=== PATIENT | male | born 1990 | race Caucasian/White ===

== ENCOUNTER 2016-08-02 16:19 | Emergency (ER) | payer MEDICAID ==
[~2016-08-02] VITALS: Ht 165.1 cm; Wt 71.0 kg
[~2016-08-02 16:19] MED LIST: BACT800T5 PO; CEPH-460 PO
[2016-08-02 16:20] VITALS: BP 119/62; PULSE 72; RESP 15; TEMP 98.1; O2SAT 98
== END 2016-08-02 18:50 | disposition left against medical advice (07) ==
LOC: NED 16:19
DX: Z53.21 Procedure and treatment not carried out due to patient leaving prior to being seen by health care provider (principal)
CPT/HCPCS: 99281

== ENCOUNTER 2017-04-09 21:02 | Inpatient (IN) | payer SELFPAY ==
[~2017-04-09] VITALS: Ht 165.1 cm; Wt 65.0 kg
[2017-04-09 21:09] VITALS: BP 145/68; PULSE 126; RESP 20; TEMP 100.3; O2SAT 96
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
[2017-04-09] MEDS ORDERED: PIPERACIL-TAZO 4.5 GM PREMIX 100 ML IV STA (21:48)
[2017-04-09] MEDS ORDERED: VANCOMYCIN INJ 1,000 MG in SODIUM CHLOR 0.9% 250 ML INJ 250 ML IV STA (21:48)
[2017-04-09] MEDS ORDERED: KETOROLAC TROMETHAMINE 30 MG/ML (IVP) VIAL IV PUSH ONE (22:00)
[2017-04-09] MEDS ORDERED: SODIUM CHLOR 0.9% 1000 ML INJ 1,000 ML IV ONE ×2 (22:00)
[2017-04-09 22:29] VITALS: RESP 18
[2017-04-09] MEDS ORDERED: ACETAMINOPHEN 325 MG TAB PO ONE (22:30)
--- NOTE | 2017-04-09 22:32 | RADRPT ---
EXAM DATE/TIME: 04/09/2017 22:06 [facility] COMPARISON: CHEST SINGLE AP, May 29, 2015, 13:51. INDICATIONS : Shortness of breath, cough. MEDICAL HISTORY : None. SURGICAL HISTORY : None. ENCOUNTER: Initial ACUITY: 1 day PAIN SCORE: 0/10 LOCATION: Bilateral chest FINDINGS: A single view of the chest demonstrates the lungs to be symmetrically aerated without evidence of mas s, infiltrate or effusion. The cardiomediastinal contours are unremarkable. Osseous structures are intact. CONCLUSION: Normal examination. Harpal Smith MD on April 09, 2017 at 22:31 Board Certified Radiologist. This report was verified electronically.
[2017-04-09 22:47] LABS: AUTOMATED NEUTROPHIL # 6.4 TH/MM3 (1.8-7.7); BASOPHIL % 0.3 % (0.0-2.0); EOSINOPHIL # 0.1 TH/MM3 (0-0.4); EOSINOPHIL % 0.6 % (0.0-4.0); HEMATOCRIT 34.7 % (39.0-51.0); HEMO FLAGS DIFF FINAL; LYMPH % 15.5 % (9.0-44.0); LYMPHOCYTE # 1.4 TH/MM3 (1.0-4.8); MEAN CELL VOLUME 85.4 FL (80.0-100.0); MEAN CORPUSCULAR HEMOGLOBIN 30.2 PG (27.0-34.0); MEAN CORPUSCULAR HGB CONC 35.4 % (32.0-36.0); MONO % 12.7 % (0.0-8.0); NEUT % 70.9 % (16.0-70.0); PLATELET COUNT 312 TH/MM3 (150-450); RED BLOOD COUNT 4.06 MIL/MM3 (4.50-5.90); RED CELL DISTRIBUTION WIDTH 15.1 % (11.6-17.2)
[2017-04-09 22:57] LABS: BACTERIA, URINE OCC /hpf; BLOOD, URINE LARGE (NEG); COMMENT (UR) CULTURE INDICATED; CULTURE IF INDICATED CULTURE INDICATED; GLUCOSE,URINE NEG (NEG); KETONE, URINE NEG (NEG); MUCUS URINE FEW /lpf (OCC); NITRITE,URINE NEG (NEG); PH, URINE 5.5 (5.0-8.5); URINE COLOR YELLOW (YELLW/STRAW)
[2017-04-09 23:03] LABS: ALT (GPT) 274 U/L (12-78); ANION GAP 9 MEQ/L (5-15); AST (GOT) 114 U/L (15-37); BICARBONATE 26.1 MEQ/L (21.0-32.0); BLOOD UREA NITROGEN 15 MG/DL (7-18); CHLORIDE 100 MEQ/L (98-107); GLOMERULAR FILTRATION RATE 89 ML/MIN (>89); POTASSIUM 3.4 MEQ/L (3.5-5.1); SODIUM (NA) 135 MEQ/L (136-145)
[2017-04-09 23:05] LABS: ALKALINE PHOSPHATASE 77 U/L (45-117); TOTAL BILIRUBIN ADULT 0.8 MG/DL (0.2-1.0)
[2017-04-10 00:16] VITALS: BP 132/66; PULSE 105; RESP 18; TEMP 98.6; O2SAT 97
[2017-04-10] MEDS ORDERED: SODIUM CHLOR 0.9% 1000 ML INJ 1,000 ML IV SCH (00:28)
[2017-04-10] MEDS ORDERED: ENOXAPARIN SODIUM 40 MG/0.4 ML SYRINGE SQ SCH (00:30)
[2017-04-10] MEDS ORDERED: ONDANSETRON HCL 4 MG/2 ML VIAL IVP PRN (00:30)
[2017-04-10] MEDS ORDERED: SODIUM CHLORIDE 0.9% FLUSH 10 ML FLUSH IV FLUSH PRN (00:30)
[2017-04-10] MEDS ORDERED: ACETAMINOPHEN 325 MG TAB PO PRN (00:30)
[2017-04-10] MEDS ORDERED: NALOXONE HCL 0.4 MG/ML AMP IV PUSH PRN (00:30)
[2017-04-10] MEDS ORDERED: Vancomycin Consult Pharmacy 1 EA OTHER SCH (00:45)
[2017-04-10] MEDS ORDERED: VANCOMYCIN 500 MG/NS 100 ML IV ONE ×2 (01:00)
[2017-04-10 03:38] VITALS: BP 130/60; PULSE 84; RESP 16; O2SAT 98
[2017-04-10 08:27] VITALS: BP 120/74; PULSE 90; RESP 18; TEMP 97.8; O2SAT 100
[2017-04-10] MEDS ORDERED: SODIUM CHLORIDE 0.9% FLUSH 10 ML FLUSH IV FLUSH SCH (09:00)
[2017-04-10] MEDS ORDERED: VANCOMYCIN 1,000 MG/NS 250 ML IV SCH ×2 (12:00)
[2017-04-10] MEDS ORDERED: VANCOMYCIN 1,500 MG/NS 500 ML IV SCH ×2 (12:00)
--- NOTE | 2017-04-10 13:37 | HHI.HP ---
[facility]ician Harpal Garza MD Admission Diagnosis SIRS, hematuria, IV drug abuser, UTI, elevated LFTs Diagnoses: Travel History International Travel<30 Days: No Contact w/Intl Traveler <30 Da: No Traveled to Known Affected Are: No History of Present Illness Patient returns today after previous admitted for workup of infective endocarditis. He still been having symptoms. During our discussion he reports that he is going to leave AMA because he has some things to do at home. He is encouraged to stay for treatment but refuses. Interview is discontinue that point and he is asked to return when he is ready for treatment. This note is intended for information and not for billing. Past Family Social History Allergies: Coded Allergies: No Known Allergies (Verified Allergy, Unknown, 04/09/17) Physical Exam Vital Signs Vital Signs Date Time Temp Pulse Resp B/P (MAP) Pulse Ox O2 Delivery O2 Flow Rate FiO2 04/10/17 11:16 04/10/17 08:27 97.8 90 18 120/74 (89) 100 Room Air 04/10/17 03:38 84 16 130/60 (83) 98 Room Air 04/10/17 00:16 98.6 105 18 132/66 (88) 97 Room Air 04/09/17 23:26 18 04/09/17 23:26 18 04/09/17 22:29 18 04/09/17 22:29 98 Room Air 04/09/17 21:09 100.3 126 20 145/68 (93) 96 Physical Exam GENERAL: This is a well-nourished, well-developed patient, in no apparent distress. SKIN: No rashes, ecchymoses or lesions. Cool and dry. HEAD: Atraumatic. Normocephalic. No temporal or scalp tenderness. EYES: Pupils equal round and reactive. Extraocular motions intact. No scleral icterus. No injection or drainage. ENT: Nose without bleeding, purulent drainage or septal hematoma. Throat without erythema, tonsillar hypertrophy or exudate. Uvula midline. Airway patent. NECK: Trachea midline. No JVD or lymphadenopathy. Supple, nontender, no meningeal signs. CARDIOVASCULAR: Regular rate and rhythm without murmurs, gallops, or rubs. RESPIRATORY: Clear to auscultation. Breath sounds equal bilaterally. No wheezes , rales, or rhonchi. GASTROINTESTINAL: Abdomen soft, non-tender, nondistended. No hepato-splenomegaly , or palpable masses. No guarding. MUSCULOSKELETAL: Extremities without clubbing, cyanosis, or edema. No joint tenderness, effusion, or edema noted. No calf tenderness. Negative Homans sign bilaterally. NEUROLOGICAL: Awake and alert. Cranial nerves II through XII intact. Motor and sensory grossly within normal limits. Five out of 5 muscle strength in all muscle groups. Normal speech. Laboratory Laboratory Tests Test 04/09/17 22:25 White Blood Count 9.0 Red Blood Count 4.06 Hemoglobin 12.3 Hematocrit 34.7 Mean Corpuscular Volume 85.4 Mean Corpuscular Hemoglobin 30.2 Mean Corpuscular Hemoglobin Concent 35.4 Red Cell Distribution Width 15.1 Platelet Count 312 Mean Platelet Volume 7.0 Neutrophils (%) (Auto) 70.9 Lymphocytes (%) (Auto) 15.5 Monocytes (%) (Auto) 12.7 Eosinophils (%) (Auto) 0.6 Basophils (%) (Auto) 0.3 Neutrophils # (Auto) 6.4 Lymphocytes # (Auto) 1.4 Monocytes # (Auto) 1.1 Eosinophils # (Auto) 0.1 Basophils # (Auto) 0.0 CBC Comment DIFF FINAL Differential Comment Urine Color YELLOW Urine Turbidity HAZY Urine pH 5.5 Urine Specific [place] 1.011 Urine Protein TRACE Urine Glucose (UA) NEG Urine Ketones NEG Urine Occult Blood LARGE Urine Nitrite NEG Urine Bilirubin NEG Urine Urobilinogen LESS THAN 2.0 Urine Leukocyte Esterase NEG Urine RBC 126 Urine WBC 12 Urine Bacteria OCC Urine Mucus FEW Urine Yeast (Budding) OCC Microscopic Urinalysis Comment CULTURE INDICATED Blood Urea Nitrogen 15 Creatinine 1.03 Random Glucose 134 Total Protein 8.4 Albumin 4.0 Calcium Level 9.2 Alkaline Phosphatase 77 Aspartate Amino Transf (AST/SGOT) 114 Alanine Aminotransferase (ALT/SGPT) 274 Total Bilirubin 0.8 Sodium Level 135 Potassium Level 3.4 Chloride Level 100 Carbon Dioxide Level 26.1 Anion Gap 9 Estimat Glomerular Filtration Rate 89 Lactic Acid Level 1.2 Urine Opiates Screen POS Urine Barbiturates Screen NEG Urine Amphetamines Screen POS Urine Benzodiazepines Screen NEG Urine Cocaine Screen POS Urine Cannabinoids Screen POS Date/Time Source Procedure Growth Status 04/09/17 22:25 Blood Peripheral Aerobic Blood Culture - Preliminary NO GROWTH IN 1 DAY Resulted 04/09/17 22:25 Blood Peripheral Anaerobic Blood Culture - Preliminary NO GROWTH IN 1 DAY Resulted 04/09/17 22:55 Nasal Aspirate Influenza Types A,B Antigen (DAI) - Final NEGATIVE FOR FLU A AND B ANTIGEN.... Complete 04/09/17 22:25 Urine Clean Catch Urine Culture Pending Received Result Diagram: 04/09/17222404/09/172224 Caprini VTE Risk Assessment Caprini VTE Risk Assessment: Mod/High Risk (score >= 2) Caprini Risk Assessment Model Point Value = 1 Point Value = 2 Point Value = 3 Point Value = 5 Age 41-60 Minor surgery BMI > 25 kg/m2 Swollen legs Varicose veins or History of unexplained or recurrent spontaneous Oral contraceptives or hormone replacement Sepsis (< 1 month) Serious lung disease, including pneumonia (< 1 month) Abnormal pulmonary function Acute myocardial infarction Congestive heart failure (< 1 month) History of inflammatory bowel disease Medical patient at bed rest Age 61-74 Arthroscopic surgery Major open surgery (> 45 min) Laparoscopic surgery (> 45 min) Malignancy Confined to bed (> 72 hours) Immobilizing plaster cast Central venous access Age >= 75 History of VTE Family history of VTE Factor V Leiden Prothrombin [id number] Lupus anticoagulant Anticardiolipin antibodies Elevated serum homocysteine Heparin-induced thrombocytopenia Other congenital or acquired thrombophilia Stroke (< 1 month) Elective arthroplasty Hip, pelvis, or leg fracture Acute spinal cord injury (< 1 month) Prophylaxis Regimen Total Risk Factor Score Risk Level Prophylaxis Regimen 0-1 Low Early ambulation 2 Moderate Order ONE of the following: *Sequential Compression Device (SCD) *Heparin 5000 units SQ BID 3-4 Higher Order ONE of the following medications: *Heparin 5000 units SQ TID *Enoxaparin/Lovenox 40 mg SQ daily (WT < 150 kg, CrCl > 30 mL/min) *Enoxaparin/Lovenox 30 mg SQ daily (WT < 150 kg, CrCl > 10-29 mL/min) *Enoxaparin/Lovenox 30 mg SQ BID (WT < 150 kg, CrCl > 30 mL/min) AND/OR *Sequential Compression Device (SCD) 5 or more Highest Order ONE of the following medications: *Heparin 5000 units SQ TID (Preferred with Epidurals) *Enoxaparin/Lovenox 40 mg SQ daily (WT < 150 kg, CrCl > 30 mL/min) *Enoxaparin/Lovenox 30 mg SQ daily (WT < 150 kg, CrCl > 10-29 mL/min) *Enoxaparin/Lovenox 30 mg SQ BID (WT < 150 kg, CrCl > 30 mL/min) AND *Sequential Compression Device (SCD) Physician Certification 2 Midnight Certification Type: Admission for Inpatient Services Order for Inpatient Services The services are ordered in accordance with Medicare regulations or non- Medicare payer requirements, as applicable. In the case of services not specified as inpatient-only, they are appropriately provided as inpatient services in accordance with the 2-midnight benchmark. Estimated LOS (days): 7 days is the estimated time the patient will need to remain in the hospital, assuming treatment plan goals are met and no additional complications. Post-Hospital Plan: Home Eliel Middleton MD Apr 10, 2017 13:37
--- NOTE | 2017-04-10 13:38 | PD.AMA ---
Against Medical Advice Note Diagnosis: (1) Endocarditis Discharge Disposition: Against Medical Advice Pt Condition on Discharge: Deteriorating Recommended Treatment Course Patient recommended to stay in the hospital for treatment, left AMA AMA Statement Patient Rich Mcghee has decided to leave the hospital against medical advice. This patient has the capacity to refuse care and understands the risks of leaving, including permanent disability and/or , and has had an opportunity to ask questions about his condition. The patient has been informed that he may return for care at any time, and follow up has been arranged/advised. Eliel Middleton MD Apr 10, 2017 13:38
[2017-04-11] MEDS ORDERED: PHARMACY ORDERED LAB ONE (11:45)
== END 2017-04-10 14:42 | disposition left against medical advice (07) | DRG 307 ==
LOC: NEPC 21:02 → NEDA 23:22 → NEDH 04-10 04:07
PROVIDERS: ADMIT Hospitalist; ATTEND Hospitalist
DX: I38 Endocarditis, valve unspecified (principal); N39.0 Urinary tract infection, site not specified; F17.210 Nicotine dependence, cigarettes, uncomplicated; R79.89 Other specified abnormal findings of blood chemistry; F19.10 Other psychoactive substance abuse, uncomplicated; R21 Rash and other nonspecific skin eruption; Z85.828 Personal history of other malignant neoplasm of skin
CPT/HCPCS: 71010; 80053; 80307; 81001; 83605; 85025; 86403; 87040; 87077; 87086; 87186; 87804; 96365; J1885; J2543; J3370; J7030; J7050

== ENCOUNTER 2017-04-14 05:47 | Inpatient (IN) | payer SELFPAY ==
[~2017-04-14] VITALS: Ht 165.1 cm; Wt 72.9 kg
[2017-04-14] VITALS (13 sets, daily range): BP systolic 102–126; BP diastolic 56–68; PULSE 62–107; RESP 16–18; TEMP 97.5–98.7; O2SAT 97–100
[2017-04-14] MEDS ORDERED: SODIUM CHLORIDE 0.9% FLUSH 10 ML FLUSH IVF PRN (06:45)
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
--- NOTE | 2017-04-14 06:59 | RADRPT ---
EXAM DATE/TIME: 04/14/2017 06:47 [facility] COMPARISON: CHEST SINGLE AP, April 09, 2017, 22:06. INDICATIONS : Chest pain. MEDICAL HISTORY : None. SURGICAL HISTORY : None. ENCOUNTER: Initial ACUITY: 2 weeks PAIN SCORE: 6/10 LOCATION: Bilateral chest FINDINGS: A single view of the chest demonstrates the lungs to be symmetrically aerated without evidence of mas s, infiltrate or effusion. The cardiomediastinal contours are unremarkable. Osseous structures are intact. CONCLUSION: The lungs are clear. Rakesh Coronado MD on April 14, 2017 at 6:57 Board Certified Radiologist. This report was verified electronically.
[2017-04-14 07:13] LABS: AUTOMATED NEUTROPHIL # 2.5 TH/MM3 (1.8-7.7); BASOPHIL % 0.6 % (0.0-2.0); EOSINOPHIL # 0.3 TH/MM3 (0-0.4); EOSINOPHIL % 5.1 % (0.0-4.0); HEMATOCRIT 35.4 % (39.0-51.0); HEMO FLAGS DIFF FINAL; LYMPH % 36.7 % (9.0-44.0); LYMPHOCYTE # 2.1 TH/MM3 (1.0-4.8); MEAN CELL VOLUME 86.4 FL (80.0-100.0); MEAN CORPUSCULAR HEMOGLOBIN 30.3 PG (27.0-34.0); MEAN CORPUSCULAR HGB CONC 35.1 % (32.0-36.0); MONO % 13.2 % (0.0-8.0); NEUT % 44.4 % (16.0-70.0); PLATELET COUNT 376 TH/MM3 (150-450); RED BLOOD COUNT 4.09 MIL/MM3 (4.50-5.90); RED CELL DISTRIBUTION WIDTH 14.9 % (11.6-17.2); WHITE BLOOD COUNT 5.6 TH/MM3 (4.0-11.0)
[2017-04-14 07:35] LABS: ANION GAP 7 MEQ/L (5-15); BICARBONATE 25.2 MEQ/L (21.0-32.0); BLOOD UREA NITROGEN 12 MG/DL (7-18); CHLORIDE 108 MEQ/L (98-107); GLOMERULAR FILTRATION RATE 124 ML/MIN (>89); SODIUM (NA) 140 MEQ/L (136-145)
[2017-04-14] MEDS ORDERED: IOHEXOL 350 MG/ML 10 ML VIAL (for RAD DIAG) IVCONTRAST ONE (07:41)
--- NOTE | 2017-04-14 08:00 | RADRPT ---
EXAM DATE/TIME: 04/14/2017 07:43 [facility] COMPARISON: CT ABDOMEN & PELVIS W/O CONTRAST, May 29, 2015, 16:00. INDICATIONS : Chest pain, evaluate for septic embolism. IV CONTRAST: 79 cc Omnipaque 350 (iohexol) IV RADIATION DOSE: 23.25 CTDIvol (mGy) MEDICAL HISTORY : Substance abuse SURGICAL HISTORY : None. ENCOUNTER: Initial ACUITY: 2 weeks PAIN SCALE: 6/10 LOCATION: chest TECHNIQUE: Volumetric scanning of the chest was performed using a pulmonary embolism protocol MIP images were re constructed. Using automated exposure control and adjustment of the mA and/or kV according to patien t size, radiation dose was kept as low as reasonably achievable to obtain optimal diagnostic quality images. DICOM format image data is available electronically for review and comparison. Follow-up recommendations for detected pulmonary nodules are based at a minimum on nodule size and pa tient risk factors according to Fleischner Society Guidelines. FINDINGS: PULMONARY ARTERIES: No filling defects are seen in the pulmonary arteries through the segmental level. LUNGS: 8mm subpleural nodule of the right upper lobe, series 3 image 24. A 4 mm nodule is seen in the right lower lobe, series 3 image 63. Mildly nodular consolidation measuring 7 mm seen in the right lower lo be on series 3 image 70. PLEURAE: There is no pleural thickening or pleural effusion. MEDIASTINUM: There is good visualization of the great vessels of the middle mediastinum. No evidence of mediastin al or hilar adenopathy/mass. MUSCULOSKELETAL: There is an old fracture of the right first rib with incomplete union. MISCELLANEOUS: The spleen is mildly enlarged. A believe there is hepatomegaly as well. CONCLUSION: 1. No pulmonary embolus. 2. Subcentimeter pulmonary nodules as above, presumably infectious or inflammatory. 6 month followup noncontrast chest CT is recommended. 3. Apparent hepatosplenomegaly, nonspecific. 4. Nonacute right first rib fracture. Harpal Bueno MD on April 14, 2017 at 7:54 Board Certified Radiologist. This report was verified electronically.
--- NOTE | 2017-04-14 08:20 | PD ---
Data Data Last Documented VS Vital Signs Date Time Temp Pulse Resp B/P (MAP) Pulse Ox O2 Delivery O2 Flow Rate FiO2 04/14/17 07:56 72 18 110/59 (76) 99 Room Air 04/14/17 05:48 97.9 Orders Orders Electrocardiogram (04/14/17 06:40) Basic Metabolic Panel (Bmp) (04/14/17 06:40) Complete Blood Count With Diff (04/14/17 06:40) Troponin I (04/14/17 06:40) Chest, Single Ap (04/14/17 06:40) Ecg Monitoring (04/14/17 06:40) Iv Access Insert/Monitor (04/14/17 06:40) Oximetry (04/14/17 06:40) Oxygen Administration (04/14/17 06:40) Sodium Chloride 0.9% Flush (Ns Flush) (04/14/17 06:45) Ct Pulmonary Angiogram (04/14/17 06:40) Blood Culture (04/14/17 06:45) Iohexol 350 Inj (Omnipaque 350 Inj) (04/14/17 07:41) Admit Order (Ed Use Only) (04/14/17 ) Vital Signs (Adult) Q4H (04/14/17 09:13) Diet Heart Healthy (04/14/17 Breakfast) Activity Oob With Assistance (04/14/17 09:13) Notify Dr: Other (04/14/17 09:13) Labs Laboratory Tests Test 04/14/17 06:45 White Blood Count 5.6 TH/MM3 Red Blood Count 4.09 MIL/MM3 Hemoglobin 12.4 GM/DL Hematocrit 35.4 % Mean Corpuscular Volume 86.4 FL Mean Corpuscular Hemoglobin 30.3 PG Mean Corpuscular Hemoglobin Concent 35.1 % Red Cell Distribution Width 14.9 % Platelet Count 376 TH/MM3 Mean Platelet Volume 7.1 FL Neutrophils (%) (Auto) 44.4 % Lymphocytes (%) (Auto) 36.7 % Monocytes (%) (Auto) 13.2 % Eosinophils (%) (Auto) 5.1 % Basophils (%) (Auto) 0.6 % Neutrophils # (Auto) 2.5 TH/MM3 Lymphocytes # (Auto) 2.1 TH/MM3 Monocytes # (Auto) 0.7 TH/MM3 Eosinophils # (Auto) 0.3 TH/MM3 Basophils # (Auto) 0.0 TH/MM3 CBC Comment DIFF FINAL Differential Comment Blood Urea Nitrogen 12 MG/DL Creatinine 0.77 MG/DL Random Glucose 108 MG/DL Calcium Level 8.4 MG/DL Sodium Level 140 MEQ/L Potassium Level 4.0 MEQ/L Chloride Level 108 MEQ/L Carbon Dioxide Level 25.2 MEQ/L Anion Gap 7 MEQ/L Estimat Glomerular Filtration Rate 124 ML/MIN Troponin I LESS THAN 0.02 NG/ML MDM Supervised Visit with TOHMAS: Yes Narrative Course To 26-year-old man presents emergency department concern for endocarditis, status post leaving AMA twice in the same. Blood cultures were growing out gram -negative bacillus, non-anthracis from multiple blood cultures from his initial visit. History of polysubstance abuse. Here back with fevers chills chest pain. Initially evaluated by Dr. Aponte, signed out to me to follow-up on results of diagnostic testing. LABS: CBC remarkable for mild decrease in hemoglobin. CMP unremarkable CTA: No PE, multiple nodules Chest x-ray: Lungs are clear. FINAL: Patient with bacteremia, active IV drug use, concern for endocarditis. States he is ready to stay for her whenever. Evaluation and treatment may be necessary. He was readmitted. Diagnosis Primary Impression: Endocarditis Admitting Information Admitting Physician Requests: Admit Scripts Unable to Obtain Active Prescriptions or Reported Meds Meng Mckeon MD Apr 14, 2017 08:20
[2017-04-14] MEDS ORDERED: NALOXONE HCL 0.4 MG/ML AMP IV PUSH PRN (09:30)
[2017-04-14] MEDS ORDERED: MAGNESIUM HYDROXIDE SUSP 30 ML CUP PO PRN (09:30)
[2017-04-14] MEDS ORDERED: SENNOSIDES 8.6 MG TAB PO PRN (09:30)
[2017-04-14] MEDS ORDERED: BISACODYL 10 MG SUPP RECTAL PRN (09:30)
[2017-04-14] MEDS ORDERED: LACTULOSE SYRUP 20 GM/30 ML CUP PO PRN (09:30)
[2017-04-14] MEDS ORDERED: VANCOMYCIN INJ 1,000 MG in SODIUM CHLOR 0.9% 250 ML INJ 250 ML IV SCH (09:30)
[2017-04-14] MEDS ORDERED: Vancomycin Consult Pharmacy 1 EA OTHER SCH (09:30)
[2017-04-14] MEDS ORDERED: SODIUM CHLORIDE 0.9% FLUSH 10 ML FLUSH IV FLUSH PRN (09:30)
[2017-04-14] MEDS ORDERED: ONDANSETRON HCL 4 MG/2 ML VIAL IVP PRN (09:30)
--- NOTE | 2017-04-14 11:18 | ECHRPT ---
Indication: ENDOCARDITIS CONCLUSIONS No evidence of vegetation Normal LVEF Trace to mild MR/TR BP: / HR: Rhythm: Technical Quality: Medications Complications There were no complications prior to, during or in recovery from the transesophag eal echocardiogram.. Proc. Components FINDINGS LEFT VENTRICLE Normal left ventricular size and wall thickness. The left ventricular systolic function is normal wi th an estimated ejection fraction in the range of 60-65%. Left ventricular diastolic function parameters a re normal. RIGHT VENTRICLE Normal right ventricular size and systolic function. LEFT ATRIUM The left atrial size is normal. The left atrial appendage appears to be morphologically normal. RIGHT ATRIUM The right atrial size is normal. ATRIAL APPENDAGES No thrombus detected in the left atrial appendage. AORTIC VALVE Trileaflet aortic valve. Trileaflet aortic valve. No aortic valve stenosis or regurgitation. TRICUSPID VALVE Structurally normal tricuspid valve. No tricuspid valve stenosis or regurgitation. The tricuspid shira ve is not well visualized. Mane Clements MD (Electronically Signed) Final Date:14 April 2017 11:17
--- NOTE | 2017-04-14 11:24 | MB ---
cc: MANE CLEMENTS MD DATE OF CONSULTATION: 04/14/2017 REASON FOR CONSULTATION: Transesophageal echocardiogram. HISTORY OF PRESENT ILLNESS The patient is a pleasant, though troubled 26-year gentleman, with a history of polysubstance abuse who had presented with bacteremia but left AMA. He presented again as he was told to come back for a ERASTO. He complains of multiple weeks of pleuritic chest discomfort but no convincing angina, no shortness of breath, lightheadedness, dizziness. PAST MEDICAL HISTORY: Polysubstance abuse. CURRENT MEDICATIONS None. PHYSICAL EXAMINATION VITAL SIGNS: Afebrile, pulse 90, respiratory rate 18, BP 120/74 sating 100% on room air. In general, a pleasant disheveled young gentleman with appearance of multiple skin lesions likely due to drug use. Neck: No JVD. Lungs: Clear to auscultation bilaterally. Cardiovascular: Regular rate and rhythm. No murmurs appreciated. Abdomen: Benign. Extremities: No edema. Transesophageal echocardiogram was performed today and was negative for vegetation. LABORATORY DATA White count 5.6, hematocrit 35.4, platelet 376. Sodium 140, potassium 4.0, chloride 108, bicarb 25.2, BUN 12, creatinine 0.77, glucose 108, troponin is less and 0.02. IMAGING STUDIES: CT angiography showed no pulmonary embolus but there were infectious / inflammatory lung nodules and 6-month CT was recommended. EKG: Shows sinus rhythm with no ST or T-wave changes. IMPRESSION 1. Bacteremia. The patient has bacteremia during his last hospital admission. A transesophageal echocardiogram has been performed and did not show any evidence of vegetation/endocarditis. 2. Pleuritic chest pain. This chest pain is with deep inspiration and clearly noncardiac. Hi very young age makes coronary artery disease extremely unlikely, plus he has a normal EKG and normal troponin. I do not believe he requires any further ischemic workup. I will sign off at this time. Please feel free to call with any questions. Thank you again for the opportunity to participate in this patient's care. Mane Clements MD [facility] /10:52 AM /11:20 AM
--- NOTE | 2017-04-14 12:27 | EKG ---
Date Performed: 04/14/2017 Time Performed: 06:04:45 PTAGE: 26 years EKG: Sinus rhythm BORDERLINE RIGHT AXIS DEVIATION BORDERLINE ECG NO PREVIOUS TRACING DOCTOR: Campos Hanson Interpretating Date/Time 04/14/2017 12:25:44
[2017-04-14] MEDS: VANCOMYCIN 1,500 MG/NS 500 ML IV SCH ×4 (13:50→23:35)
--- NOTE | 2017-04-14 14:56 | HHI.HP ---
[facility] No Primary Care Physician Admission Diagnosis bacteremia, suspect endocarditis Diagnoses: Chief Complaint: Patient ready for treatment for bacteremia Travel History International Travel<30 Days: No Contact w/Intl Traveler <30 Da: No Traveled to Known Affected Are: No History of Present Illness This is a 26-year-old male IV drug user who had 2 previous admission due to bacteremia from bacillus no anthracis who left AMA twice. Patient stated that he came back because he is ready for treatment. Patient also complained of chest pain with deep inspiration. Deny any shortness of breathing or cough. Denies any association with food. Deny any recent upper respiratory infection. Otherwise he has no complaints. Denied any fevers or chills. All other review system reviewed and negative. Past Family Social History Past Medical History Recent admission due to bacteremia Past Surgical History Deny past surgical history. Reported Medications Reported Meds & Active Scripts Active Active Prescriptions or Reported Medications Unobtainable Allergies: Coded Allergies: No Known Allergies (Verified Allergy, Unknown, 04/14/17) Active Ordered Medications Current Medications Sodium Chloride (NS Flush) 2 ml UNSCH PRN IVF FLUSH AFTER USING IV ACCESS; Start 04/14/17 at 06:45; Stop 04/14/17 at 09:31; Status DC Iohexol (Omnipaque 350 Inj) 79 ml STK-MED ONCE IVCONTRAST Last administered on 04/14/17t 07:41; Start 04/14/17 at 07:41; Stop 04/14/17 at 07:46; Status DC Sodium Chloride (NS Flush) 2 ml UNSCH PRN IV FLUSH FLUSH AFTER USING IV ACCESS ; Start 04/14/17 at 09:30 Sodium Chloride (NS Flush) 2 ml BID IV FLUSH ; Start 04/14/17 at 21:00 Acetaminophen (Tylenol) 650 mg Q4H PRN PO TEMP > 100.4 or pain 1-10; Start at 09:30 Ondansetron HCl (Zofran Inj) 4 mg Q6H PRN IVP NAUSEA OR VOMITING; Start at 09:30 Naloxone HCl (Narcan Inj) 0.4 mg UNSCH PRN IV PUSH SEE LABEL COMMENTS; Start 04/14/17 at 09:30 Senna/Docusate Sodium (Milly-Colace) 1 tab BID PO ; Start 04/14/17 at 21:00 Magnesium Hydroxide (Milk Of Magnesia Liq) 30 ml Q12H PRN PO Mild constipation ; Start 04/14/17 at 09:30 Sennosides (Senokot) 17.2 mg Q12H PRN PO Moderate constipation; Start at 09:30 Bisacodyl (Dulcolax Supp) 10 mg DAILY PRN RECTAL SEVERE CONSITIPATION; Start 04/14/17 at 09:30 Lactulose (Lactulose Liq) 30 ml DAILY PRN PO SEVERE CONSITIPATION; Start 04/14 at 09:30 Vancomycin HCl 1000 mg/Sodium Chloride 250 ml @ 250 mls/hr Q12H IV ; Start at 09:30; Stop 04/14/17 at 10:01; Status DC Pharmacy Profile Note 0 ml @ 0 mls/hr UNSCH OTHER ; Start 04/14/17 at 09:30 Vancomycin HCl 1500 mg/Sodium Chloride 515 ml @ 257.5 mls/ hr Q12H IV Last administered on 04/14/17t 13:50; Start 04/14/17 at 11:00 Miscellaneous Information SPECIFIC LAB TO BE ... ONCE ONCE .XX ; Start at 22:45; Stop 04/15/17 at 22:46 Family History Mother and father have hypertension Social History Patient does not drink alcohol. He does endorse marijuana use. IV drug abuse 3 years ago but none since. Physical Exam Vital Signs Vital Signs Date Time Temp Pulse Resp B/P (MAP) Pulse Ox O2 Delivery O2 Flow Rate FiO2 04/14/17 11:23 98.6 75 16 102/63 (76) 100 04/14/17 10:53 97.5 70 18 102/58 (73) 99 04/14/17 10:15 98.5 78 18 112/58 (76) 100 04/14/17 10:03 04/14/17 07:56 72 18 110/59 (76) 99 Room Air 04/14/17 06:45 97 Room Air 04/14/17 06:07 77 16 120/65 (83) 100 Room Air 04/14/17 05:59 18 04/14/17 05:48 97.9 107 16 126/68 (87) 98 Room Air Physical Exam GENERAL: This is a well-nourished, well-developed patient, in no apparent distress sitting comfortably in bed eating his lunch. SKIN: No rashes, ecchymoses or lesions. Cool and dry. HEAD: Atraumatic. Normocephalic. No temporal or scalp tenderness. EYES: Pupils equal round and reactive. Extraocular motions intact. No scleral icterus. No injection or drainage. ENT: Nose without bleeding, purulent drainage or septal hematoma. Throat without erythema, tonsillar hypertrophy or exudate. Uvula midline. Airway patent. NECK: Trachea midline. No JVD or lymphadenopathy. Supple, nontender, no meningeal signs. CARDIOVASCULAR: Regular rate and rhythm without murmurs, gallops, or rubs. RESPIRATORY: Clear to auscultation. Breath sounds equal bilaterally. No wheezes , rales, or rhonchi. GASTROINTESTINAL: Abdomen soft, non-tender, nondistended. No hepato-splenomegaly , or palpable masses. No guarding. MUSCULOSKELETAL: Extremities without clubbing, cyanosis, or edema. No joint tenderness, effusion, or edema noted. No calf tenderness. Negative Homans sign bilaterally. NEUROLOGICAL: Awake and alert. Cranial nerves II through XII intact. Motor and sensory grossly within normal limits. Five out of 5 muscle strength in all muscle groups. Normal speech. Laboratory Laboratory Tests Test 04/14/17 06:45 White Blood Count 5.6 Red Blood Count 4.09 Hemoglobin 12.4 Hematocrit 35.4 Mean Corpuscular Volume 86.4 Mean Corpuscular Hemoglobin 30.3 Mean Corpuscular Hemoglobin Concent 35.1 Red Cell Distribution Width 14.9 Platelet Count 376 Mean Platelet Volume 7.1 Neutrophils (%) (Auto) 44.4 Lymphocytes (%) (Auto) 36.7 Monocytes (%) (Auto) 13.2 Eosinophils (%) (Auto) 5.1 Basophils (%) (Auto) 0.6 Neutrophils # (Auto) 2.5 Lymphocytes # (Auto) 2.1 Monocytes # (Auto) 0.7 Eosinophils # (Auto) 0.3 Basophils # (Auto) 0.0 CBC Comment DIFF FINAL Differential Comment Blood Urea Nitrogen 12 Creatinine 0.77 Random Glucose 108 Calcium Level 8.4 Sodium Level 140 Potassium Level 4.0 Chloride Level 108 Carbon Dioxide Level 25.2 Anion Gap 7 Estimat Glomerular Filtration Rate 124 Troponin I LESS THAN 0.02 Date/Time Source Procedure Growth Status 04/14/17 06:45 Blood Peripheral Aerobic Blood Culture Pending Received 04/14/17 06:45 Blood Peripheral Anaerobic Blood Culture Pending Received Result Diagram: 04/14/1745 04/14/17644 Imaging Last Impressions Chest X-Ray 04/14/17639 Signed Impressions: Service Date/Time: Friday, April 14, 2017 06:47 - CONCLUSION: The lungs are clear. Rakesh Coronado MD CT Angiography 04/14/17639 Signed Impressions: Service Date/Time: Friday, April 14, 2017 07:43 - CONCLUSION: 1. No pulmonary embolus. 2. Subcentimeter pulmonary nodules as above, presumably infectious or inflammatory. 6 month followup noncontrast chest CT is recommended. 3. Apparent hepatosplenomegaly, nonspecific. 4. Nonacute right first rib fracture. MD Robel Petersi VTE Risk Assessment Caprini VTE Risk Assessment: No/Low Risk (score <= 1) Caprini Risk Assessment Model Point Value = 1 Point Value = 2 Point Value = 3 Point Value = 5 Age 41-60 Minor surgery BMI > 25 kg/m2 Swollen legs Varicose veins or History of unexplained or recurrent spontaneous Oral contraceptives or hormone replacement Sepsis (< 1 month) Serious lung disease, including pneumonia (< 1 month) Abnormal pulmonary function Acute myocardial infarction Congestive heart failure (< 1 month) History of inflammatory bowel disease Medical patient at bed rest Age 61-74 Arthroscopic surgery Major open surgery (> 45 min) Laparoscopic surgery (> 45 min) Malignancy Confined to bed (> 72 hours) Immobilizing plaster cast Central venous access Age >= 75 History of VTE Family history of VTE Factor V Leiden Prothrombin 12200B Lupus anticoagulant Anticardiolipin antibodies Elevated serum homocysteine Heparin-induced thrombocytopenia Other congenital or acquired thrombophilia Stroke (< 1 month) Elective arthroplasty Hip, pelvis, or leg fracture Acute spinal cord injury (< 1 month) Prophylaxis Regimen Total Risk Factor Score Risk Level Prophylaxis Regimen 0-1 Low Early ambulation 2 Moderate Order ONE of the following: *Sequential Compression Device (SCD) *Heparin 5000 units SQ BID 3-4 Higher Order ONE of the following medications: *Heparin 5000 units SQ TID *Enoxaparin/Lovenox 40 mg SQ daily (WT < 150 kg, CrCl > 30 mL/min) *Enoxaparin/Lovenox 30 mg SQ daily (WT < 150 kg, CrCl > 10-29 mL/min) *Enoxaparin/Lovenox 30 mg SQ BID (WT < 150 kg, CrCl > 30 mL/min) AND/OR *Sequential Compression Device (SCD) 5 or more Highest Order ONE of the following medications: *Heparin 5000 units SQ TID (Preferred with Epidurals) *Enoxaparin/Lovenox 40 mg SQ daily (WT < 150 kg, CrCl > 30 mL/min) *Enoxaparin/Lovenox 30 mg SQ daily (WT < 150 kg, CrCl > 10-29 mL/min) *Enoxaparin/Lovenox 30 mg SQ BID (WT < 150 kg, CrCl > 30 mL/min) AND *Sequential Compression Device (SCD) Assessment and Plan Assessment and Plan This is a 26-year-old female who presented with bacteremia on last admission and left AMA twice Bacteremia 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 Labs reviewed from this admission relatively normal. -Will continue with vancomycin. Have pharmacy dose. Repeat blood cultures. -Consult infectious disease. -Satellite Specialist consulted for ERASTO which was negative. Pleuritic-type chest pain -Noncardiac. Per duplex trimmer very unlikely that this is cardiac in nature. -Can use ibuprofen when necessary for pain. Drug abuse -? Drug abuse since patient left AMA multiple times and last time left with a line in place. -Will get a urine drug screen. DVT prophylaxis SCDs and encourage ambulation. Physician Certification 2 Midnight Certification Type: Admission for Inpatient Services Order for Inpatient Services The services are ordered in accordance with Medicare regulations or non- Medicare payer requirements, as applicable. In the case of services not specified as inpatient-only, they are appropriately provided as inpatient services in accordance with the 2-midnight benchmark. Estimated LOS (days): 3 3 days is the estimated time the patient will need to remain in the hospital, assuming treatment plan goals are met and no additional complications. Post-Hospital Plan: Renu Ramirez MD Apr 14, 2017 14:56
--- NOTE | 2017-04-14 17:32 | PD.CONS ---
History of Present Illness Service Infectious disease Consult Requested By Dr. Rowan Reason for Consult Evaluate patient with bacteremia, known IV drug use Primary Care Physician No Primary Care Physician Diagnoses: History of Present Illness Patient seen and examined. Records reviewed. Patient is a 26-year-old male, who was initially admitted at [place] the first week of March with cellulitis in his left leg. He had blood cultures done at that time and he had multiple sets of blood culture that grew Bacillus. An echo was done at that time which did not show any evidence of any endocarditis. ERASTO was recommended, but the patient signed out AGAINST MEDICAL ADVICE. He came back to the emergency room on April 09, but he signed out AGAINST MEDICAL ADVICE soon after that. He had repeat blood cultures done on April 09 in the are negative. This time patient came back complaining of chest pain. It is pleuritic in nature. He denies any shortness of breath or any congestion or cough. He has not had any respiratory symptoms, GI or any urinary complaints. He states he had some fever several days ago. Patient has known IV drug use, and the last time he used it was about 2 weeks ago. Since admission he has not had any fever. His WBC is normal. Blood cultures are negative so far. CTA did not show any pulmonary embolism but it did show some scattered nodular lesion suggestive of inflammatory process. ERASTO was done and it did not show any obvious evidence of endocarditis. Review of Systems Constitutional: COMPLAINS OF: Fever, Chills Ears, nose, mouth, throat: DENIES: Nasal discharge, Oral lesions, Throat pain, Sinus Pain Respiratory: DENIES: Cough, Shortness of breath Cardiovascular: COMPLAINS OF: Chest pain, DENIES: Palpitations, Syncope, Dyspnea on Exertion, Lower Extremity Edema Gastrointestinal: DENIES: Abdominal pain, Diarrhea, Nausea, Vomiting, Difficulty Swallowing Genitourinary: DENIES: Urgency, Hematuria Musculoskeletal: DENIES: Joint pain, Joint Swelling, Back pain Integumentary: COMPLAINS OF: Rash Neurologic: DENIES: Headache, Localized weakness Psychiatric: DENIES: Hallucinations Past Family Social History Allergies: Coded Allergies: No Known Allergies (Verified Allergy, Unknown, 04/14/17) Past Medical History Skin cancer Past Surgical History Some kind of jaw surgery related to trauma Reported Medications Reported Meds & Active Scripts Active Active Prescriptions or Reported Medications Unobtainable Active Ordered Medications Current Medications Medications (Trade) Dose Ordered Sig/Mikal Route Start Time Stop Time Status Last Admin (NS Flush) 2 ml UNSCH PRN IV FLUSH 04/14/17 09:30 (NS Flush) 2 ml BID IV FLUSH 04/14/17 21:00 (Tylenol) 650 mg Q4H PRN PO 04/14/17 09:30 (Zofran Inj) 4 mg Q6H PRN IVP 04/14/17 09:30 (Narcan Inj) 0.4 mg UNSCH PRN IV PUSH 04/14/17 09:30 (Milly-Colace) 1 tab BID PO 04/14/17 21:00 (Milk Of Magnesia Liq) 30 ml Q12H PRN PO 04/14/17 09:30 (Senokot) 17.2 mg Q12H PRN PO 04/14/17 09:30 (Dulcolax Supp) 10 mg DAILY PRN RECTAL 04/14/17 09:30 (Lactulose Liq) 30 ml DAILY PRN PO 04/14/17 09:30 Pharmacy Profile Note 0 ml @ 0 mls/hr UNSCH OTHER 04/14/17 09:30 Vancomycin HCl 1500 mg/Sodium Chloride 515 ml @ 257.5 mls/ hr Q12H IV 04/14/17 11:00 04/14/17 13:50 Miscellaneous Information SPECIFIC LAB TO BE ZULEYKA... ONCE ONCE .XX 04/15/17 22:45 04/15/17 22:46 (Motrin) 600 mg Q8H PRN PO 04/14/17 15:00 Family History Noncontributory Social History + Tobacco.1ppd No ETOH. + IV drugs use He rents a room Physical Exam Vital Signs Vital Signs Date Time Temp Pulse Resp B/P (MAP) Pulse Ox O2 Delivery O2 Flow Rate FiO2 04/14/17 15:47 98.7 71 16 110/56 (74) 100 04/14/17 11:23 98.6 75 16 102/63 (76) 100 04/14/17 10:53 97.5 70 18 102/58 (73) 99 04/14/17 10:15 98.5 78 18 112/58 (76) 100 04/14/17 10:03 04/14/17 07:56 72 18 110/59 (76) 99 Room Air 04/14/17 06:45 97 Room Air 04/14/17 06:07 77 16 120/65 (83) 100 Room Air 04/14/17 05:59 18 04/14/17 05:48 97.9 107 16 126/68 (87) 98 Room Air Physical Exam GENERAL: Patient is a well-nourished, well-developed male, awake and alert, not in respiratory distress. SKIN: Warm and dry. Has scattered papular rash in his face and both UE and LE HEAD: Atraumatic. Normocephalic. No temporal wasting, or tenderness. EYES: [place] conjunctiva. No petechia or hemorrhage. Pupils equal, round and reactive to light. Extraocular movements full and intact. No scleral icterus. No injection or drainage. EARS, NOSE AND THROAT: Nose without bleeding or purulent nasal discharge. No sinus tenderness. Mucous membranes pink and moist. No oral lesions noted. No exudate. No oral thrush. NECK: Trachea midline. Supple and not tender, no meningeal signs CARDIOVASCULAR: Regular rate and rhythm. No murmurs, rubs or gallops heard RESPIRATORY: Clear to auscultation. Breath sounds equal bilaterally. No rales , wheezing or rhonchi ABDOMEN: Soft, non-tender, nondistended. Bowel sounds present and normoactive. No guarding. No rebound. No organomegaly. EXTREMITIES: No clubbing, cyanosis, or edema. No joint effusion, has good ROM. No calf tenderness. Well perfused and warm. NEUROLOGICAL: Awake and alert. Cranial nerves grossly intact. Motor grossly within normal limits. PSYCHIATRIC: Normal affect, calm and cooperative. LINE: No evidence of infection Laboratory Laboratory Tests Test 04/14/17 06:45 White Blood Count 5.6 Red Blood Count 4.09 Hemoglobin 12.4 Hematocrit 35.4 Mean Corpuscular Volume 86.4 Mean Corpuscular Hemoglobin 30.3 Mean Corpuscular Hemoglobin Concent 35.1 Red Cell Distribution Width 14.9 Platelet Count 376 Mean Platelet Volume 7.1 Neutrophils (%) (Auto) 44.4 Lymphocytes (%) (Auto) 36.7 Monocytes (%) (Auto) 13.2 Eosinophils (%) (Auto) 5.1 Basophils (%) (Auto) 0.6 Neutrophils # (Auto) 2.5 Lymphocytes # (Auto) 2.1 Monocytes # (Auto) 0.7 Eosinophils # (Auto) 0.3 Basophils # (Auto) 0.0 CBC Comment DIFF FINAL Differential Comment Blood Urea Nitrogen 12 Creatinine 0.77 Random Glucose 108 Calcium Level 8.4 Sodium Level 140 Potassium Level 4.0 Chloride Level 108 Carbon Dioxide Level 25.2 Anion Gap 7 Estimat Glomerular Filtration Rate 124 Troponin I LESS THAN 0.02 Date/Time Source Procedure Growth Status 04/14/17 06:45 Blood Peripheral Aerobic Blood Culture Pending Received 04/14/17 06:45 Blood Peripheral Anaerobic Blood Culture Pending Received Result Diagram: 04/14/1764404/14/17644 Imaging RADIOLOGY STUDIES/FILMS REVIEWED Chest X-Ray 04/14/17639 Signed Impressions: Service Date/Time: Friday, April 14, 2017 06:47 - CONCLUSION: The lungs are clear. Rakesh Coronado MD CT Angiography 04/14/17639 Signed Impressions: Service Date/Time: Friday, April 14, 2017 07:43 - CONCLUSION: 1. No pulmonary embolus. 2. Subcentimeter pulmonary nodules as above, presumably infectious or inflammatory. 6 month followup noncontrast chest CT is recommended. 3. Apparent hepatosplenomegaly, nonspecific. 4. Nonacute right first rib fracture. Harpal uBeno MD Assessment and Plan Assessment and Plan IMPRESSION Previous episode of Bacillus bacteremia, BC (+) Mar 29- - ERASTO negative - CTA however showing nodular lesions very suggestive of septic emboli CP, pleuritic due to septic emboli to the lung Known IVDU RECOMMENDATION Continue IV Vanco Follow BC With his clinical picture and results of work-up, this is very suggestive of R sided endocarditis Will determine course of Rx once work-up completed Monitor progress I will follow along with you Thank you for this consultation Connie Dale MD Apr 14, 2017 17:32
[2017-04-14] MEDS: SODIUM CHLORIDE 0.9% FLUSH 10 ML FLUSH IV FLUSH SCH (20:52)
[2017-04-14] MEDS: DOCUSATE SODIUM 50 MG/SENNA 8.6 MG TAB PO SCH (20:53)
[2017-04-15] VITALS (11 sets, daily range): BP systolic 101–119; BP diastolic 49–69; PULSE 55–69; RESP 16–18; TEMP 97.3–98.6; O2SAT 99–100
[2017-04-15] MEDS: DOCUSATE SODIUM 50 MG/SENNA 8.6 MG TAB PO SCH ×2 (09:00→21:00)
--- NOTE | 2017-04-15 11:51 | HHI.PR ---
Subjective Remarks f/u for bacteremia patient has no complaints. Denied any chest pain. no acute events overnight. Objective Vitals Vital Signs Date Time Temp Pulse Resp B/P (MAP) Pulse Ox O2 Delivery O2 Flow Rate FiO2 04/15/17 08:06 97.3 67 18 109/69 (82) 100 04/15/17 06:28 97.7 56 17 112/58 (76) 99 04/15/17 03:50 98.3 55 115/50 (71) 100 04/15/17 02:00 63 04/15/17 01:00 60 04/15/17 00:12 98.1 69 105/49 (67) 99 04/15/17 00:00 56 04/14/17 23:00 62 04/14/17 22:22 97.8 80 123/62 (82) 100 04/14/17 21:00 80 04/14/17 20:00 64 04/14/17 19:00 92 04/14/17 15:47 98.7 71 16 110/56 (74) 100 I/O 04/14/17 04/14/17 04/14/17 04/15/17 04/15/17 04/15/17 07:00 15:00 23:00 07:00 15:00 23:00 Intake Total 1180 ml 755 ml Balance 1180 ml 755 ml Intake Oral 640 ml 240 ml IV Total 540 ml 515 ml # Voids 2 3 # Bowel Movements 0 Result Diagram: 04/14/17 0645 04/14/17 0645 Objective Remarks GENERAL: in NAD CARDIOVASCULAR: Regular rate and rhythm without murmurs, gallops, or rubs. RESPIRATORY: Breath sounds equal bilaterally. No accessory muscle use. GASTROINTESTINAL: Abdomen soft, non-tender, nondistended. MUSCULOSKELETAL: No cyanosis, or edema. BACK: Nontender without obvious deformity. No CVA tenderness. Medications and IVs Current Medications Sodium Chloride (NS Flush) 2 ml UNSCH PRN IVF FLUSH AFTER USING IV ACCESS; Start 04/14/17 at 06:45; Stop 04/14/17 at 09:31; Status DC Iohexol (Omnipaque 350 Inj) 79 ml STK-MED ONCE IVCONTRAST Last administered on 04/14/17t 07:41; Start 04/14/17 at 07:41; Stop 04/14/17 at 07:46; Status DC Sodium Chloride (NS Flush) 2 ml UNSCH PRN IV FLUSH FLUSH AFTER USING IV ACCESS ; Start 04/14/17 at 09:30 Sodium Chloride (NS Flush) 2 ml BID IV FLUSH Last administered on 04/14/17 20 :52; Start 04/14/17 at 21:00 Acetaminophen (Tylenol) 650 mg Q4H PRN PO TEMP > 100.4 or pain 1-10; Start at 09:30 Ondansetron HCl (Zofran Inj) 4 mg Q6H PRN IVP NAUSEA OR VOMITING; Start at 09:30 Naloxone HCl (Narcan Inj) 0.4 mg UNSCH PRN IV PUSH SEE LABEL COMMENTS; Start 04/14/17 at 09:30 Senna/Docusate Sodium (Milly-Colace) 1 tab BID PO ; Start 04/14/17 at 21:00 Magnesium Hydroxide (Milk Of Magnesia Liq) 30 ml Q12H PRN PO Mild constipation ; Start 04/14/17 at 09:30 Sennosides (Senokot) 17.2 mg Q12H PRN PO Moderate constipation; Start at 09:30 Bisacodyl (Dulcolax Supp) 10 mg DAILY PRN RECTAL SEVERE CONSITIPATION; Start 04/14/17 at 09:30 Lactulose (Lactulose Liq) 30 ml DAILY PRN PO SEVERE CONSITIPATION; Start 04/14 at 09:30 Vancomycin HCl 1000 mg/Sodium Chloride 250 ml @ 250 mls/hr Q12H IV ; Start at 09:30; Stop 04/14/17 at 10:01; Status DC Pharmacy Profile Note 0 ml @ 0 mls/hr UNSCH OTHER ; Start 04/14/17 at 09:30 Vancomycin HCl 1500 mg/Sodium Chloride 515 ml @ 257.5 mls/ hr Q12H IV Last administered on 04/14/17 23:35; Start 04/14/17 at 11:00 Miscellaneous Information SPECIFIC LAB TO BE ZULEYKA... ONCE ONCE .XX ; Start at 22:45; Stop 04/15/17 at 22:46 Ibuprofen (Motrin) 600 mg Q8H PRN PO pleuritic chest pain; Start 04/14/17 at 15:00 A/P Assessment and Plan This is a 26-year-old female who presented with bacteremia on last admission and left AMA twice Bacteremia Bacillus no anthracis -Culture from 03/29 2 positive, 03/31 05/30 positive and 04/02 05/30 positive. Labs reviewed from this admission relatively normal. -CT scan this chest suggests septic emboli concerning for right-sided endocarditis despite negative ERATSO. -Infectious disease consulted. Appreciate recommendations. -Continue with vancomycin pending final blood cultures. Pleuritic-type chest pain -Noncardiac. Per sausage grinder very unlikely that this is cardiac in nature. This is most likely secondary to septic emboli. -Continue with ibuprofen when necessary for pain. polysubstance abuse -UA + cocaine, marijuana, and benzoes. -education given and discourage use. DVT prophylaxis SCDs and encourage ambulation. Discharge Planning Patient may need long-term IV antibiotics for endocarditis. Renu Rowan MD Apr 15, 2017 11:51
[2017-04-15] MEDS: SODIUM CHLORIDE 0.9% FLUSH 10 ML FLUSH IV FLUSH SCH ×2 (15:22→21:03)
[2017-04-15] MEDS: VANCOMYCIN 1,500 MG/NS 500 ML IV SCH ×2 (15:28)
[2017-04-15] MEDS ORDERED: PHARMACY ORDERED LAB ONE (19:45)
[2017-04-15] MEDS ORDERED: VANCOMYCIN 1,500 MG/NS 500 ML IV SCH ×2 (20:00)
[2017-04-16 04:25] VITALS: BP 105/60; PULSE 67; RESP 16; TEMP 97.8; O2SAT 99
[2017-04-16] MEDS ORDERED: PHARMACY ORDERED LAB ONE (05:45)
[2017-04-16] MEDS ORDERED: VANCOMYCIN 1,500 MG/NS 500 ML IV SCH ×2 (06:00)
[2017-04-16 08:00] VITALS: BP 105/55; PULSE 77; RESP 18; TEMP 97.7; O2SAT 100
[2017-04-16] MEDS: DOCUSATE SODIUM 50 MG/SENNA 8.6 MG TAB PO SCH ×2 (09:00→21:00)
--- NOTE | 2017-04-16 09:15 | HHI.PR ---
Subjective Remarks Follow-up for bacteremia and septic emboli Patient brings felt like someone smoking tobacco. Patient stated that his father was smoking tobacco. Discussed with patient's nurse she stated that this was a ready address. Cannula complaints. Denied any chest pain or shortness of breathing. Patient remains afebrile. Objective Vitals Vital Signs Date Time Temp Pulse Resp B/P (MAP) Pulse Ox O2 Delivery O2 Flow Rate FiO2 04/16/17 04:25 97.8 67 16 105/60 (75) 99 04/16/17 04:00 Room Air 04/16/17 00:00 Room Air 04/15/17 23:47 97.7 62 16 119/60 (79) 100 04/15/17 20:27 97.5 66 16 105/52 (69) 99 04/15/17 20:00 Room Air 04/15/17 16:06 98.6 69 18 101/60 (74) 100 04/15/17 12:06 98.2 66 18 111/54 (73) 100 I/O 04/15/17 04/15/17 04/15/17 04/16/17 04/16/17 04/16/17 07:00 15:00 23:00 07:00 15:00 23:00 Intake Total 755 ml 935 ml 840 ml Balance 755 ml 935 ml 840 ml Intake Oral 240 ml 420 ml 840 ml IV Total 515 ml 515 ml # Voids 3 4 3 # Bowel Movements 1 0 Result Diagram: 04/14/17 0645 04/14/17 0645 Objective Remarks GENERAL: in NAD CARDIOVASCULAR: Regular rate and rhythm without murmurs, gallops, or rubs. RESPIRATORY: Breath sounds equal bilaterally. No accessory muscle use. GASTROINTESTINAL: Abdomen soft, non-tender, nondistended. MUSCULOSKELETAL: No cyanosis, or edema. BACK: Nontender without obvious deformity. No CVA tenderness. Medications and IVs Current Medications Sodium Chloride (NS Flush) 2 ml UNSCH PRN IVF FLUSH AFTER USING IV ACCESS; Start 04/14/17 at 06:45; Stop 04/14/17 at 09:31; Status DC Iohexol (Omnipaque 350 Inj) 79 ml STK-MED ONCE IVCONTRAST Last administered on 04/14/17t 07:41; Start 04/14/17 at 07:41; Stop 04/14/17 at 07:46; Status DC Sodium Chloride (NS Flush) 2 ml UNSCH PRN IV FLUSH FLUSH AFTER USING IV ACCESS ; Start 04/14/17 at 09:30 Sodium Chloride (NS Flush) 2 ml BID IV FLUSH Last administered on 04/15/17 21 :03; Start 04/14/17 at 21:00 Acetaminophen (Tylenol) 650 mg Q4H PRN PO TEMP > 100.4 or pain 1-10; Start at 09:30 Ondansetron HCl (Zofran Inj) 4 mg Q6H PRN IVP NAUSEA OR VOMITING; Start at 09:30 Naloxone HCl (Narcan Inj) 0.4 mg UNSCH PRN IV PUSH SEE LABEL COMMENTS; Start 04/14/17 at 09:30 Senna/Docusate Sodium (Milly-Colace) 1 tab BID PO ; Start 04/14/17 at 21:00 Magnesium Hydroxide (Milk Of Magnesia Liq) 30 ml Q12H PRN PO Mild constipation ; Start 04/14/17 at 09:30 Sennosides (Senokot) 17.2 mg Q12H PRN PO Moderate constipation; Start at 09:30 Bisacodyl (Dulcolax Supp) 10 mg DAILY PRN RECTAL SEVERE CONSITIPATION; Start 04/14/17 at 09:30 Lactulose (Lactulose Liq) 30 ml DAILY PRN PO SEVERE CONSITIPATION; Start 04/14 at 09:30 Vancomycin HCl 1000 mg/Sodium Chloride 250 ml @ 250 mls/hr Q12H IV ; Start at 09:30; Stop 04/14/17 at 10:01; Status DC Pharmacy Profile Note 0 ml @ 0 mls/hr UNSCH OTHER ; Start 04/14/17 at 09:30 Vancomycin HCl 1500 mg/Sodium Chloride 515 ml @ 257.5 mls/ hr Q12H IV Last administered on 04/15/17 15:28; Start 04/14/17 at 11:00; Stop 04/15/17 at 16 :28; Status DC Miscellaneous Information SPECIFIC LAB TO BE ZULEYKA... ONCE ONCE .XX ; Start at 19:45; Stop 04/15/17 at 19:46; Status DC Ibuprofen (Motrin) 600 mg Q8H PRN PO pleuritic chest pain; Start 04/14/17 at 15:00 Vancomycin HCl 1500 mg/Sodium Chloride 515 ml @ 257.5 mls/ hr Q12H IV ; Start 04/15/17 at 20:00; Status Cancel Vancomycin HCl 1500 mg/Sodium Chloride 515 ml @ 257.5 mls/ hr Q12H IV Last administered on 04/16/17 05:50; Start 04/16/17 at 06:00 Miscellaneous Information SPECIFIC LAB TO BE ZULEYKA... ONCE ONCE .XX Last administered on 04/16/17 05:45; Start 04/16/17 at 05:45; Stop 04/16/17 at 05 :46; Status DC A/P Assessment and Plan This is a 26-year-old female who presented with bacteremia on last admission and left AMA twice Bacteremia Bacillus no anthracis -Culture from 03/29 2/4 positive, 03/31 1/4 positive and 04/02 1/4 positive. Labs reviewed from this admission relatively normal. -CT scan this chest suggests septic emboli concerning for right-sided endocarditis despite negative ERASTO. -Infectious disease consulted. Appreciate recommendations. -Continue with vancomycin pending final blood cultures. Pleuritic-type chest pain -Noncardiac. Per staff home therapy rn very unlikely that this is cardiac in nature. This is most likely secondary to septic emboli. -Continue with ibuprofen when necessary for pain. polysubstance abuse -UA + cocaine, marijuana, and benzoes. -education given and discourage use. tobacco use in room -education given. DVT prophylaxis SCDs and encourage ambulation. Discharge Planning Patient may need long-term IV antibiotics for endocarditis. Renu Rowan MD Apr 16, 2017 09:15
[2017-04-16 12:00] VITALS: BP 105/50; PULSE 75; RESP 18; TEMP 97.6; O2SAT 100
--- NOTE | 2017-04-16 13:09 | HHI.IDPN ---
Subjective Subjective Remarks Patient is a 26-year-old male, who was initially admitted at [facility] the first week of March with cellulitis in his left leg. He had blood cultures done at that time and he had multiple sets of blood culture that grew Bacillus. An echo was done at that time which did not show any evidence of any endocarditis. ERASTO was recommended, but the patient signed out AGAINST MEDICAL ADVICE. He came back to the emergency room on April 09, but he signed out AGAINST MEDICAL ADVICE soon after that. He had repeat blood cultures done on April 09 in the are negative. This time patient came back complaining of chest pain. It is pleuritic in nature. He denies any shortness of breath or any congestion or cough. He has not had any respiratory symptoms, GI or any urinary complaints. He states he had some fever several days ago. Patient has known IV drug use, and the last time he used it was about 2 weeks ago. Since admission he has not had any fever. His WBC is normal. Blood cultures are negative so far. CTA did not show any pulmonary embolism but it did show some scattered nodular lesion suggestive of inflammatory process. ERASTO was done and it did not show any obvious evidence of endocarditis. Notes reviewed Temps ok CP better BC are negative BC (+) Bacillus 03/29-04/02 BC 04/[address] chest C/W septic emboli to the lung Antibiotics Vancomycin Current Medications Medications (Trade) Dose Ordered Sig/Mikal Route Start Time Stop Time Status Last Admin (NS Flush) 2 ml UNSCH PRN IV FLUSH 04/14/17 09:30 (NS Flush) 2 ml BID IV FLUSH 04/14/17 21:00 04/15/17 21:03 (Tylenol) 650 mg Q4H PRN PO 04/14/17 09:30 (Zofran Inj) 4 mg Q6H PRN IVP 04/14/17 09:30 (Narcan Inj) 0.4 mg UNSCH PRN IV PUSH 04/14/17 09:30 (Milly-Colace) 1 tab BID PO 04/14/17 21:00 (Milk Of Magnesia Liq) 30 ml Q12H PRN PO 04/14/17 09:30 (Senokot) 17.2 mg Q12H PRN PO 04/14/17 09:30 (Dulcolax Supp) 10 mg DAILY PRN RECTAL 04/14/17 09:30 (Lactulose Liq) 30 ml DAILY PRN PO 04/14/17 09:30 Pharmacy Profile Note 0 ml @ 0 mls/hr UNSCH OTHER 04/14/17 09:30 (Motrin) 600 mg Q8H PRN PO 04/14/17 15:00 Vancomycin HCl 1500 mg/Sodium Chloride 515 ml @ 257.5 mls/ hr Q8H IV 04/16/17 14:00 Miscellaneous Information SPECIFIC LAB TO BE ZULEYKA... ONCE ONCE .XX 04/17/17 05:45 04/17/17 05:46 Lines PIV Past Medical History Skin cancer Past Surgical History Some kind of jaw surgery related to trauma Allergies: Coded Allergies: No Known Allergies (Verified Allergy, Unknown, 04/14/17) Objective . Vital Signs Date Time Temp Pulse Resp B/P (MAP) Pulse Ox O2 Delivery O2 Flow Rate FiO2 04/16/17 08:00 97.7 77 18 105/55 (72) 100 04/16/17 08:00 96 Room Air 04/16/17 04:25 97.8 67 16 105/60 (75) 99 04/16/17 04:00 Room Air 04/16/17 00:00 Room Air 04/15/17 23:47 97.7 62 16 119/60 (79) 100 04/15/17 20:27 97.5 66 16 105/52 (69) 99 04/15/17 20:00 Room Air 04/15/17 16:06 98.6 69 18 101/60 (74) 100 04/16/17 04/16/17 04/17/17 15:00 23:00 07:00 Intake Total 515 ml Balance 515 ml IV Total 515 ml . Microbiology Date/Time Source Procedure Growth Status 04/14/17 06:45 Blood Peripheral Aerobic Blood Culture - Preliminary NO GROWTH IN 2 DAYS Resulted 04/14/17 06:45 Blood Peripheral Anaerobic Blood Culture - Preliminary NO GROWTH IN 2 DAYS Resulted 04/14/17 06:00 Blood Peripheral Aerobic Blood Culture - Preliminary NO GROWTH IN 2 DAYS Resulted 04/14/17 06:00 Blood Peripheral Anaerobic Blood Culture - Preliminary NO GROWTH IN 2 DAYS Resulted Imaging Last Impressions Chest X-Ray 04/14/17 0640 Signed Impressions: Service Date/Time: Friday, April 14, 2017 06:47 - CONCLUSION: The lungs are clear. Rakesh Coronado MD CT Angiography 04/14/17 0640 Signed Impressions: Service Date/Time: Friday, April 14, 2017 07:43 - CONCLUSION: 1. No pulmonary embolus. 2. Subcentimeter pulmonary nodules as above, presumably infectious or inflammatory. 6 month followup noncontrast chest CT is recommended. 3. Apparent hepatosplenomegaly, nonspecific. 4. Nonacute right first rib fracture. Harpal Bueno MD Physical Exam GENERAL: awake and alert, not in respiratory distress. SKIN: Warm and dry. Has scattered papular rash in his face and both UE and LE HEAD: Atraumatic. Normocephalic. No temporal wasting, or tenderness. EYES: Faxon conjunctiva. No petechia or hemorrhage. Pupils equal, round and reactive to light. Extraocular movements full and intact. No scleral icterus. No injection or drainage. EARS, NOSE AND THROAT: Nose without bleeding or purulent nasal discharge. No sinus tenderness. Mucous membranes pink and moist. No oral lesions noted. No exudate. No oral thrush. NECK: Trachea midline. Supple and not tender, no meningeal signs CARDIOVASCULAR: Regular rate and rhythm. No murmurs, rubs or gallops heard RESPIRATORY: Clear to auscultation. Breath sounds equal bilaterally. No rales , wheezing or rhonchi ABDOMEN: Soft, non-tender, nondistended. Bowel sounds present and normoactive. No guarding. No rebound. No organomegaly. EXTREMITIES: No clubbing, cyanosis, or edema. No joint effusion, has good ROM. No calf tenderness. Well perfused and warm. NEUROLOGICAL: Non-focal PSYCHIATRIC: Normal affect, calm and cooperative. LINE: No evidence of infection Assessment & Plan Remarks IMPRESSION Previous episode of Bacillus bacteremia, BC (+) Nov 3-7 - ERASTO negative - CTA however showing nodular lesions very suggestive of septic emboli - With his clinical picture and results of work-up, this is very suggestive of R sided endocarditis CP, pleuritic due to septic emboli to the lung Known IVDU RECOMMENDATION Continue IV Vanco D/W Dr Maliha Rowan - if patient has safe place to stay, and consistent transporation to outpatient infusion clinic, we could start looking at D/C to get Rx at outpatient infusion clinic - will use IV Telavancin 700 mg daily x 28 days - labs while on Abx: CBC creatinine, LFT Patient will need to sign form for PICC, and that he is responsible if he uses PICC outside the intended use which is for his IV Abx, and if he gets complications as a result of his using it for his IVDU Connie Dale MD Apr 16, 2017 13:09
[2017-04-16] MEDS: VANCOMYCIN 1,500 MG/NS 500 ML IV SCH ×4 (14:11→21:52)
[2017-04-16 16:00] VITALS: BP_SYST 113; BP_SYST 114; BP_DIAS 53; BP_DIAS 66; PULSE 73; RESP 18; RESP 23; TEMP 97.8; TEMP 98; O2SAT 100; O2SAT 87
--- NOTE | 2017-04-16 19:03 | HHI.PR ---
Subjective Remarks NOT SEEN Objective Vitals Vital Signs Date Time Temp Pulse Resp B/P (MAP) Pulse Ox O2 Delivery O2 Flow Rate FiO2 04/16/17 16:00 97.8 73 18 114/66 (82) 100 04/16/17 12:00 97.6 75 18 105/50 (68) 100 04/16/17 08:00 97.7 77 18 105/55 (72) 100 04/16/17 08:00 96 Room Air 04/16/17 04:25 97.8 67 16 105/60 (75) 99 04/16/17 04:00 Room Air 04/16/17 00:00 Room Air 04/15/17 23:47 97.7 62 16 119/60 (79) 100 04/15/17 20:27 97.5 66 16 105/52 (69) 99 04/15/17 20:00 Room Air I/O 04/15/17 04/15/17 04/15/17 04/16/17 04/16/17 04/16/17 07:00 15:00 23:00 07:00 15:00 23:00 Intake Total 755 ml 935 ml 840 ml 515 ml Balance 755 ml 935 ml 840 ml 515 ml Intake Oral 240 ml 420 ml 840 ml IV Total 515 ml 515 ml 515 ml # Voids 3 4 3 # Bowel Movements 1 0 Result Diagram: 04/14/1745 04/14/1745 Imaging Last Impressions Chest X-Ray 04/14/17639 Signed Impressions: Service Date/Time: Friday, April 14, 2017 06:47 - CONCLUSION: The lungs are clear. Raeksh Coronado MD CT Angiography 04/14/17639 Signed Impressions: Service Date/Time: Friday, April 14, 2017 07:43 - CONCLUSION: 1. No pulmonary embolus. 2. Subcentimeter pulmonary nodules as above, presumably infectious or inflammatory. 6 month followup noncontrast chest CT is recommended. 3. Apparent hepatosplenomegaly, nonspecific. 4. Nonacute right first rib fracture. Harpal Bueno MD Objective Remarks GENERAL: in NAD CARDIOVASCULAR: Regular rate and rhythm without murmurs, gallops, or rubs. RESPIRATORY: Breath sounds equal bilaterally. No accessory muscle use. GASTROINTESTINAL: Abdomen soft, non-tender, nondistended. MUSCULOSKELETAL: No cyanosis, or edema. BACK: Nontender without obvious deformity. No CVA tenderness. Procedures ERASTO A/P Problem List: (1) Endocarditis ICD Code: I38 - Endocarditis, valve unspecified Assessment and Plan This is a 26-year-old female who presented with bacteremia on last admission and left AMA twice Bacteremia Bacillus no anthracis -Culture from 03/29 2/ positive, 03/31/ positive and 04/02/ positive. Labs reviewed from this admission relatively normal. -CT scan this chest suggests septic emboli concerning for right-sided endocarditis despite negative ERASTO. -Infectious disease consulted. Appreciate recommendations. -Continue with vancomycin pending final blood cultures. Pleuritic-type chest pain -Noncardiac. Per varitype operator very unlikely that this is cardiac in nature. This is most likely secondary to septic emboli. -Continue with ibuprofen when necessary for pain. polysubstance abuse -UA + cocaine, marijuana, and benzoes. -education given and discourage use. tobacco use in room -education given. DVT prophylaxis SCDs and encourage ambulation. Discharge Planning Patient may need long-term IV antibiotics for endocarditis. Stephen Benitez MD Apr 16, 2017 19:03
[2017-04-16 20:08] VITALS: BP 118/86; PULSE 121; RESP 18; TEMP 98; O2SAT 96
[2017-04-16] MEDS: SODIUM CHLORIDE 0.9% FLUSH 10 ML FLUSH IV FLUSH SCH (21:00)
[2017-04-16 23:42] VITALS: BP 120/65; PULSE 114; RESP 18; TEMP 98.5; O2SAT 97
[2017-04-17 04:18] VITALS: BP 119/67; PULSE 85; RESP 16; TEMP 97.8; O2SAT 99
[2017-04-17] MEDS: VANCOMYCIN 1,500 MG/NS 500 ML IV SCH ×4 (05:26→17:30)
[2017-04-17] MEDS ORDERED: PHARMACY ORDERED LAB ONE (05:45)
[2017-04-17 08:00] VITALS: BP 118/74; PULSE 92; RESP 20; TEMP 98; O2SAT 97
[2017-04-17] MEDS: DOCUSATE SODIUM 50 MG/SENNA 8.6 MG TAB PO SCH ×2 (09:00→20:59)
--- NOTE | 2017-04-17 10:27 | HHI.PR ---
Subjective Remarks Follow-up suspected endocarditis. Patient has no complaints he wants to go home. Discussed with RN, suspicious ongoing illegal drug use in house. Patient denies. Discussed with RN, screen VISITORS and obtain drug screen Objective Vitals Vital Signs Date Time Temp Pulse Resp B/P (MAP) Pulse Ox O2 Delivery O2 Flow Rate FiO2 04/17/17 08:00 98.0 92 20 118/74 (89) 97 04/17/17 04:18 97.8 85 16 119/67 (84) 99 04/17/17 00:00 Room Air 04/16/17 23:42 98.5 114 18 120/65 (83) 97 04/16/17 20:08 98.0 121 18 118/86 (97) 96 04/16/17 20:00 Room Air 04/16/17 16:00 97.8 73 18 114/66 (82) 100 04/16/17 12:00 97.6 75 18 105/50 (68) 100 I/O 04/16/17 04/16/17 04/16/17 04/17/17 04/17/17 04/17/17 07:00 15:00 23:00 07:00 15:00 23:00 Intake Total 840 ml 515 ml 515 ml 720 ml 100 ml Balance 840 ml 515 ml 515 ml 720 ml 100 ml Intake Oral 840 ml 720 ml IV Total 515 ml 515 ml 100 ml # Voids 3 3 # Bowel Movements 0 1 Result Diagram: 04/14/1745 04/14/17 0645 Imaging Last Impressions Chest X-Ray 04/14/17639 Signed Impressions: Service Date/Time: Friday, April 14, 2017 06:47 - CONCLUSION: The lungs are clear. Rakesh Coronado MD CT Angiography 04/14/17 0640 Signed Impressions: Service Date/Time: Friday, April 14, 2017 07:43 - CONCLUSION: 1. No pulmonary embolus. 2. Subcentimeter pulmonary nodules as above, presumably infectious or inflammatory. 6 month followup noncontrast chest CT is recommended. 3. Apparent hepatosplenomegaly, nonspecific. 4. Nonacute right first rib fracture. Harpal Bueno MD Objective Remarks GENERAL: in NAD CARDIOVASCULAR: Regular rate and rhythm without murmurs, gallops, or rubs. RESPIRATORY: Breath sounds equal bilaterally. No accessory muscle use. GASTROINTESTINAL: Abdomen soft, non-tender, nondistended. MUSCULOSKELETAL: No cyanosis, or edema. BACK: Nontender without obvious deformity. No CVA tenderness. Alert and oriented nonfocal Procedures ERASTO A/P Problem List: (1) Endocarditis ICD Code: I38 - Endocarditis, valve unspecified Assessment and Plan This is a 26-year-old female who presented with bacteremia on last admission and left AMA twice Bacteremia 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 Labs reviewed from this admission relatively normal. -CT scan this chest suggests septic emboli concerning for right-sided endocarditis despite negative ERASTO. -Infectious disease consulted. Appreciate recommendations - if patient has safe place to stay, and consistent transportation to outpatient infusion clinic , we could start looking at D/C to get Rx at outpatient infusion clinic - will use IV Telavancin 700 mg daily x 28 days - labs while on Abx: CBC creatinine, LFT Patient will need to sign form for PICC, and that he is responsible if he uses PICC outside the intended use which is for his IV Abx, and if he gets complications as a result of his using it for his IVDU. .-Continue with vancomycin pending final blood cultures. Pleuritic-type chest pain -Noncardiac. Per supplies packer very unlikely that this is cardiac in nature. This is most likely secondary to septic emboli. -Continue with ibuprofen when necessary for pain. polysubstance abuse -UA + cocaine, marijuana, and benzoes. -education given and discourage use. tobacco use in room -education given. DVT prophylaxis SCDs and encourage ambulation. Discharge Planning Patient may need long-term IV antibiotics for endocarditis. Stephen Benitez MD Apr 17, 2017 10:27
[2017-04-17 12:00] VITALS: BP 119/68; PULSE 87; RESP 20; TEMP 97.7; O2SAT 100
[2017-04-17 16:00] VITALS: BP 118/61; PULSE 84; RESP 20; TEMP 97.8; O2SAT 100
[2017-04-17] MEDS: SODIUM CHLORIDE 0.9% FLUSH 10 ML FLUSH IV FLUSH SCH ×2 (17:30→20:59)
[2017-04-17 20:48] VITALS: BP 118/67; PULSE 81; RESP 16; TEMP 98; O2SAT 100
[2017-04-18 00:08] VITALS: BP 119/54; PULSE 65; RESP 16; TEMP 97.3; O2SAT 100
[2017-04-18 04:16] VITALS: BP 102/61; PULSE 66; RESP 16; TEMP 98.3; O2SAT 99
[2017-04-18] MEDS ORDERED: PHARMACY ORDERED LAB ONE (05:45)
[2017-04-18] MEDS: VANCOMYCIN 1,500 MG/NS 500 ML IV SCH ×4 (05:55→17:25)
[2017-04-18 08:00] VITALS: BP 101/59; PULSE 67; RESP 20; TEMP 97.8; O2SAT 98
[2017-04-18] MEDS: SODIUM CHLORIDE 0.9% FLUSH 10 ML FLUSH IV FLUSH SCH ×2 (08:42→19:56)
[2017-04-18] MEDS: DOCUSATE SODIUM 50 MG/SENNA 8.6 MG TAB PO SCH ×2 (08:42→19:56)
[2017-04-18 12:00] VITALS: BP 109/59; PULSE 88; RESP 20; TEMP 98.2; O2SAT 99
--- NOTE | 2017-04-18 14:05 | HHI.PR ---
Subjective Remarks Follow-up endocarditis. Patient has no complaints denies chest pain and shortness of breath. Discussed with RN Objective Vitals Vital Signs Date Time Temp Pulse Resp B/P (MAP) Pulse Ox O2 Delivery O2 Flow Rate FiO2 04/18/17 12:00 98.2 88 20 109/59 (76) 99 04/18/17 08:00 97.8 67 20 101/59 (73) 98 04/18/17 08:00 Room Air 04/18/17 04:16 98.3 66 16 102/61 (75) 99 04/18/17 04:00 Room Air 04/18/17 00:08 97.3 65 16 119/54 (75) 100 04/18/17 00:00 Room Air 04/17/17 20:48 98.0 81 16 118/67 (84) 100 04/17/17 20:00 Room Air 04/17/17 16:00 97.8 84 20 118/61 (80) 100 I/O 04/17/17 04/17/17 04/17/17 04/18/17 04/18/17 04/18/17 07:00 15:00 23:00 07:00 15:00 23:00 Intake Total 720 ml 100 ml 960 ml 480 ml Output Total 900 ml Balance 720 ml 100 ml 960 ml -420 ml Intake Oral 720 ml 960 ml 480 ml IV Total 100 ml Output Urine Total 900 ml # Voids 3 1 # Bowel Movements 1 1 0 Result Diagram: 04/14/17 0645 04/18/17 0530 Imaging Last Impressions Chest X-Ray 04/14/17 0640 Signed Impressions: Service Date/Time: Friday, April 14, 2017 06:47 - CONCLUSION: The lungs are clear. Rakesh Coronado MD CT Angiography 04/14/17 0640 Signed Impressions: Service Date/Time: Friday, April 14, 2017 07:43 - CONCLUSION: 1. No pulmonary embolus. 2. Subcentimeter pulmonary nodules as above, presumably infectious or inflammatory. 6 month followup noncontrast chest CT is recommended. 3. Apparent hepatosplenomegaly, nonspecific. 4. Nonacute right first rib fracture. Harpal Bueno MD Objective Remarks GENERAL: in NAD CARDIOVASCULAR: Regular rate and rhythm without murmurs, gallops, or rubs. RESPIRATORY: Breath sounds equal bilaterally. No accessory muscle use. GASTROINTESTINAL: Abdomen soft, non-tender, nondistended. MUSCULOSKELETAL: No cyanosis, or edema. BACK: Nontender without obvious deformity. No CVA tenderness. Alert and oriented nonfocal No significant change in PE from previous Procedures ERASTO A/P Problem List: (1) Endocarditis ICD Code: I38 - Endocarditis, valve unspecified Assessment and Plan This is a 26-year-old female who presented with bacteremia on last admission and left AMA twice Bacteremia 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 Labs reviewed from this admission relatively normal. -CT scan this chest suggests septic emboli concerning for right-sided endocarditis despite negative ERASTO. -Infectious disease consulted. Appreciate recommendations - if patient has safe place to stay, and consistent transportation to outpatient infusion clinic , we could start looking at D/C to get Rx at outpatient infusion clinic - will use IV Telavancin 700 mg daily x 28 days - labs while on Abx: CBC creatinine, LFT Patient will need to sign form for PICC, and that he is responsible if he uses PICC outside the intended use which is for his IV Abx, and if he gets complications as a result of his using it for his IVDU. .-Continue with vancomycin pending final blood cultures negative to date. Pleuritic-type chest pain -Noncardiac. Per media technician very unlikely that this is cardiac in nature. This is most likely secondary to septic emboli. -Continue with ibuprofen when necessary for pain. polysubstance abuse -UDs + cocaine, marijuana, and benzos. Rpt UDs with amphetamines -education given and discourage use. tobacco use in room -education given. DVT prophylaxis SCDs and encourage ambulation. Discharge Planning Patient may need long-term IV antibiotics for endocarditis. Stephen Benitez MD Apr 18, 2017 14:05
[2017-04-18 16:00] VITALS: BP 117/63; PULSE 88; RESP 20; TEMP 97.1; O2SAT 100
[2017-04-18 20:00] VITALS: BP 129/69; PULSE 83; RESP 20; TEMP 98.1; O2SAT 100
[2017-04-18] MEDS: IBUPROFEN 600 MG TAB PO PRN (23:39)
[2017-04-19] VITALS: BP 121/64; PULSE 91; RESP 20; TEMP 98.1; O2SAT 99
[2017-04-19 04:00] VITALS: BP 129/72; PULSE 67; RESP 18; TEMP 98.6; O2SAT 99
[2017-04-19] MEDS ORDERED: PHARMACY ORDERED LAB ONE (05:45)
[2017-04-19 08:06] VITALS: BP 135/74; PULSE 61; RESP 16; TEMP 97.7; O2SAT 100
[2017-04-19] MEDS: SODIUM CHLORIDE 0.9% FLUSH 10 ML FLUSH IV FLUSH SCH ×2 (09:00→20:07)
[2017-04-19] MEDS: DOCUSATE SODIUM 50 MG/SENNA 8.6 MG TAB PO SCH ×2 (09:00→20:06)
[2017-04-19] MEDS: VANCOMYCIN 1,500 MG/NS 500 ML IV SCH ×2 (10:16)
[2017-04-19] MEDS: ACETAMINOPHEN 325 MG TAB PO PRN ×2 (11:46→20:06)
[2017-04-19 12:06] VITALS: BP 134/77; PULSE 79; RESP 16; TEMP 98.5; O2SAT 96
--- NOTE | 2017-04-19 12:55 | HHI.PR ---
Subjective Remarks Follow-up endocarditis. Patient complaining of chipped tooth left upper last night and developed swelling and pain. Objective Vitals Vital Signs Date Time Temp Pulse Resp B/P (MAP) Pulse Ox O2 Delivery O2 Flow Rate FiO2 04/19/17 08:06 97.7 61 16 135/74 (94) 100 04/19/17 08:00 Room Air 04/19/17 04:00 98.6 67 18 129/72 (91) 99 04/19/17 00:00 98.1 91 20 121/64 (83) 99 04/18/17 20:00 Room Air 04/18/17 20:00 98.1 83 20 129/69 (89) 100 04/18/17 16:00 97.1 88 20 117/63 (81) 100 I/O 04/18/17 04/18/17 04/18/17 04/19/17 04/19/17 04/19/17 07:00 15:00 23:00 07:00 15:00 23:00 Intake Total 480 ml 720 ml 600 ml Output Total 900 ml Balance -420 ml 720 ml 600 ml Intake Oral 480 ml 720 ml 600 ml Output Urine Total 900 ml # Voids 3 3 # Bowel Movements 0 1 Result Diagram: 04/19/17 0645 Imaging Last Impressions Chest X-Ray 04/14/17639 Signed Impressions: Service Date/Time: Friday, April 14, 2017 06:47 - CONCLUSION: The lungs are clear. Rakesh Coronado MD CT Angiography 04/14/1740 Signed Impressions: Service Date/Time: Friday, April 14, 2017 07:43 - CONCLUSION: 1. No pulmonary embolus. 2. Subcentimeter pulmonary nodules as above, presumably infectious or inflammatory. 6 month followup noncontrast chest CT is recommended. 3. Apparent hepatosplenomegaly, nonspecific. 4. Nonacute right first rib fracture. Harpal Bueno MD Objective Remarks GENERAL: in NAD HEENT: tender left upper tooth swelling or discharge. left cheek is swollen and tender CARDIOVASCULAR: Regular rate and rhythm without murmurs, gallops, or rubs. RESPIRATORY: Breath sounds equal bilaterally. No accessory muscle use. GASTROINTESTINAL: Abdomen soft, non-tender, nondistended. MUSCULOSKELETAL: No cyanosis, or edema. BACK: Nontender without obvious deformity. No CVA tenderness. Alert and oriented nonfocal Procedures ERASTO A/P Problem List: (1) Endocarditis ICD Code: I38 - Endocarditis, valve unspecified Assessment and Plan This is a 26-year-old female who presented with bacteremia on last admission and left AMA twice Bacteremia Bacillus no anthracis -Culture from 03/29 2/ positive, 03/31/ positive and 04/02 1/ positive. Labs reviewed from this admission relatively normal. -CT scan this chest suggests septic emboli concerning for right-sided endocarditis despite negative ERASTO. -Infectious disease consulted. Appreciate recommendations - if patient has safe place to stay, and consistent transportation to outpatient infusion clinic , we could start looking at D/C to get Rx at outpatient infusion clinic - will use IV Telavancin 700 mg daily x 28 days - labs while on Abx: CBC creatinine, LFT Patient will need to sign form for PICC, and that he is responsible if he uses PICC outside the intended use which is for his IV Abx, and if he gets complications as a result of his using it for his IVDU. Suspected ongoing legal drug use while in house. His case has been escalated to legal team for advise .-Continue with vancomycin pending final blood cultures negative to date. Pleuritic-type chest pain -Noncardiac. Per rail operator very unlikely that this is cardiac in nature. This is most likely secondary to septic emboli. -Continue with ibuprofen when necessary for pain. polysubstance abuse -UDs + cocaine, marijuana, and benzos. Rpt UDs with amphetamines -education given and discourage use. tobacco use in room -education given. Dental infection. Start Pen-Vee K and scheduled NSAIDs with GI prophylaxis. Warm compresses. Needs outpatient follow-up with dental DVT prophylaxis SCDs and encourage ambulation. Discharge Planning Patient may need long-term IV antibiotics for endocarditis. Stepehn Benitez MD Apr 19, 2017 12:55
[2017-04-19] MEDS: FAMOTIDINE 20 MG TAB PO SCH ×2 (13:53→20:06)
[2017-04-19] MEDS: PENICILLIN V POTASSIUM 500 MG TAB PO SCH ×3 (13:53→23:38)
[2017-04-19] MEDS: IBUPROFEN 600 MG TAB PO SCH ×3 (13:53→23:39)
[2017-04-19 16:06] VITALS: BP 117/72; PULSE 73; RESP 16; TEMP 98.5; O2SAT 100
[2017-04-19] MEDS: VANCOMYCIN INJ 1,250 MG in SODIUM CHLOR 0.9% 250 ML INJ 250 ML IV SCH (17:19)
[2017-04-19 20:00] VITALS: BP 148/83; PULSE 110; RESP 19; TEMP 98; O2SAT 100
[2017-04-20] VITALS: BP 142/96; PULSE 79; RESP 19; TEMP 97.9; O2SAT 100
[2017-04-20] MEDS: ACETAMINOPHEN 325 MG TAB PO PRN (00:15)
[2017-04-20] MEDS: VANCOMYCIN INJ 1,250 MG in SODIUM CHLOR 0.9% 250 ML INJ 250 ML IV SCH ×3 (02:31→19:48)
[2017-04-20 04:00] VITALS: BP 123/70; PULSE 73; RESP 18; TEMP 98.3; O2SAT 100
[2017-04-20] MEDS: PENICILLIN V POTASSIUM 500 MG TAB PO SCH ×4 (05:38→23:57)
[2017-04-20] MEDS: IBUPROFEN 600 MG TAB PO SCH ×4 (05:38→23:57)
[2017-04-20 08:06] VITALS: BP 129/73; PULSE 67; RESP 16; TEMP 98.1; O2SAT 98
[2017-04-20] MEDS: FAMOTIDINE 20 MG TAB PO SCH ×2 (09:27→21:32)
[2017-04-20] MEDS: DOCUSATE SODIUM 50 MG/SENNA 8.6 MG TAB PO SCH ×2 (09:27→21:32)
[2017-04-20] MEDS: SODIUM CHLORIDE 0.9% FLUSH 10 ML FLUSH IV FLUSH SCH ×2 (09:29→21:32)
--- NOTE | 2017-04-20 09:39 | HHI.PR ---
Subjective Remarks Follow-up dental infection. Improving left facial swelling and dental pain. Discussed with RN Objective Vitals Vital Signs Date Time Temp Pulse Resp B/P (MAP) Pulse Ox O2 Delivery O2 Flow Rate FiO2 04/20/17 08:06 98.1 67 16 129/73 (91) 98 04/20/17 04:00 98.3 73 18 123/70 (87) 100 04/20/17 00:00 97.9 79 19 142/96 (111) 100 04/19/17 20:00 Room Air 04/19/17 20:00 98.0 110 19 148/83 (104) 100 04/19/17 16:06 98.5 73 16 117/72 (87) 100 04/19/17 12:06 98.5 79 16 134/77 (96) 96 I/O 04/19/17 04/19/17 04/19/17 04/20/17 04/20/17 04/20/17 07:00 15:00 23:00 07:00 15:00 23:00 Intake Total 600 ml 520 ml 1212.5 ml Balance 600 ml 520 ml 1212.5 ml Intake Oral 600 ml 520 ml 950 ml IV Total 262.5 ml # Voids 3 7 4 # Bowel Movements 1 1 Result Diagram: 04/19/17 0645 Imaging Last Impressions Chest X-Ray 04/14/17639 Signed Impressions: Service Date/Time: Friday, April 14, 2017 06:47 - CONCLUSION: The lungs are clear. Rakesh Coronado MD CT Angiography 04/14/17639 Signed Impressions: Service Date/Time: Friday, April 14, 2017 07:43 - CONCLUSION: 1. No pulmonary embolus. 2. Subcentimeter pulmonary nodules as above, presumably infectious or inflammatory. 6 month followup noncontrast chest CT is recommended. 3. Apparent hepatosplenomegaly, nonspecific. 4. Nonacute right first rib fracture. Harpal Bueno MD Objective Remarks GENERAL: in NAD HEENT: tender left upper tooth swelling or discharge. left cheek is less swollen and tender CARDIOVASCULAR: Regular rate and rhythm without murmurs, gallops, or rubs. RESPIRATORY: Breath sounds equal bilaterally. No accessory muscle use. GASTROINTESTINAL: Abdomen soft, non-tender, nondistended. MUSCULOSKELETAL: No cyanosis, or edema. BACK: Nontender without obvious deformity. No CVA tenderness. Alert and oriented nonfocal Procedures ERASTO A/P Problem List: (1) Endocarditis ICD Code: I38 - Endocarditis, valve unspecified Assessment and Plan This is a 26-year-old female who presented with bacteremia on last admission and left AMA twice Bacteremia Bacillus no anthracis -Culture from 03/29 2/ positive, 03/31/ positive and 04/02/ positive. Labs reviewed from this admission relatively normal. -CT scan this chest suggests septic emboli concerning for right-sided endocarditis despite negative ERASTO. -Infectious disease consulted. Appreciate recommendations - if patient has safe place to stay, and consistent transportation to outpatient infusion clinic , we could start looking at D/C to get Rx at outpatient infusion clinic - will use IV Telavancin 700 mg daily x 28 days - labs while on Abx: CBC creatinine, LFT Patient will need to sign form for PICC, and that he is responsible if he uses PICC outside the intended use which is for his IV Abx, and if he gets complications as a result of his using it for his IVDU. Suspected ongoing legal drug use while in house. His case has been escalated to legal team for advise .-Continue with vancomycin pending final blood cultures negative to date. Pleuritic-type chest pain -Noncardiac. 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 This is most likely secondary to septic emboli. -Continue with ibuprofen when necessary for pain. polysubstance abuse -UDs + cocaine, marijuana, and benzos. Rpt UDs with amphetamines -education given and discourage use. tobacco use in room -education given. Dental infection. Continue Pen-Vee K and scheduled NSAIDs with GI prophylaxis. Warm compresses. Needs outpatient follow-up with dental DVT prophylaxis SCDs and encourage ambulation. Discharge Planning Patient may need long-term IV antibiotics for endocarditis. Stephen Benitez MD Apr 20, 2017 09:39
[2017-04-20 12:06] VITALS: BP 151/86; PULSE 88; RESP 16; TEMP 98.6; O2SAT 97
[2017-04-20 16:06] VITALS: BP 133/58; PULSE 106; RESP 16; TEMP 98.7; O2SAT 100
[2017-04-20] MEDS ORDERED: PHARMACY ORDERED LAB ONE (17:45)
[2017-04-20 20:00] VITALS: BP 146/89; PULSE 91; RESP 16; TEMP 98.4; O2SAT 99
[2017-04-21] VITALS: BP 134/75; PULSE 108; RESP 17; TEMP 98.7; O2SAT 100
[2017-04-21] MEDS: VANCOMYCIN INJ 1,250 MG in SODIUM CHLOR 0.9% 250 ML INJ 250 ML IV SCH ×4 (02:33→23:36)
[2017-04-21 04:00] VITALS: BP 111/66; PULSE 70; RESP 17; TEMP 98.2; O2SAT 100
[2017-04-21] MEDS: IBUPROFEN 600 MG TAB PO SCH ×2 (05:28→11:09)
[2017-04-21] MEDS: PENICILLIN V POTASSIUM 500 MG TAB PO SCH ×4 (05:28→23:35)
[2017-04-21 08:06] VITALS: BP 116/62; PULSE 64; RESP 16; TEMP 98.2; O2SAT 98
[2017-04-21] MEDS: ACETAMINOPHEN 325 MG TAB PO PRN ×3 (09:20→23:36)
[2017-04-21] MEDS: FAMOTIDINE 20 MG TAB PO SCH ×2 (09:20→23:35)
[2017-04-21] MEDS: DOCUSATE SODIUM 50 MG/SENNA 8.6 MG TAB PO SCH ×2 (09:20→23:35)
[2017-04-21] MEDS: SODIUM CHLORIDE 0.9% FLUSH 10 ML FLUSH IV FLUSH SCH ×2 (09:21→21:00)
[2017-04-21] MEDS ORDERED: IOHEXOL 350 MG/ML 10 ML VIAL (for RAD DIAG) IVCONTRAST ONE (09:38)
--- NOTE | 2017-04-21 10:52 | HHI.PR ---
Subjective Remarks Follow-up left facial swelling. Still with significant swelling and pain of the left face. Also reports of nasty taste. Discussed with RN, obtain facial CT to rule out abscess Objective Vitals Vital Signs Date Time Temp Pulse Resp B/P (MAP) Pulse Ox O2 Delivery O2 Flow Rate FiO2 04/21/17 09:47 Room Air 04/21/17 08:06 98.2 64 16 116/62 (80) 98 04/21/17 04:00 98.2 70 17 111/66 (81) 100 04/21/17 00:00 98.7 108 17 134/75 (94) 100 04/20/17 21:32 Room Air 04/20/17 20:00 98.4 91 16 146/89 (108) 99 04/20/17 16:06 98.7 106 16 133/58 (83) 100 04/20/17 12:06 98.6 88 16 151/86 (107) 97 I/O 04/20/17 04/20/17 04/20/17 04/21/17 04/21/17 04/21/17 07:00 15:00 23:00 07:00 15:00 23:00 Intake Total 1212.5 ml 262 ml 420 ml 480 ml Balance 1212.5 ml 262 ml 420 ml 480 ml Intake Oral 950 ml 420 ml 480 ml IV Total 262.5 ml 262 ml # Voids 4 6 3 # Bowel Movements 1 1 0 Result Diagram: 04/20/17 0606 Objective Remarks GENERAL: in NAD HEENT: tender left upper molars no swelling or discharge. left cheek is still swollen and tender CARDIOVASCULAR: Regular rate and rhythm without murmurs, gallops, or rubs. RESPIRATORY: Breath sounds equal bilaterally. No accessory muscle use. GASTROINTESTINAL: Abdomen soft, non-tender, nondistended. MUSCULOSKELETAL: No cyanosis, or edema. BACK: Nontender without obvious deformity. No CVA tenderness. Alert and oriented nonfocal Procedures ERASTO A/P Problem List: (1) Endocarditis ICD Code: I38 - Endocarditis, valve unspecified Assessment and Plan This is a 26-year-old female who presented with bacteremia on last admission and left AMA twice Bacteremia Bacillus no anthracis -Culture from 03/29 2/4 positive, 03/31 1/4 positive and 04/02 05/30 positive. Labs reviewed from this admission relatively normal. -CT scan this chest suggests septic emboli concerning for right-sided endocarditis despite negative ERASTO. -Infectious disease consulted. Appreciate recommendations - if patient has safe place to stay, and consistent transportation to outpatient infusion clinic , we could start looking at D/C to get Rx at outpatient infusion clinic - will use IV Telavancin 700 mg daily x 28 days - labs while on Abx: CBC creatinine, LFT Patient will need to sign form for PICC, and that he is responsible if he uses PICC outside the intended use which is for his IV Abx, and if he gets complications as a result of his using it for his IVDU. Suspected ongoing illegal drug use while in house. His case has been escalated to legal team for advise .-Continue with vancomycin pending final blood cultures negative to date. Pleuritic-type chest pain -Noncardiac. 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 This is most likely secondary to septic emboli. -Continue with ibuprofen when necessary for pain. polysubstance abuse -UDs + cocaine, marijuana, and benzos. Rpt UDs with amphetamines -education given and discourage use. tobacco use in room -education given. Dental infection. Continue Pen-Vee K and scheduled NSAIDs with GI prophylaxis. Warm compresses. Needs outpatient follow-up with dental. Facial CT to rule out abscess DVT prophylaxis SCDs and encourage ambulation. Discharge Planning Patient may need long-term IV antibiotics for endocarditis. Stephen Benitez MD Apr 21, 2017 10:52
--- NOTE | 2017-04-21 11:24 | RADRPT ---
EXAM DATE/TIME: 04/21/2017 09:23 [facility] COMPARISON: No previous studies available for comparison. INDICATIONS : Left side facial swelling, evaluate for abscess. IV CONTRAST: 65 cc Omnipaque 350 (iohexol) IV RADIATION DOSE: 36.57 CTDIvol (mGy) MEDICAL HISTORY : None SURGICAL HISTORY : jaw surgery, tongue surgery ENCOUNTER: Initial ACUITY: 1 day PAIN SCALE: 4/10 LOCATION: facial TECHNIQUE: Volumetric scanning of the facial bones was performed. Using automated exposure control and adjustme nt of the mA and/or kV according to patient size, radiation dose was kept as low as reasonably achiev able to obtain optimal diagnostic quality images. DICOM format image data is available [employer] y for review and comparison. FINDINGS: There is mild induration of the subcutaneous soft tissues of the left face from the zygomatic arches down to the submandibular region. Mild thickening of the platysmas muscle. No drainable fluid colle ctions seen. No radiopaque foreign bodies. The osseous structures about the mandible and zygomatic arch are intact. Prevertebral soft tissues are normal in thickness. No evidence of lateral compartment adenopathy or submandibular adenopathy. The parotid and submandibular glands are normal in appearance. There is mild mucosal thickening in the left maxillary sinus, concentric and there is opacification o f one left posterior ethmoid air cell. The right maxillary and ethmoid sinuses are clear. The front al and sphenoid sinuses are clear. CONCLUSION: 1. Subcutaneous soft tissue thickening and induration left lower neck without drainable fluid collect ions. 2. Left maxillary and ethmoid sinus disease. Rakesh Coronado MD on April 21, 2017 at 11:19 Board Certified Radiologist. This report was verified electronically.
[2017-04-21 12:06] VITALS: BP 116/69; PULSE 100; RESP 16; TEMP 98.4; O2SAT 98
[2017-04-21 16:06] VITALS: BP 115/58; PULSE 99; RESP 16; TEMP 98.7; O2SAT 98
[2017-04-21] MEDS: IBUPROFEN 600 MG TAB PO PRN ×2 (17:20→23:35)
[2017-04-21] MEDS ORDERED: PHARMACY ORDERED LAB ONE (17:45)
[2017-04-21 20:00] VITALS: BP 114/62; PULSE 89; RESP 17; TEMP 98.7; O2SAT 100
[2017-04-22] VITALS: BP 119/65; PULSE 85; RESP 17; TEMP 98.2; O2SAT 100
[2017-04-22 04:00] VITALS: BP 111/55; PULSE 65; RESP 17; TEMP 97.4; O2SAT 100
[2017-04-22] MEDS: PENICILLIN V POTASSIUM 500 MG TAB PO SCH (05:35)
[2017-04-22 08:00] VITALS: BP 107/58; PULSE 72; RESP 18; TEMP 97.9; O2SAT 99
[2017-04-22 08:03] LABS: AUTOMATED NEUTROPHIL # 3.9 TH/MM3 (1.8-7.7); BASOPHIL # 0.1 TH/MM3 (0-0.2); BASOPHIL % 0.6 % (0.0-2.0); EOSINOPHIL # 0.5 TH/MM3 (0-0.4); EOSINOPHIL % 5.7 % (0.0-4.0); HEMATOCRIT 35.8 % (39.0-51.0); HEMO FLAGS DIFF FINAL; LYMPH % 30.6 % (9.0-44.0); LYMPHOCYTE # 2.5 TH/MM3 (1.0-4.8); MEAN CELL VOLUME 86.7 FL (80.0-100.0); MEAN CORPUSCULAR HEMOGLOBIN 29.8 PG (27.0-34.0); MEAN CORPUSCULAR HGB CONC 34.4 % (32.0-36.0); MONO % 15.3 % (0.0-8.0); NEUT % 47.8 % (16.0-70.0); PLATELET COUNT 303 TH/MM3 (150-450); RED BLOOD COUNT 4.13 MIL/MM3 (4.50-5.90); RED CELL DISTRIBUTION WIDTH 14.5 % (11.6-17.2); WHITE BLOOD COUNT 8.1 TH/MM3 (4.0-11.0)
[2017-04-22 08:23] LABS: BICARBONATE 28.9 MEQ/L (21.0-32.0); POTASSIUM 4.5 MEQ/L (3.5-5.1)
[2017-04-22] MEDS: SODIUM CHLORIDE 0.9% FLUSH 10 ML FLUSH IV FLUSH SCH ×2 (09:37→23:18)
[2017-04-22] MEDS: ACETAMINOPHEN 325 MG TAB PO PRN ×2 (09:37→15:17)
[2017-04-22] MEDS: FAMOTIDINE 20 MG TAB PO SCH ×2 (09:37→23:18)
[2017-04-22] MEDS: DOCUSATE SODIUM 50 MG/SENNA 8.6 MG TAB PO SCH ×2 (09:37→21:00)
[2017-04-22] MEDS: VANCOMYCIN INJ 1,250 MG in SODIUM CHLOR 0.9% 250 ML INJ 250 ML IV SCH ×2 (09:57→18:23)
[2017-04-22 12:00] VITALS: BP 118/58; PULSE 85; RESP 18; TEMP 97.6; O2SAT 99
--- NOTE | 2017-04-22 12:44 | HHI.IDPN ---
Subjective Subjective Remarks Patient is a 26-year-old male, who was initially admitted at [facility] the first week of March with cellulitis in his left leg. He had blood cultures done at that time and he had multiple sets of blood culture that grew Bacillus. An echo was done at that time which did not show any evidence of any endocarditis. ERASTO was recommended, but the patient signed out AGAINST MEDICAL ADVICE. He came back to the emergency room on April 09, but he signed out AGAINST MEDICAL ADVICE soon after that. He had repeat blood cultures done on April 09 in the are negative. This time patient came back complaining of chest pain. It is pleuritic in nature. He denies any shortness of breath or any congestion or cough. He has not had any respiratory symptoms, GI or any urinary complaints. He states he had some fever several days ago. Patient has known IV drug use, and the last time he used it was about 2 weeks ago. Since admission he has not had any fever. His WBC is normal. Blood cultures are negative so far. CTA did not show any pulmonary embolism but it did show some scattered nodular lesion suggestive of inflammatory process. ERASTO was done and it did not show any obvious evidence of endocarditis. Notes reviewed Temps ok Developed L sided facial swelling, no tootache Has known dental caries but not bothering him currently CP better BC are negative BC (+) Bacillus 03/29-04/02 BC 04/[address] chest C/W septic emboli to the lung Antibiotics Vancomycin Current Medications Medications (Trade) Dose Ordered Sig/Mikal Route Start Time Stop Time Status Last Admin (NS Flush) 2 ml UNSCH PRN IV FLUSH 04/14/17 09:30 04/21/17 02:34 (NS Flush) 2 ml BID IV FLUSH 04/14/17 21:00 04/22/17 09:37 (Tylenol) 650 mg Q4H PRN PO 04/14/17 09:30 04/22/17 09:37 (Zofran Inj) 4 mg Q6H PRN IVP 04/14/17 09:30 (Narcan Inj) 0.4 mg UNSCH PRN IV PUSH 04/14/17 09:30 (Milly-Colace) 1 tab BID PO 04/14/17 21:00 04/22/17 09:37 (Milk Of Magnesia Liq) 30 ml Q12H PRN PO 04/14/17 09:30 (Senokot) 17.2 mg Q12H PRN PO 04/14/17 09:30 (Dulcolax Supp) 10 mg DAILY PRN RECTAL 04/14/17 09:30 (Lactulose Liq) 30 ml DAILY PRN PO 04/14/17 09:30 Pharmacy Profile Note 0 ml @ 0 mls/hr UNSCH OTHER 04/14/17 09:30 (Motrin) 600 mg Q8H PRN PO 04/14/17 15:00 04/21/17 23:35 Vancomycin HCl 1250 mg/Sodium Chloride 262.5 ml @ 250 mls/hr Q8H IV 04/19/17 18:00 04/22/17 09:57 (Pepcid) 10 mg BID PO 04/19/17 13:00 04/26/17 12:59 04/22/17 09:37 (Augmentin) 500 mg Q8HR PO 04/22/17 14:00 05/02/17 13:59 UNV Vancomycin PCN po Current Medications Medications (Trade) Dose Ordered Sig/Mikal Route Start Time Stop Time Status Last Admin (NS Flush) 2 ml UNSCH PRN IV FLUSH 04/14/17 09:30 04/21/17 02:34 (NS Flush) 2 ml BID IV FLUSH 04/14/17 21:00 04/22/17 09:37 (Tylenol) 650 mg Q4H PRN PO 04/14/17 09:30 04/22/17 09:37 (Zofran Inj) 4 mg Q6H PRN IVP 04/14/17 09:30 (Narcan Inj) 0.4 mg UNSCH PRN IV PUSH 04/14/17 09:30 (Milly-Colace) 1 tab BID PO 04/14/17 21:00 04/22/17 09:37 (Milk Of Magnesia Liq) 30 ml Q12H PRN PO 04/14/17 09:30 (Senokot) 17.2 mg Q12H PRN PO 04/14/17 09:30 (Dulcolax Supp) 10 mg DAILY PRN RECTAL 04/14/17 09:30 (Lactulose Liq) 30 ml DAILY PRN PO 04/14/17 09:30 Pharmacy Profile Note 0 ml @ 0 mls/hr UNSCH OTHER 04/14/17 09:30 (Motrin) 600 mg Q8H PRN PO 04/14/17 15:00 04/21/17 23:35 Vancomycin HCl 1250 mg/Sodium Chloride 262.5 ml @ 250 mls/hr Q8H IV 04/19/17 18:00 04/22/17 09:57 (Pepcid) 10 mg BID PO 04/19/17 13:00 04/26/17 12:59 04/22/17 09:37 (Augmentin) 500 mg Q8HR PO 04/22/17 14:00 05/02/17 13:59 UNV Lines PIV Past Medical History Skin cancer Past Surgical History Some kind of jaw surgery related to trauma Allergies: Coded Allergies: No Known Allergies (Verified Allergy, Unknown, 04/14/17) Objective . Vital Signs Date Time Temp Pulse Resp B/P (MAP) Pulse Ox O2 Delivery O2 Flow Rate FiO2 04/22/17 08:00 97.9 72 18 107/58 (74) 99 04/22/17 04:00 97.4 65 17 111/55 (73) 100 04/22/17 00:58 Room Air 04/22/17 00:06 18 04/22/17 00:06 18 04/22/17 00:00 98.2 85 17 119/65 (83) 100 04/21/17 20:00 98.7 89 17 114/62 (79) 100 04/21/17 16:06 98.7 99 16 115/58 (77) 98 . Laboratory Tests Test 04/22/17 06:17 White Blood Count 8.1 TH/MM3 Red Blood Count 4.13 MIL/MM3 Hemoglobin 12.3 GM/DL Hematocrit 35.8 % Mean Corpuscular Volume 86.7 FL Mean Corpuscular Hemoglobin 29.8 PG Mean Corpuscular Hemoglobin Concent 34.4 % Red Cell Distribution Width 14.5 % Platelet Count 303 TH/MM3 Mean Platelet Volume 7.1 FL Neutrophils (%) (Auto) 47.8 % Lymphocytes (%) (Auto) 30.6 % Monocytes (%) (Auto) 15.3 % Eosinophils (%) (Auto) 5.7 % Basophils (%) (Auto) 0.6 % Neutrophils # (Auto) 3.9 TH/MM3 Lymphocytes # (Auto) 2.5 TH/MM3 Monocytes # (Auto) 1.2 TH/MM3 Eosinophils # (Auto) 0.5 TH/MM3 Basophils # (Auto) 0.1 TH/MM3 CBC Comment DIFF FINAL Differential Comment Laboratory Tests Test 04/22/17 06:17 Blood Urea Nitrogen 14 MG/DL Creatinine 0.77 MG/DL Random Glucose 81 MG/DL Calcium Level 8.9 MG/DL Magnesium Level 2.0 MG/DL Sodium Level 139 MEQ/L Potassium Level 4.5 MEQ/L Chloride Level 104 MEQ/L Carbon Dioxide Level 28.9 MEQ/L Anion Gap 6 MEQ/L Estimat Glomerular Filtration Rate 124 ML/MIN Imaging Last Impressions Chest X-Ray 04/14/17639 Signed Impressions: Service Date/Time: Friday, April 14, 2017 06:47 - CONCLUSION: The lungs are clear. Rakesh Coronado MD CT Angiography 04/14/17639 Signed Impressions: Service Date/Time: Friday, April 14, 2017 07:43 - CONCLUSION: 1. No pulmonary embolus. 2. Subcentimeter pulmonary nodules as above, presumably infectious or inflammatory. 6 month followup noncontrast chest CT is recommended. 3. Apparent hepatosplenomegaly, nonspecific. 4. Nonacute right first rib fracture. Harpal Bueno MD Physical Exam GENERAL: awake and alert, not in respiratory distress. SKIN: Warm and dry. Has swelling/induration on his L cheek, not red, tender HEAD: Atraumatic. Normocephalic. No temporal wasting, or tenderness. EYES: [place] conjunctiva. No petechia or hemorrhage. Pupils equal, round and reactive to light. Extraocular movements full and intact. No scleral icterus. No injection or drainage. EARS, NOSE AND THROAT: Nose without bleeding or purulent nasal discharge. No sinus tenderness. Mucous membranes pink and moist. No tenderness in upper teeth on left NECK: Trachea midline. Supple and not tender, no meningeal signs CARDIOVASCULAR: Regular rate and rhythm. No murmurs, rubs or gallops heard RESPIRATORY: Clear to auscultation. Breath sounds equal bilaterally. No rales , wheezing or rhonchi ABDOMEN: Soft, non-tender, nondistended. Bowel sounds present and normoactive. No guarding. No rebound. No organomegaly. EXTREMITIES: No clubbing, cyanosis, or edema. No joint effusion, has good ROM. No calf tenderness. Well perfused and warm. NEUROLOGICAL: Non-focal PSYCHIATRIC: Normal affect, calm and cooperative. LINE: No evidence of infection Assessment & Plan Remarks IMPRESSION Previous episode of Bacillus bacteremia, BC (+) Nov - - ERASTO negative - CTA however showing nodular lesions very suggestive of septic emboli - With his clinical picture and results of work-up, this is very suggestive of R sided endocarditis CP, pleuritic due to septic emboli to the lung Known IVDU L facial cellulitis, had some tenderness on his teeth previous days, better now - CT negative (+) Drug screen RECOMMENDATION Continue IV Vanco Anticipated end date May 25, 2017 D/W Dr Benitez Change to Augmentin Will look at options for outpatient IV Abx Rx Patient will need to sign form for PICC, and that he is responsible if he uses PICC outside the intended use which is for his IV Abx, and if he gets complications as a result of his using it for his IVDU Connie Dale MD Apr 22, 2017 12:44
--- NOTE | 2017-04-22 14:33 | HHI.PR ---
Subjective Remarks Follow-up endocarditis and left facial swelling. He is doing okay with improved left facial swelling. Discussed with ID, we'll consider Dalvance to avoid PICC Objective Vitals Vital Signs Date Time Temp Pulse Resp B/P (MAP) Pulse Ox O2 Delivery O2 Flow Rate FiO2 04/22/17 12:00 97.6 85 18 118/58 (78) 99 04/22/17 08:00 97.9 72 18 107/58 (74) 99 04/22/17 07:15 Room Air 04/22/17 04:00 97.4 65 17 111/55 (73) 100 04/22/17 00:58 Room Air 04/22/17 00:06 18 04/22/17 00:06 18 04/22/17 00:00 98.2 85 17 119/65 (83) 100 04/21/17 20:00 98.7 89 17 114/62 (79) 100 04/21/17 16:06 98.7 99 16 115/58 (77) 98 I/O 04/21/17 04/21/17 04/21/17 04/22/17 04/22/17 04/22/17 07:00 15:00 23:00 07:00 15:00 23:00 Intake Total 480 ml 520 ml 880 ml Balance 480 ml 520 ml 880 ml Intake Oral 480 ml 520 ml 880 ml # Voids 3 8 2 # Bowel Movements 0 2 1 Result Diagram: 04/22/1761604/22/1717 Imaging Last Impressions Maxillofacial CT 04/21/17 0000 Signed Impressions: Service Date/Time: Friday, April 21, 2017 09:23 - CONCLUSION: 1. Subcutaneous soft tissue thickening and induration left lower neck without drainable fluid collections. 2. Left maxillary and ethmoid sinus disease. Rakesh Coronado MD Chest X-Ray 04/14/17639 Signed Impressions: Service Date/Time: Friday, April 14, 2017 06:47 - CONCLUSION: The lungs are clear. Rakesh Coronado MD CT Angiography 04/14/17639 Signed Impressions: Service Date/Time: Friday, April 14, 2017 07:43 - CONCLUSION: 1. No pulmonary embolus. 2. Subcentimeter pulmonary nodules as above, presumably infectious or inflammatory. 6 month followup noncontrast chest CT is recommended. 3. Apparent hepatosplenomegaly, nonspecific. 4. Nonacute right first rib fracture. Harpal Bueno MD Objective Remarks GENERAL: in NAD HEENT: tender left upper molars no swelling or discharge. left cheek with improving swelling and tenderness CARDIOVASCULAR: Regular rate and rhythm without murmurs, gallops, or rubs. RESPIRATORY: Breath sounds equal bilaterally. No accessory muscle use. GASTROINTESTINAL: Abdomen soft, non-tender, nondistended. MUSCULOSKELETAL: No cyanosis, or edema. BACK: Nontender without obvious deformity. No CVA tenderness. Alert and oriented nonfocal Procedures ERASTO A/P Problem List: (1) Endocarditis ICD Code: I38 - Endocarditis, valve unspecified Assessment and Plan This is a 26-year-old female who presented with bacteremia on last admission and left AMA twice Bacteremia Bacillus no anthracis -Culture from 03/29 2 positive, 03/31 05/30 positive and 04/02 05/30 positive. Labs reviewed from this admission relatively normal. -CT scan this chest suggests septic emboli concerning for right-sided endocarditis despite negative ERASTO. -Infectious disease consulted. Appreciate recommendations - if patient has safe place to stay, and consistent transportation to outpatient infusion clinic , we could start looking at D/C to get Rx at outpatient infusion clinic - will use IV Telavancin 700 mg daily x 28 days - labs while on Abx: CBC creatinine, LFT Patient will need to sign form for PICC, and that he is responsible if he uses PICC outside the intended use which is for his IV Abx, and if he gets complications as a result of his using it for his IVDU. Suspected ongoing illegal drug use while in house. His case has been escalated to legal team for advise. Discussed with ID again, we'll consider Dalvance to avoid PICC .-Continue with vancomycin pending final blood cultures negative to date. Pleuritic-type chest pain -Noncardiac. Per toolroom checker very unlikely that this is cardiac in nature. This is most likely secondary to septic emboli. -Continue with ibuprofen when necessary for pain. polysubstance abuse -UDs + cocaine, marijuana, and benzos. Rpt UDs with amphetamines -education given and discourage use. tobacco use in room -education given. Dental infection. Improving switch to Augmentin. Facial CT scan showed no abscess but also with sinusitis. Warm compresses. Needs outpatient follow-up with dental. DVT prophylaxis SCDs and encourage ambulation. Discharge Planning Patient needs long-term IV antibiotics for endocarditis. Stephen Benitez MD Apr 22, 2017 14:33
[2017-04-22] MEDS: IBUPROFEN 600 MG TAB PO PRN ×3 (15:16→23:24)
[2017-04-22] MEDS: AMOXICILLIN/CLAVULANATE K 500 MG TAB PO SCH ×2 (15:17→23:18)
[2017-04-22 16:00] VITALS: BP 119/72; PULSE 99; RESP 20; TEMP 98.4; O2SAT 99
[2017-04-22 20:00] VITALS: BP 116/59; PULSE 90; RESP 16; TEMP 97.8; O2SAT 99
[2017-04-23] VITALS: BP 105/62; PULSE 80; RESP 16; TEMP 99.3; O2SAT 99
[2017-04-23] MEDS: VANCOMYCIN INJ 1,250 MG in SODIUM CHLOR 0.9% 250 ML INJ 250 ML IV SCH ×3 (02:08→17:56)
[2017-04-23] MEDS: ACETAMINOPHEN 325 MG TAB PO PRN ×6 (02:08→22:13)
[2017-04-23 04:00] VITALS: BP 110/57; PULSE 66; RESP 16; TEMP 97.6; O2SAT 97
[2017-04-23] MEDS: AMOXICILLIN/CLAVULANATE K 500 MG TAB PO SCH ×3 (06:54→22:12)
[2017-04-23 08:00] VITALS: BP 115/59; PULSE 60; RESP 16; TEMP 98.1; O2SAT 99
[2017-04-23] MEDS: FAMOTIDINE 20 MG TAB PO SCH ×2 (08:38→22:12)
[2017-04-23] MEDS: DOCUSATE SODIUM 50 MG/SENNA 8.6 MG TAB PO SCH ×2 (08:39→21:00)
[2017-04-23] MEDS: SODIUM CHLORIDE 0.9% FLUSH 10 ML FLUSH IV FLUSH SCH ×2 (09:55→21:00)
--- NOTE | 2017-04-23 10:17 | HHI.PR ---
Subjective Remarks Follow-up endocarditis, left dental infection and sinusitis. Improving left facial swelling and pain tolerating by mouth. Discussed with RN Objective Vitals Vital Signs Date Time Temp Pulse Resp B/P (MAP) Pulse Ox O2 Delivery O2 Flow Rate FiO2 04/23/17 07:00 Room Air 04/23/17 04:00 Room Air 04/23/17 04:00 97.6 66 16 110/57 (74) 97 04/23/17 00:00 99.3 80 16 105/62 (76) 99 04/23/17 00:00 Room Air 04/22/17 20:00 Room Air 04/22/17 20:00 97.8 90 16 116/59 (78) 99 04/22/17 16:00 98.4 99 20 119/72 (88) 99 04/22/17 12:00 97.6 85 18 118/58 (78) 99 I/O 04/22/17 04/22/17 04/22/17 04/23/17 04/23/17 04/23/17 07:00 15:00 23:00 07:00 15:00 23:00 Intake Total 880 ml 960 ml 275 ml Balance 880 ml 960 ml 275 ml Intake Oral 880 ml 960 ml IV Total 275 ml # Voids 2 2 # Bowel Movements 1 1 Result Diagram: 04/22/1761604/22/17616 Imaging Last Impressions Maxillofacial CT 04/21/17 0000 Signed Impressions: Service Date/Time: Friday, April 21, 2017 09:23 - CONCLUSION: 1. Subcutaneous soft tissue thickening and induration left lower neck without drainable fluid collections. 2. Left maxillary and ethmoid sinus disease. Rakesh Coronado MD Chest X-Ray 04/14/17639 Signed Impressions: Service Date/Time: Friday, April 14, 2017 06:47 - CONCLUSION: The lungs are clear. Rakesh Coronado MD CT Angiography 04/14/17639 Signed Impressions: Service Date/Time: Friday, April 14, 2017 07:43 - CONCLUSION: 1. No pulmonary embolus. 2. Subcentimeter pulmonary nodules as above, presumably infectious or inflammatory. 6 month followup noncontrast chest CT is recommended. 3. Apparent hepatosplenomegaly, nonspecific. 4. Nonacute right first rib fracture. Harpal Bueno MD Objective Remarks GENERAL: in NAD HEENT: Improving tenderness left upper molars no swelling or discharge. left cheek with improving swelling and tenderness CARDIOVASCULAR: Regular rate and rhythm without murmurs, gallops, or rubs. RESPIRATORY: Breath sounds equal bilaterally. No accessory muscle use. GASTROINTESTINAL: Abdomen soft, non-tender, nondistended. MUSCULOSKELETAL: No cyanosis, or edema. BACK: Nontender without obvious deformity. No CVA tenderness. Alert and oriented nonfocal Procedures ERASTO A/P Problem List: (1) Endocarditis ICD Code: I38 - Endocarditis, valve unspecified Assessment and Plan This is a 26-year-old female who presented with bacteremia on last admission and left AMA twice Bacteremia 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 Labs reviewed from this admission relatively normal. -CT scan this chest suggests septic emboli concerning for right-sided endocarditis despite negative ERASTO. -Infectious disease consulted. Appreciate recommendations - if patient has safe place to stay, and consistent transportation to outpatient infusion clinic , we could start looking at D/C to get Rx at outpatient infusion clinic - will use IV Telavancin 700 mg daily x 28 days - labs while on Abx: CBC creatinine, LFT Patient will need to sign form for PICC, and that he is responsible if he uses PICC outside the intended use which is for his IV Abx, and if he gets complications as a result of his using it for his IVDU. ADMITS to ongoing illegal drug use while in house. His case has been escalated to legal team for advise. Discussed with ID again, we'll consider Dalvance once every 10 days for 3 doses to avoid PICC .-Continue with vancomycin pending final blood cultures negative to date. Pleuritic-type chest pain -Noncardiac. Per paralegal supervisor very unlikely that this is cardiac in nature. This is most likely secondary to septic emboli. -Continue with ibuprofen when necessary for pain. polysubstance abuse -UDs + cocaine, marijuana, and benzos. Rpt UDs with amphetamines -education given and discourage use. tobacco use in room -education given. Dental infection. Improving switch to Augmentin. Facial CT scan showed no abscess but also with sinusitis. Warm compresses. Needs outpatient follow-up with dental. DVT prophylaxis SCDs and encourage ambulation. Discharge Planning Patient needs long-term IV antibiotics for endocarditis. Stephen Benitez MD Apr 23, 2017 10:17
[2017-04-23 12:00] VITALS: BP 120/60; PULSE 82; RESP 16; TEMP 98; O2SAT 99
[2017-04-23 16:00] VITALS: BP 116/56; PULSE 91; RESP 18; TEMP 98.5; O2SAT 98
[2017-04-23 20:00] VITALS: BP 118/65; PULSE 90; RESP 17; TEMP 97.8; O2SAT 96
[2017-04-24] VITALS: BP 122/72; PULSE 92; RESP 18; TEMP 98; O2SAT 95
[2017-04-24] MEDS: VANCOMYCIN INJ 1,250 MG in SODIUM CHLOR 0.9% 250 ML INJ 250 ML IV SCH ×3 (02:44→18:11)
[2017-04-24] MEDS: ACETAMINOPHEN 325 MG TAB PO PRN ×5 (02:45→18:11)
[2017-04-24 04:00] VITALS: BP 120/82; PULSE 88; RESP 18; TEMP 97.8; O2SAT 99
[2017-04-24] MEDS: AMOXICILLIN/CLAVULANATE K 500 MG TAB PO SCH ×3 (06:35→21:16)
[2017-04-24 08:00] VITALS: BP 95/52; PULSE 75; RESP 20; TEMP 98.1; O2SAT 99
--- NOTE | 2017-04-24 08:30 | HHI.PR ---
Subjective Remarks Follow-up endocarditis, left dental infection and sinusitis. Patient in nad. Says she is eating fairly well. No pain at this time. No n/v/d/ c. No fever or chills. Objective Vitals Vital Signs Date Time Temp Pulse Resp B/P (MAP) Pulse Ox O2 Delivery O2 Flow Rate FiO2 04/24/17 04:00 97.8 88 18 120/82 (95) 99 04/24/17 04:00 Room Air 04/24/17 00:00 Room Air 04/24/17 00:00 98.0 92 18 122/72 (89) 95 04/23/17 20:00 97.8 90 17 118/65 (82) 96 04/23/17 20:00 Room Air 04/23/17 16:00 98.5 91 18 116/56 (76) 98 04/23/17 12:00 98.0 82 16 120/60 (80) 99 I/O 04/23/17 04/23/17 04/23/17 04/24/17 04/24/17 04/24/17 07:00 15:00 23:00 07:00 15:00 23:00 Intake Total 275 ml 720 ml 1665 ml Balance 275 ml 720 ml 1665 ml Intake Oral 720 ml 1390 ml IV Total 275 ml 275 ml # Voids 3 3 # Bowel Movements 0 1 Result Diagram: 04/22/1761604/22/17616 Imaging Last Impressions Maxillofacial CT 04/21/17 0000 Signed Impressions: Service Date/Time: Friday, April 21, 2017 09:23 - CONCLUSION: 1. Subcutaneous soft tissue thickening and induration left lower neck without drainable fluid collections. 2. Left maxillary and ethmoid sinus disease. Rakesh Coronado MD Chest X-Ray 04/14/17639 Signed Impressions: Service Date/Time: Friday, April 14, 2017 06:47 - CONCLUSION: The lungs are clear. Rakesh Coronado MD CT Angiography 04/14/17639 Signed Impressions: Service Date/Time: Friday, April 14, 2017 07:43 - CONCLUSION: 1. No pulmonary embolus. 2. Subcentimeter pulmonary nodules as above, presumably infectious or inflammatory. 6 month followup noncontrast chest CT is recommended. 3. Apparent hepatosplenomegaly, nonspecific. 4. Nonacute right first rib fracture. Harpal Bueno MD Objective Remarks GENERAL: in NAD HEENT: Improving tenderness left upper molars no swelling or discharge. left cheek with improving swelling and tenderness CARDIOVASCULAR: Regular rate and rhythm without murmurs, gallops, or rubs. RESPIRATORY: Breath sounds equal bilaterally. No accessory muscle use. GASTROINTESTINAL: Abdomen soft, non-tender, nondistended. MUSCULOSKELETAL: No cyanosis, or edema. BACK: Nontender without obvious deformity. No CVA tenderness. NEURO: Alert and oriented nonfocal Procedures ERASTO A/P Problem List: (1) Endocarditis ICD Code: I38 - Endocarditis, valve unspecified Assessment and Plan This is a 26-year-old female who presented with bacteremia on last admission and left AMA twice Bacteremia 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 Labs reviewed from this admission relatively normal. -CT scan this chest suggests septic emboli concerning for right-sided endocarditis despite negative ERASTO. -Infectious disease consulted. Appreciate recommendations - if patient has safe place to stay, and consistent transportation to outpatient infusion clinic , we could start looking at D/C to get Rx at outpatient infusion clinic - will use IV Telavancin 700 mg daily x 28 days - labs while on Abx: CBC creatinine, LFT Patient will need to sign form for PICC, and that he is responsible if he uses PICC outside the intended use which is for his IV Abx, and if he gets complications as a result of his using it for his IVDU. ADMITS to ongoing illegal drug use while in house. His case has been escalated to legal team for advise. Discussed with ID again, we'll consider Dalvance once every 10 days for 3 doses to avoid PICC .-Continue with vancomycin pending final blood cultures negative to date. Pleuritic-type chest pain -Noncardiac. Per hat blocker very unlikely that this is cardiac in nature. This is most likely secondary to septic emboli. -Continue with ibuprofen when necessary for pain. Polysubstance abuse -UDs + cocaine, marijuana, and benzos. Rpt UDs with amphetamines -education given and discourage use. Tobacco use in room -education given. Dental infection. Improving switch to Augmentin. Facial CT scan showed no abscess but also with sinusitis. Warm compresses. Needs outpatient follow-up with dental. DVT prophylaxis SCDs and encourage ambulation. Discharge Planning Patient needs long-term IV antibiotics for endocarditis. Discussed with Dr Dale ID specialist and patient is not cleared by ID for PICC line and send out with a PICC line. Work up in progress for approval of Delvance , discussed with Fercho from pharmacy and patient is having Delvance poss on Saturday. Ivelisse Sandoval MD Apr 24, 2017 08:30
[2017-04-24] MEDS: DOCUSATE SODIUM 50 MG/SENNA 8.6 MG TAB PO SCH ×3 (09:00→21:16)
[2017-04-24] MEDS: FAMOTIDINE 20 MG TAB PO SCH ×2 (10:12→21:16)
[2017-04-24] MEDS: SODIUM CHLORIDE 0.9% FLUSH 10 ML FLUSH IV FLUSH SCH ×2 (10:12→21:16)
[2017-04-24 12:00] VITALS: BP 107/56; PULSE 83; RESP 18; TEMP 98.4; O2SAT 98
[2017-04-24 16:00] VITALS: BP 108/60; PULSE 78; RESP 20; TEMP 98.3; O2SAT 99
[2017-04-24 20:00] VITALS: BP 114/56; PULSE 86; RESP 16; TEMP 98; O2SAT 98
[2017-04-24] MEDS: IBUPROFEN 600 MG TAB PO PRN (21:16)
[2017-04-25] VITALS: BP 96/54; PULSE 56; RESP 16; TEMP 97.1; O2SAT 97
[2017-04-25] MEDS: VANCOMYCIN INJ 1,250 MG in SODIUM CHLOR 0.9% 250 ML INJ 250 ML IV SCH ×3 (02:10→18:19)
[2017-04-25 04:00] VITALS: BP 105/54; PULSE 66; RESP 16; TEMP 97.9; O2SAT 100
[2017-04-25] MEDS: AMOXICILLIN/CLAVULANATE K 500 MG TAB PO SCH ×3 (06:23→20:52)
[2017-04-25 08:00] VITALS: BP 157/76; PULSE 74; RESP 20; TEMP 98; O2SAT 97
[2017-04-25] MEDS: DOCUSATE SODIUM 50 MG/SENNA 8.6 MG TAB PO SCH ×2 (09:04→20:52)
[2017-04-25] MEDS: FAMOTIDINE 20 MG TAB PO SCH ×2 (09:04→20:52)
[2017-04-25] MEDS: SODIUM CHLORIDE 0.9% FLUSH 10 ML FLUSH IV FLUSH SCH ×2 (09:05→20:52)
[2017-04-25 12:00] VITALS: BP 124/55; PULSE 86; RESP 20; TEMP 98.4; O2SAT 100
--- NOTE | 2017-04-25 14:17 | HHI.PR ---
Subjective Remarks No fever or chills. No n/v/d/c. Objective Vitals Vital Signs Date Time Temp Pulse Resp B/P (MAP) Pulse Ox O2 Delivery O2 Flow Rate FiO2 04/25/17 12:00 98.4 86 20 124/55 (78) 100 04/25/17 08:00 98.0 74 20 157/76 (103) 97 04/25/17 04:00 97.9 66 16 105/54 (71) 100 04/25/17 00:00 97.1 56 16 96/54 (68) 97 04/24/17 20:00 Room Air 04/24/17 20:00 98.0 86 16 114/56 (75) 98 04/24/17 16:00 98.3 78 20 108/60 (76) 99 I/O 04/24/17 04/24/17 04/24/17 04/25/17 04/25/17 04/25/17 07:00 15:00 23:00 07:00 15:00 23:00 Intake Total 1665 ml 1462.2 ml 1342.2 ml 480 ml Balance 1665 ml 1462.2 ml 1342.2 ml 480 ml Intake Oral 1390 ml 1200 ml 1080 ml 480 ml IV Total 275 ml 262.2 ml 262.2 ml # Voids 3 2 1 # Bowel Movements 1 0 1 Result Diagram: 04/22/1717 04/24/17 0938 Imaging Last Impressions Maxillofacial CT 04/21/17 0000 Signed Impressions: Service Date/Time: Friday, April 21, 2017 09:23 - CONCLUSION: 1. Subcutaneous soft tissue thickening and induration left lower neck without drainable fluid collections. 2. Left maxillary and ethmoid sinus disease. Rakesh Coronado MD Chest X-Ray 04/14/1740 Signed Impressions: Service Date/Time: Friday, April 14, 2017 06:47 - CONCLUSION: The lungs are clear. Rakesh Coronado MD CT Angiography 04/14/1740 Signed Impressions: Service Date/Time: Friday, April 14, 2017 07:43 - CONCLUSION: 1. No pulmonary embolus. 2. Subcentimeter pulmonary nodules as above, presumably infectious or inflammatory. 6 month followup noncontrast chest CT is recommended. 3. Apparent hepatosplenomegaly, nonspecific. 4. Nonacute right first rib fracture. Harpal Bueno MD Objective Remarks GENERAL: in NAD HEENT: Improving tenderness left upper molars no swelling or discharge. left cheek with improving swelling and tenderness CARDIOVASCULAR: Regular rate and rhythm without murmurs, gallops, or rubs. RESPIRATORY: Breath sounds equal bilaterally. No accessory muscle use. GASTROINTESTINAL: Abdomen soft, non-tender, nondistended. MUSCULOSKELETAL: No cyanosis, or edema. BACK: Nontender without obvious deformity. No CVA tenderness. NEURO: Alert and oriented nonfocal Procedures ERASTO A/P Problem List: (1) Endocarditis ICD Code: I38 - Endocarditis, valve unspecified Assessment and Plan This is a 26-year-old female who presented with bacteremia on last admission and left AMA twice Bacteremia 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 Labs reviewed from this admission relatively normal. -CT scan this chest suggests septic emboli concerning for right-sided endocarditis despite negative ERASTO. -Infectious disease consulted. Appreciate recommendations - if patient has safe place to stay, and consistent transportation to outpatient infusion clinic , we could start looking at D/C to get Rx at outpatient infusion clinic - will use IV Telavancin 700 mg daily x 28 days - labs while on Abx: CBC creatinine, LFT Patient will need to sign form for PICC, and that he is responsible if he uses PICC outside the intended use which is for his IV Abx, and if he gets complications as a result of his using it for his IVDU. ADMITS to ongoing illegal drug use while in house. His case has been escalated to legal team for advise. Discussed with ID again, we'll consider Dalvance once every 10 days for 3 doses to avoid PICC. .-Continue with vancomycin pending final blood cultures negative to date. Pleuritic-type chest pain -Noncardiac. Per marketing communications specialist very unlikely that this is cardiac in nature. This is most likely secondary to septic emboli. -Continue with ibuprofen when necessary for pain. Polysubstance abuse -UDs + cocaine, marijuana, and benzos. Rpt UDs with amphetamines -education given and discourage use. Tobacco use in room -education given. Dental infection. Improving switch to Augmentin. Facial CT scan showed no abscess but also with sinusitis. Warm compresses. Needs outpatient follow-up with dental. DVT prophylaxis SCDs and encourage ambulation. Discharge Planning Patient needs long-term IV antibiotics for endocarditis. Discussed with Dr Dale ID specialist and patient is not cleared by ID for PICC line and send out with a PICC line. Work up in progress for approval of Delvance , discussed with Fercho from pharmacy and patient is having Delvance poss on Saturday. Ivelisse Sandoval MD Apr 25, 2017 14:17
[2017-04-25 16:00] VITALS: BP 108/57; PULSE 94; RESP 20; TEMP 98.5; O2SAT 100
[2017-04-25 20:00] VITALS: BP 107/56; PULSE 81; RESP 18; TEMP 98.7; O2SAT 100
[2017-04-26] VITALS: BP 101/55; PULSE 68; RESP 20; TEMP 96.5; O2SAT 98
[2017-04-26] MEDS ORDERED: PHARMACY ORDERED LAB ONE (01:45)
[2017-04-26] MEDS: VANCOMYCIN INJ 1,250 MG in SODIUM CHLOR 0.9% 250 ML INJ 250 ML IV SCH ×2 (02:55→10:28)
[2017-04-26 04:00] VITALS: BP 105/57; PULSE 74; RESP 20; TEMP 97.8; O2SAT 98
[2017-04-26] MEDS: AMOXICILLIN/CLAVULANATE K 500 MG TAB PO SCH ×3 (06:33→22:00)
[2017-04-26 08:07] VITALS: BP 105/59; PULSE 73; RESP 16; TEMP 97.7; O2SAT 100
--- NOTE | 2017-04-26 08:47 | HHI.PR ---
Subjective Remarks In the chair. Appears in not acute distress. No fever or chills overnight. Eating well. Denies any pain at this time. Objective Vitals Vital Signs Date Time Temp Pulse Resp B/P (MAP) Pulse Ox O2 Delivery O2 Flow Rate FiO2 04/26/17 04:00 97.8 74 20 105/57 (73) 98 04/26/17 04:00 Room Air 04/26/17 00:00 96.5 68 20 101/55 (70) 98 04/26/17 00:00 Room Air 04/25/17 20:00 Room Air 04/25/17 20:00 98.7 81 18 107/56 (73) 100 04/25/17 16:00 98.5 94 20 108/57 (74) 100 04/25/17 12:00 98.4 86 20 124/55 (78) 100 I/O 04/25/17 04/25/17 04/25/17 04/26/17 04/26/17 04/26/17 07:00 15:00 23:00 07:00 15:00 23:00 Intake Total 1342.2 ml 480 ml 1582.5 ml 262.5 ml Balance 1342.2 ml 480 ml 1582.5 ml 262.5 ml Intake Oral 1080 ml 480 ml 1320 ml IV Total 262.2 ml 262.5 ml 262.5 ml # Voids 1 3 1 # Bowel Movements 1 3 0 Result Diagram: 04/22/17 0617 04/26/17 0246 Objective Remarks GENERAL: in NAD HEENT: Improving tenderness left upper molars no swelling or discharge. left cheek with improving swelling and tenderness CARDIOVASCULAR: Regular rate and rhythm without murmurs, gallops, or rubs. RESPIRATORY: Breath sounds equal bilaterally. No accessory muscle use. GASTROINTESTINAL: Abdomen soft, non-tender, nondistended. MUSCULOSKELETAL: No cyanosis, or edema. BACK: Nontender without obvious deformity. No CVA tenderness. NEURO: Alert and oriented nonfocal Procedures [facility]STO A/P Problem List: (1) Endocarditis ICD Code: I38 - Endocarditis, valve unspecified Assessment and Plan This is a 26-year-old female who presented with bacteremia on last admission and left AMA twice Bacteremia Bacillus no anthracis -Culture from 03/29 06/30 positive, 03/31 05/30 positive and 11/7 1/4 positive. Labs reviewed from this admission relatively normal. -CT scan this chest suggests septic emboli concerning for right-sided endocarditis despite negative ERASTO. -Infectious disease consulted. Appreciate recommendations - if patient has safe place to stay, and consistent transportation to outpatient infusion clinic , we could start looking at D/C to get Rx at outpatient infusion clinic - will use IV Telavancin 700 mg daily x 28 days - labs while on Abx: CBC creatinine, LFT Patient will need to sign form for PICC, and that he is responsible if he uses PICC outside the intended use which is for his IV Abx, and if he gets complications as a result of his using it for his IVDU. ADMITS to ongoing illegal drug use while in house. His case has been escalated to legal team for advise. Discussed with ID again, we'll consider Dalvance once every 10 days for 3 doses to avoid PICC. .-Continue with vancomycin pending final blood cultures negative to date. Pleuritic-type chest pain -Noncardiac. Per able bodied seaman very unlikely that this is cardiac in nature. This is most likely secondary to septic emboli. -Continue with ibuprofen when necessary for pain. Polysubstance abuse -UDs + cocaine, marijuana, and benzos. Rpt UDs with amphetamines -education given and discourage use. Tobacco use in room -education given. Dental infection. Improving switch to Augmentin. Facial CT scan showed no abscess but also with sinusitis. Warm compresses. Needs outpatient follow-up with dental. DVT prophylaxis SCDs and encourage ambulation. Discharge Planning Patient needs long-term IV antibiotics for endocarditis. Discussed with Dr Dale ID specialist and patient is not cleared by ID for PICC line and send out with a PICC line. Work up in progress for approval of Delvance , discussed with Fercho from pharmacy and patient is having Delvance poss on Saturday. Ivelisse Sandoval MD Apr 26, 2017 08:47
[2017-04-26] MEDS: DOCUSATE SODIUM 50 MG/SENNA 8.6 MG TAB PO SCH ×2 (09:00→21:00)
[2017-04-26] MEDS: FAMOTIDINE 20 MG TAB PO SCH (10:27)
[2017-04-26 12:07] VITALS: BP 110/56; PULSE 75; RESP 16; TEMP 98.3; O2SAT 99
[2017-04-26 16:07] VITALS: BP 114/63; PULSE 68; RESP 16; TEMP 98.1; O2SAT 100
--- NOTE | 2017-04-26 16:26 | HHI.IDPN ---
Subjective Subjective Remarks Patient is a 26-year-old male, who was initially admitted at [facility] the first week of March with cellulitis in his left leg. He had blood cultures done at that time and he had multiple sets of blood culture that grew Bacillus. An echo was done at that time which did not show any evidence of any endocarditis. ERASTO was recommended, but the patient signed out AGAINST MEDICAL ADVICE. He came back to the emergency room on April 09, but he signed out AGAINST MEDICAL ADVICE soon after that. He had repeat blood cultures done on April 09 in the are negative. This time patient came back complaining of chest pain. It is pleuritic in nature. He denies any shortness of breath or any congestion or cough. He has not had any respiratory symptoms, GI or any urinary complaints. He states he had some fever several days ago. Patient has known IV drug use, and the last time he used it was about 2 weeks ago. Since admission he has not had any fever. His WBC is normal. Blood cultures are negative so far. CTA did not show any pulmonary embolism but it did show some scattered nodular lesion suggestive of inflammatory process. ERASTO was done and it did not show any obvious evidence of endocarditis. Notes reviewed Temps ok STable ID long Awaiting Dalvance - possibly Saturday, he will need 2 doses Dalvance Antibiotics Vancomycin Current Medications Medications (Trade) Dose Ordered Sig/Mikal Route Start Time Stop Time Status Last Admin (NS Flush) 2 ml UNSCH PRN IV FLUSH 04/14/17 09:30 04/21/17 02:34 (NS Flush) 2 ml BID IV FLUSH 04/14/17 21:00 04/25/17 20:52 (Tylenol) 650 mg Q4H PRN PO 04/14/17 09:30 04/24/17 18:11 (Zofran Inj) 4 mg Q6H PRN IVP 04/14/17 09:30 (Narcan Inj) 0.4 mg UNSCH PRN IV PUSH 04/14/17 09:30 (Milly-Colace) 1 tab BID PO 04/14/17 21:00 04/25/17 09:04 (Milk Of Magnesia Liq) 30 ml Q12H PRN PO 04/14/17 09:30 (Senokot) 17.2 mg Q12H PRN PO 04/14/17 09:30 (Dulcolax Supp) 10 mg DAILY PRN RECTAL 04/14/17 09:30 (Lactulose Liq) 30 ml DAILY PRN PO 04/14/17 09:30 Pharmacy Profile Note 0 ml @ 0 mls/hr UNSCH OTHER 04/14/17 09:30 (Motrin) 600 mg Q8H PRN PO 04/14/17 15:00 04/24/17 21:16 (Augmentin) 500 mg Q8HR PO 04/22/17 14:00 05/02/17 13:59 04/26/17 14:54 Vancomycin HCl 1500 mg/Sodium Chloride 515 ml @ 257.5 mls/ hr Q8H IV 04/26/17 18:00 Miscellaneous Information SPECIFIC LAB TO BE [facility]... ONCE ONCE .XX 04/27/17 17:45 04/27/17 17:46 Lines PIV Past Medical History Skin cancer Past Surgical History Some kind of jaw surgery related to trauma Allergies: Coded Allergies: No Known Allergies (Verified Allergy, Unknown, 04/14/17) Objective . Vital Signs Date Time Temp Pulse Resp B/P (MAP) Pulse Ox O2 Delivery O2 Flow Rate FiO2 04/26/17 12:07 98.3 75 16 110/56 (74) 99 04/26/17 08:07 97.7 73 16 105/59 (74) 100 04/26/17 04:00 97.8 74 20 105/57 (73) 98 04/26/17 04:00 Room Air 04/26/17 00:00 96.5 68 20 101/55 (70) 98 04/26/17 00:00 Room Air 04/25/17 20:00 Room Air 04/25/17 20:00 98.7 81 18 107/56 (73) 100 . Laboratory Tests Test 04/26/17 02:46 Creatinine 0.79 MG/DL Estimat Glomerular Filtration Rate 121 ML/MIN Imaging Last Impressions Chest X-Ray 04/14/17 0640 Signed Impressions: Service Date/Time: Friday, April 14, 2017 06:47 - CONCLUSION: The lungs are clear. Rakesh Coronado MD CT Angiography 04/14/17 0640 Signed Impressions: Service Date/Time: Friday, April 14, 2017 07:43 - CONCLUSION: 1. No pulmonary embolus. 2. Subcentimeter pulmonary nodules as above, presumably infectious or inflammatory. 6 month followup noncontrast chest CT is recommended. 3. Apparent hepatosplenomegaly, nonspecific. 4. Nonacute right first rib fracture. Harpal Bueno MD Assessment & Plan Remarks IMPRESSION Previous episode of Bacillus bacteremia, BC (+) Nov - - ERASTO negative - CTA however showing nodular lesions very suggestive of septic emboli - With his clinical picture and results of work-up, this is very suggestive of R sided endocarditis CP, pleuritic due to septic emboli to the lung Known IVDU L facial cellulitis, improving - CT negative (+) Drug screen RECOMMENDATION Continue IV Vanco Augmentin to finish 05/02 Possibly D/C Saturday and get Dalvance Saturday in infusion clinic - will need 2nd dose in 10-14 days and that would complete his IE Rx Connie Dale MD Apr 26, 2017 16:26
[2017-04-26] MEDS: VANCOMYCIN 1,500 MG/NS 500 ML IV SCH ×2 (18:40)
[2017-04-26] MEDS: SODIUM CHLORIDE 0.9% FLUSH 10 ML FLUSH IV FLUSH SCH ×2 (18:40→21:00)
[2017-04-26] MEDS: NICOTINE 21 MG/24 HR PATCH T-DERMAL SCH (18:40)
[2017-04-26 20:00] VITALS: BP 121/63; PULSE 86; RESP 16; TEMP 99.8; O2SAT 99
[2017-04-26] MEDS: ACETAMINOPHEN 325 MG TAB PO PRN (22:19)
[2017-04-27] VITALS: BP 129/74; PULSE 84; RESP 16; TEMP 98.3; O2SAT 99
[2017-04-27] MEDS: VANCOMYCIN 1,500 MG/NS 500 ML IV SCH ×6 (02:56→17:27)
[2017-04-27 04:00] VITALS: BP 124/69; PULSE 80; RESP 16; TEMP 97.5; O2SAT 98
[2017-04-27] MEDS: AMOXICILLIN/CLAVULANATE K 500 MG TAB PO SCH ×3 (05:45→21:02)
[2017-04-27 08:07] VITALS: BP 111/67; PULSE 85; RESP 16; TEMP 98.2; O2SAT 99
--- NOTE | 2017-04-27 08:43 | HHI.PR ---
Subjective Remarks In bed appears in nad. IV site was not working yesterday, has a new IV, received antibiotics as scheduled. No fever or chills. No n/v/d/c. Objective Vitals Vital Signs Date Time Temp Pulse Resp B/P (MAP) Pulse Ox O2 Delivery O2 Flow Rate FiO2 04/27/17 04:00 97.5 80 16 124/69 (87) 98 04/27/17 01:35 Room Air 04/27/17 00:00 98.3 84 16 129/74 (92) 99 04/26/17 20:00 99.8 86 16 121/63 (82) 99 04/26/17 16:07 98.1 68 16 114/63 (80) 100 04/26/17 12:07 98.3 75 16 110/56 (74) 99 I/O 04/26/17 04/26/17 04/26/17 04/27/17 04/27/17 04/27/17 07:00 15:00 23:00 07:00 15:00 23:00 Intake Total 262.5 ml 262.5 ml 999.5 ml 515 ml Balance 262.5 ml 262.5 ml 999.5 ml 515 ml Intake Oral 480 ml IV Total 262.5 ml 262.5 ml 519.5 ml 515 ml # Voids 1 7 # Bowel Movements 0 2 Result Diagram: 04/26/17 0246 Imaging Last Impressions Maxillofacial CT 04/21/17 0000 Signed Impressions: Service Date/Time: Friday, April 21, 2017 09:23 - CONCLUSION: 1. Subcutaneous soft tissue thickening and induration left lower neck without drainable fluid collections. 2. Left maxillary and ethmoid sinus disease. Rakesh Coronado MD Chest X-Ray 04/14/1740 Signed Impressions: Service Date/Time: Friday, April 14, 2017 06:47 - CONCLUSION: The lungs are clear. Rakesh Coronado MD CT Angiography 04/14/1740 Signed Impressions: Service Date/Time: Friday, April 14, 2017 07:43 - CONCLUSION: 1. No pulmonary embolus. 2. Subcentimeter pulmonary nodules as above, presumably infectious or inflammatory. 6 month followup noncontrast chest CT is recommended. 3. Apparent hepatosplenomegaly, nonspecific. 4. Nonacute right first rib fracture. Harpal Bueno MD Objective Remarks GENERAL: in NAD HEENT: Improving tenderness left upper molars no swelling or discharge. left cheek with improving swelling and tenderness CARDIOVASCULAR: Regular rate and rhythm without murmurs, gallops, or rubs. RESPIRATORY: Breath sounds equal bilaterally. No accessory muscle use. GASTROINTESTINAL: Abdomen soft, non-tender, nondistended. MUSCULOSKELETAL: No cyanosis, or edema. BACK: Nontender without obvious deformity. No CVA tenderness. NEURO: Alert and oriented nonfocal Procedures ERASTO A/P Problem List: (1) Endocarditis ICD Code: I38 - Endocarditis, valve unspecified Assessment and Plan This is a 26-year-old female who presented with bacteremia on last admission and left AMA twice Bacteremia 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 Labs reviewed from this admission relatively normal. -CT scan this chest suggests septic emboli concerning for right-sided endocarditis despite negative ERASTO. -Infectious disease consulted. Appreciate recommendations - if patient has safe place to stay, and consistent transportation to outpatient infusion clinic , we could start looking at D/C to get Rx at outpatient infusion clinic - will use IV Telavancin 700 mg daily x 28 days - labs while on Abx: CBC creatinine, LFT Patient will need to sign form for PICC, and that he is responsible if he uses PICC outside the intended use which is for his IV Abx, and if he gets complications as a result of his using it for his IVDU. ADMITS to ongoing illegal drug use while in house. His case has been escalated to legal team for advise. Discussed with ID again, we'll consider Dalvance once every 10 days for 3 doses to avoid PICC. .-Continue with vancomycin pending final blood cultures negative to date. Pleuritic-type chest pain -Noncardiac. Per chairman & chief executive officer very unlikely that this is cardiac in nature. This is most likely secondary to septic emboli. -Continue with ibuprofen when necessary for pain. Polysubstance abuse -UDs + cocaine, marijuana, and benzos. Rpt UDs with amphetamines -education given and discourage use. Tobacco use in room -education given. Dental infection. Improving switch to Augmentin. Facial CT scan showed no abscess but also with sinusitis. Warm compresses. Needs outpatient follow-up with dental. DVT prophylaxis SCDs and encourage ambulation. Discharge Planning Patient needs long-term IV antibiotics for endocarditis. Discussed with Dr Dale ID specialist and patient is not cleared by ID for PICC line and send out with a PICC line. Work up in progress for approval of Delvance , discussed with Fercho from pharmacy and patient is having Delvance poss on Saturday. Ivelisse Sandoval MD Apr 27, 2017 08:43
[2017-04-27] MEDS: DOCUSATE SODIUM 50 MG/SENNA 8.6 MG TAB PO SCH ×2 (08:53→21:00)
[2017-04-27] MEDS: NICOTINE 21 MG/24 HR PATCH T-DERMAL SCH (08:53)
[2017-04-27] MEDS: REMOVE OLD PATCH T-DERMAL SCH (08:53)
[2017-04-27] MEDS: SODIUM CHLORIDE 0.9% FLUSH 10 ML FLUSH IV FLUSH SCH ×2 (08:54→21:03)
[2017-04-27 12:07] VITALS: BP 121/58; PULSE 86; RESP 16; TEMP 98.9; O2SAT 100
[2017-04-27 16:07] VITALS: BP 127/57; PULSE 104; RESP 16; TEMP 98.6; O2SAT 97
[2017-04-27] MEDS ORDERED: PHARMACY ORDERED LAB ONE (17:45)
[2017-04-27 20:00] VITALS: BP 132/80; PULSE 98; RESP 16; TEMP 98.4; O2SAT 96
[2017-04-27] MEDS: ACETAMINOPHEN 325 MG TAB PO PRN (21:03)
[2017-04-27] MEDS: IBUPROFEN 600 MG TAB PO PRN (22:35)
[2017-04-28] VITALS: BP 122/62; PULSE 83; RESP 16; TEMP 98; O2SAT 98
[2017-04-28] MEDS: VANCOMYCIN 1,500 MG/NS 500 ML IV SCH ×2 (01:43)
[2017-04-28] MEDS: ACETAMINOPHEN 325 MG TAB PO PRN ×2 (01:44→19:55)
[2017-04-28] MEDS ORDERED: PHARMACY ORDERED LAB ONE (01:45)
[2017-04-28 04:00] VITALS: BP 114/57; PULSE 98; RESP 18; TEMP 98.2; O2SAT 99
[2017-04-28] MEDS: AMOXICILLIN/CLAVULANATE K 500 MG TAB PO SCH ×3 (05:50→22:27)
[2017-04-28 08:00] VITALS: BP 98/52; PULSE 75; RESP 16; TEMP 98.2; O2SAT 99
[2017-04-28] MEDS: DOCUSATE SODIUM 50 MG/SENNA 8.6 MG TAB PO SCH ×2 (09:00→19:56)
[2017-04-28] MEDS: REMOVE OLD PATCH T-DERMAL SCH (09:53)
[2017-04-28] MEDS: NICOTINE 21 MG/24 HR PATCH T-DERMAL SCH (09:53)
[2017-04-28] MEDS: VANCOMYCIN INJ 1,400 MG in SODIUM CHLORID 0.9% 500 ML INJ 500 ML IV SCH ×2 (09:54→17:48)
[2017-04-28] MEDS: SODIUM CHLORIDE 0.9% FLUSH 10 ML FLUSH IV FLUSH SCH ×2 (09:54→19:56)
[2017-04-28 12:00] VITALS: BP 107/67; PULSE 83; RESP 16; TEMP 98.4; O2SAT 99
--- NOTE | 2017-04-28 12:06 | HHI.PR ---
Subjective Remarks Had diarrhea yesterday , will start lactinex. No fever or chills. No n/v/. No abd pain. Objective Vitals Vital Signs Date Time Temp Pulse Resp B/P (MAP) Pulse Ox O2 Delivery O2 Flow Rate FiO2 04/28/17 08:00 98.2 75 16 98/52 (67) 99 04/28/17 07:00 Room Air 04/28/17 04:00 Room Air 04/28/17 04:00 98.2 98 18 114/57 (76) 99 04/28/17 00:00 Room Air 04/28/17 00:00 98.0 83 16 122/62 (82) 98 04/27/17 20:00 98.4 98 16 132/80 (97) 96 04/27/17 20:00 Room Air 04/27/17 16:07 98.6 104 16 127/57 (80) 97 04/27/17 12:07 98.9 86 16 121/58 (79) 100 I/O 04/27/17 04/27/17 04/27/17 04/28/17 04/28/17 04/28/17 07:00 15:00 23:00 07:00 15:00 23:00 Intake Total 515 ml 515 ml 1035 ml 1700 ml Balance 515 ml 515 ml 1035 ml 1700 ml Intake Oral 520 ml 1150 ml IV Total 515 ml 515 ml 515 ml 550 ml # Voids 7 6 # Bowel Movements 1 1 Result Diagram: 04/26/17 0246 Imaging Last Impressions Maxillofacial CT 04/21/17 0000 Signed Impressions: Service Date/Time: Friday, April 21, 2017 09:23 - CONCLUSION: 1. Subcutaneous soft tissue thickening and induration left lower neck without drainable fluid collections. 2. Left maxillary and ethmoid sinus disease. Rakesh Coronado MD Chest X-Ray 04/14/1740 Signed Impressions: Service Date/Time: Friday, April 14, 2017 06:47 - CONCLUSION: The lungs are clear. Rakesh Coronado MD CT Angiography 04/14/17 0640 Signed Impressions: Service Date/Time: Friday, April 14, 2017 07:43 - CONCLUSION: 1. No pulmonary embolus. 2. Subcentimeter pulmonary nodules as above, presumably infectious or inflammatory. 6 month followup noncontrast chest CT is recommended. 3. Apparent hepatosplenomegaly, nonspecific. 4. Nonacute right first rib fracture. Harpal Bueno MD Objective Remarks GENERAL: in NAD HEENT: Improving tenderness left upper molars no swelling or discharge. left cheek with improving swelling and tenderness CARDIOVASCULAR: Regular rate and rhythm without murmurs, gallops, or rubs. RESPIRATORY: Breath sounds equal bilaterally. No accessory muscle use. GASTROINTESTINAL: Abdomen soft, non-tender, nondistended. MUSCULOSKELETAL: No cyanosis, or edema. BACK: Nontender without obvious deformity. No CVA tenderness. NEURO: Alert and oriented nonfocal Procedures ERASTO A/P Problem List: (1) Endocarditis ICD Code: I38 - Endocarditis, valve unspecified Assessment and Plan This is a 26-year-old female who presented with bacteremia on last admission and left AMA twice Bacteremia Bacillus no anthracis -Culture from 03/29 2 positive, 03/31 05/30 positive and 04/02 05/30 positive. Labs reviewed from this admission relatively normal. -CT scan this chest suggests septic emboli concerning for right-sided endocarditis despite negative ERASTO. -Infectious disease consulted. Appreciate recommendations - if patient has safe place to stay, and consistent transportation to outpatient infusion clinic , we could start looking at D/C to get Rx at outpatient infusion clinic - will use IV Telavancin 700 mg daily x 28 days - labs while on Abx: CBC creatinine, LFT Patient will need to sign form for PICC, and that he is responsible if he uses PICC outside the intended use which is for his IV Abx, and if he gets complications as a result of his using it for his IVDU. ADMITS to ongoing illegal drug use while in house. His case has been escalated to legal team for advise. Discussed with ID again, we'll consider Dalvance once every 10 days for 3 doses to avoid PICC. -Continue with vancomycin pending final blood cultures negative to date. Pleuritic-type chest pain -Noncardiac. Per cavalry scout very unlikely that this is cardiac in nature. This is most likely secondary to septic emboli. -Continue with ibuprofen when necessary for pain. Polysubstance abuse -UDs + cocaine, marijuana, and benzos. Rpt UDs with amphetamines -education given and discourage use. Tobacco use in room -education given. Dental infection. Improving switch to Augmentin. Facial CT scan showed no abscess but also with sinusitis. Warm compresses. Needs outpatient follow-up with dental. Diarrhea: Start lactinex. DVT prophylaxis SCDs and encourage ambulation. Discharge Planning Patient needs long-term IV antibiotics for endocarditis. Discussed with Dr Dale ID specialist and patient is not cleared by ID for PICC line and send out with a PICC line. Work up in progress for approval of Delvance , discussed with Fercho from pharmacy and patient is having Delvance poss on Saturday. Ivelisse Sandoval MD Apr 28, 2017 12:06
[2017-04-28] MEDS: LACTOBACILLUS ACIDOPHILUS TAB PO SCH ×2 (13:25→19:55)
[2017-04-28 16:00] VITALS: BP 108/58; PULSE 90; RESP 16; TEMP 98.3; O2SAT 99
[2017-04-28 20:00] VITALS: BP 123/61; PULSE 92; RESP 16; TEMP 98.8; O2SAT 100
[2017-04-29] VITALS: BP 108/60; PULSE 76; RESP 18; TEMP 98.4; O2SAT 99
[2017-04-29] MEDS: VANCOMYCIN INJ 1,400 MG in SODIUM CHLORID 0.9% 500 ML INJ 500 ML IV SCH ×3 (01:41→18:45)
[2017-04-29 04:00] VITALS: BP 105/56; PULSE 75; RESP 16; TEMP 98.1; O2SAT 99
[2017-04-29] MEDS: AMOXICILLIN/CLAVULANATE K 500 MG TAB PO SCH ×3 (05:32→21:07)
[2017-04-29 08:00] VITALS: BP 115/56; PULSE 80; RESP 18; TEMP 98.2; O2SAT 98
--- NOTE | 2017-04-29 08:07 | HHI.DS ---
Discharge Summary Admission Date Apr 14, 2017 at 09:14 Discharge Date: Apr 29, 2017 Admitting Diagnosis bacteremia, suspect endocarditis (1) Endocarditis ICD Code: I38 - Endocarditis, valve unspecified Procedures ERASTO Brief History - From Admission This is a 26-year-old male IV drug user who had 2 previous admission due to bacteremia from bacillus no anthracis who left AMA twice. Patient stated that he came back because he is ready for treatment. Patient also complained of chest pain with deep inspiration. Deny any shortness of breathing or cough. Denies any association with food. Deny any recent upper respiratory infection. Otherwise he has no complaints. Denied any fevers or chills. All other review system reviewed and negative. CBC/BMP: 04/26/17 0246 Significant Findings Laboratory Tests Test 04/28/17 01:38 Vancomycin Level Trough 21.1 MCG/ML (5.0-10.0) Imaging Last Impressions Maxillofacial CT 04/21/17 0000 Signed Impressions: Service Date/Time: Friday, April 21, 2017 09:23 - CONCLUSION: 1. Subcutaneous soft tissue thickening and induration left lower neck without drainable fluid collections. 2. Left maxillary and ethmoid sinus disease. Rakesh Coronado MD Chest X-Ray 04/14/17 0640 Signed Impressions: Service Date/Time: Friday, April 14, 2017 06:47 - CONCLUSION: The lungs are clear. Rakesh Coronado MD CT Angiography 04/14/17 0640 Signed Impressions: Service Date/Time: Friday, April 14, 2017 07:43 - CONCLUSION: 1. No pulmonary embolus. 2. Subcentimeter pulmonary nodules as above, presumably infectious or inflammatory. 6 month followup noncontrast chest CT is recommended. 3. Apparent hepatosplenomegaly, nonspecific. 4. Nonacute right first rib fracture. Harpal Bueno MD PE at Discharge GENERAL: in NAD HEENT: Improving tenderness left upper molars no swelling or discharge. left cheek with improving swelling and tenderness CARDIOVASCULAR: Regular rate and rhythm without murmurs, gallops, or rubs. RESPIRATORY: Breath sounds equal bilaterally. No accessory muscle use. GASTROINTESTINAL: Abdomen soft, non-tender, nondistended. MUSCULOSKELETAL: No cyanosis, or edema. BACK: Nontender without obvious deformity. No CVA tenderness. NEURO: Alert and oriented nonfocal Hospital Course This is a 26-year-old female who presented with bacteremia on last admission and left AMA twice. Patient with Bacteremia Bacillus no anthracis Culture from 03/29 2 positive, 03/31 05/30 positive and 04/02 05/30 positive. Labs reviewed from this admission relatively normal. CT scan this chest suggests septic emboli concerning for right-sided endocarditis despite negative ERASTO. -Infectious disease consulted. Appreciate recommendations - if patient has safe place to stay, and consistent transportation to outpatient infusion clinic , we could start looking at D/C to get Rx at outpatient infusion clinic Patient will need to sign form for PICC, and that he is responsible if he uses PICC outside the intended use which is for his IV Abx, and if he gets complications as a result of his using it for his IVDU. ADMITS to ongoing illegal drug use while in house. His case has been escalated to legal team for advise. Discussed with ID again. Patient will have Dalvance once every 10 days for 3 doses to avoid PICC. -Continue with vancomycin pending final blood cultures negative to date and patient gaffney gabbi Hebert as OP arranged by ID and Pharmacy Polysubstance abuse.. Counselled at length on multiple occasions. -UDs + cocaine, marijuana, and benzos. Rpt UDs with amphetamines -education given and discourage use. Patient needs long-term IV antibiotics for endocarditis. Discussed with Dr Dale ID specialist and patient is not cleared by ID for PICC line and send out with a PICC line. Approval of Delvance , discussed with Fercho from pharmacy and patient is having Delvance . DC in stable condition to follow up as OP with PCP and consultants. Pt Condition on Discharge: Stable Discharge Disposition: Discharge Home Discharge Time: > 30 minutes Discharge Instructions DIET: Follow Instructions for: As Tolerated, No Restrictions Activities you can perform: Regular-No Restrictions Follow up Referrals: PCP Follow-up - 2-3 Days Medication Profile: Unable to Obtain Active Prescriptions or Reported Meds Ivelisse Sandoval MD Apr 29, 2017 08:07
[2017-04-29] MEDS: DOCUSATE SODIUM 50 MG/SENNA 8.6 MG TAB PO SCH ×2 (09:00→20:07)
[2017-04-29] MEDS: REMOVE OLD PATCH T-DERMAL SCH (09:00)
--- NOTE | 2017-04-29 09:52 | HHI.IDPN ---
Note Infectious Disease Note ID Patient is for D/C today Will arrange for patient to get IV Dalvance 04/29 and 05/09 at [facility] Form for Dalvance patient assistance filled out, and CM to fax to [facility] D/W JERSON I filled out the antibiotic infusion form for the outpatient infusion clinic Discharge today and patient to go straight to the infusion clinic for his first dose of Dalvance. Connie Shin MD, MD Apr 29, 2017 09:52
--- NOTE | 2017-04-29 09:54 | HHI.FF ---
Infusion Therapy Location of Infusion Therapy: Ambulatory Infusion Therapy Order Patient Information Patient Weight 72.6 kg Diagnosis: Diagnosis Endocarditis Coded Allergies: No Known Allergies (Verified Allergy, Unknown, 04/14/17) Administer Medication Dalvance 1500 mg IV 04/29 and 05/09 Stop Treatment: May 10, 2017 Additional Information Venous access: Other (peripheral IV) Additional Instructions [x] Peripheral flush and dressing changes per protocol [x] Implanted port and central paint line operator: * Implanted port: 10 ml Normal Saline followed by 5 ml Heparin 100 units/ml Heparin flush after each use and monthly to maintain. [] May leave port accessed during therapy. [] May leave peripheral site accessed for duration of therapy. [x] If patient has SOB or respiratory distress, check oxygen saturation. If less than 90% or clinical signs of respiratory distress, administer oxygen at 2 L/min. via nasal cannula and notify physician. [x] Anaphylaxis/Reaction orders: * Stop infusion. * Keep IV line open with saline flush. * Notify physician. * Monitor vital signs every 15 minutes until symptoms resolve. * Check Oxygen saturation; Oxygen at 2 L/min. via nasal cannula if less than 90% or clinical signs of respiratory distress. * Administer diphenhydramine (Benadryl) 25 mg IV STAT, (unless patient has received as pre-med). May repeat once, if necessary. * Solu-Cortef 250 mg IVP over 30-60 seconds, use 100 mg vials for each dissolution. * Epinephrine (1mg/1 ml) 0.3 mg subcutaneously or IVP now with any signs of respiratory distress. * Check with physician for new additional pre-med orders if patient is re- challenged or re-treated. [x] May remove PICC line when treatment complete, after confirming with Physician. [x] If the patient is admitted to the hospital, the ED, or transferred via [facility] , complete transfer form including medication reconciliation order sheet. Connie Dale MD Apr 29, 2017 09:54
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
[2017-04-29] MEDS: SODIUM CHLORIDE 0.9% FLUSH 10 ML FLUSH IV FLUSH SCH ×2 (10:29→20:05)
[2017-04-29] MEDS: LACTOBACILLUS ACIDOPHILUS TAB PO SCH ×2 (10:29→20:07)
[2017-04-29] MEDS: NICOTINE 21 MG/24 HR PATCH T-DERMAL SCH (10:30)
--- NOTE | 2017-04-29 11:38 | HHI.PR ---
Subjective Remarks Patient in nad. No fever ro chills. abx arranged at [place]. Objective Vitals Vital Signs Date Time Temp Pulse Resp B/P (MAP) Pulse Ox O2 Delivery O2 Flow Rate FiO2 04/29/17 11:31 Room Air 04/29/17 08:00 98.2 80 18 115/56 (75) 98 04/29/17 04:00 98.1 75 16 105/56 (72) 99 04/29/17 04:00 Room Air 04/29/17 00:00 98.4 76 18 108/60 (76) 99 04/29/17 00:00 Room Air 04/29/17 00:00 Room Air 04/28/17 20:00 98.8 92 16 123/61 (81) 100 04/28/17 20:00 Room Air 04/28/17 16:00 98.3 90 16 108/58 (75) 99 04/28/17 12:00 98.4 83 16 107/67 (80) 99 I/O 04/28/17 04/28/17 04/28/17 04/29/17 04/29/17 04/29/17 07:00 15:00 23:00 07:00 15:00 23:00 Intake Total 1700 ml 514 ml 1715 ml 994 ml Balance 1700 ml 514 ml 1715 ml 994 ml Intake Oral 1150 ml 1200 ml 480 ml IV Total 550 ml 514 ml 515 ml 514 ml # Voids 6 2 2 # Bowel Movements 1 1 0 Result Diagram: 04/26/17 0246 Imaging Last Impressions Maxillofacial CT 04/21/17 0000 Signed Impressions: Service Date/Time: Friday, April 21, 2017 09:23 - CONCLUSION: 1. Subcutaneous soft tissue thickening and induration left lower neck without drainable fluid collections. 2. Left maxillary and ethmoid sinus disease. Rakesh Coronado MD Chest X-Ray 04/14/17 0640 Signed Impressions: Service Date/Time: Friday, April 14, 2017 06:47 - CONCLUSION: The lungs are clear. Rakesh Coronado MD CT Angiography 04/14/17 0640 Signed Impressions: Service Date/Time: Friday, April 14, 2017 07:43 - CONCLUSION: 1. No pulmonary embolus. 2. Subcentimeter pulmonary nodules as above, presumably infectious or inflammatory. 6 month followup noncontrast chest CT is recommended. 3. Apparent hepatosplenomegaly, nonspecific. 4. Nonacute right first rib fracture. Harpal Bueno MD Objective Remarks GENERAL: in NAD HEENT: Improving tenderness left upper molars no swelling or discharge. left cheek with improving swelling and tenderness CARDIOVASCULAR: Regular rate and rhythm without murmurs, gallops, or rubs. RESPIRATORY: Breath sounds equal bilaterally. No accessory muscle use. GASTROINTESTINAL: Abdomen soft, non-tender, nondistended. MUSCULOSKELETAL: No cyanosis, or edema. BACK: Nontender without obvious deformity. No CVA tenderness. NEURO: Alert and oriented nonfocal Procedures ERASTO A/P Problem List: (1) Endocarditis ICD Code: I38 - Endocarditis, valve unspecified Assessment and Plan This is a 26-year-old female who presented with bacteremia on last admission and left AMA twice Bacteremia 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 Labs reviewed from this admission relatively normal. -CT scan this chest suggests septic emboli concerning for right-sided endocarditis despite negative ERASTO. -Infectious disease consulted. Appreciate recommendations - if patient has safe place to stay, and consistent transportation to outpatient infusion clinic , we could start looking at D/C to get Rx at outpatient infusion clinic - will use IV Telavancin 700 mg daily x 28 days - labs while on Abx: CBC creatinine, LFT Patient will need to sign form for PICC, and that he is responsible if he uses PICC outside the intended use which is for his IV Abx, and if he gets complications as a result of his using it for his IVDU. ADMITS to ongoing illegal drug use while in house. His case has been escalated to legal team for advise. Discussed with ID again, we'll consider Dalvance once every 10 days for 3 doses to avoid PICC. -Continue with vancomycin pending final blood cultures negative to date. Pleuritic-type chest pain -Noncardiac. Per c d area supervisor very unlikely that this is cardiac in nature. This is most likely secondary to septic emboli. -Continue with ibuprofen when necessary for pain. Polysubstance abuse -UDs + cocaine, marijuana, and benzos. Rpt UDs with amphetamines -education given and discourage use. Tobacco use in room -education given. Dental infection. Improving switch to Augmentin. Facial CT scan showed no abscess but also with sinusitis. Warm compresses. Needs outpatient follow-up with dental. Diarrhea: Start lactinex. DVT prophylaxis SCDs and encourage ambulation. Discharge Planning Patient needs long-term IV antibiotics for endocarditis. Discussed with Dr Dale ID specialist and patient is not cleared by ID for PICC line and send out with a PICC line. Approval of Erlin , discussed with Fercho from pharmacy and patient is having Delvance today. Ivelisse Sandoval MD Apr 29, 2017 11:38
[2017-04-29 12:00] VITALS: BP 137/61; PULSE 97; RESP 18; TEMP 98.1; O2SAT 100
[2017-04-29 16:00] VITALS: BP 119/57; PULSE 99; RESP 18; TEMP 98.1; O2SAT 100
[2017-04-29 20:00] VITALS: BP 127/60; PULSE 97; RESP 20; TEMP 98.2; O2SAT 99
[2017-04-29] MEDS: ACETAMINOPHEN 325 MG TAB PO PRN (20:06)
[2017-04-29] MEDS: IBUPROFEN 600 MG TAB PO PRN (22:51)
[2017-04-30] VITALS: BP 108/53; PULSE 79; RESP 20; TEMP 98.6; O2SAT 98
[2017-04-30] MEDS: VANCOMYCIN INJ 1,400 MG in SODIUM CHLORID 0.9% 500 ML INJ 500 ML IV SCH ×2 (02:31→09:06)
[2017-04-30 04:00] VITALS: BP 106/51; PULSE 70; RESP 20; TEMP 98; O2SAT 98
[2017-04-30] MEDS: AMOXICILLIN/CLAVULANATE K 500 MG TAB PO SCH (05:15)
[2017-04-30 08:00] VITALS: BP 110/55; PULSE 90; RESP 20; TEMP 98.1; O2SAT 96
[2017-04-30] MEDS: SODIUM CHLORIDE 0.9% FLUSH 10 ML FLUSH IV FLUSH SCH (09:00)
[2017-04-30] MEDS: NICOTINE 21 MG/24 HR PATCH T-DERMAL SCH (09:01)
[2017-04-30] MEDS: DOCUSATE SODIUM 50 MG/SENNA 8.6 MG TAB PO SCH (09:01)
[2017-04-30] MEDS: LACTOBACILLUS ACIDOPHILUS TAB PO SCH (09:01)
[2017-04-30] MEDS: REMOVE OLD PATCH T-DERMAL SCH (09:06)
--- NOTE | 2017-04-30 10:19 | HHI.PR ---
Subjective Remarks pleasant and cooperative no fever or chills, no pain no complains of any dental pain Objective Vitals Vital Signs Date Time Temp Pulse Resp B/P (MAP) Pulse Ox O2 Delivery O2 Flow Rate FiO2 04/30/17 09:15 Room Air 04/30/17 08:00 98.1 90 20 110/55 (73) 96 04/30/17 04:00 98.0 70 20 106/51 (69) 98 04/30/17 00:00 98.6 79 20 108/53 (71) 98 04/29/17 20:00 98.2 97 20 127/60 (82) 99 04/29/17 19:30 Room Air 04/29/17 16:00 98.1 99 18 119/57 (77) 100 04/29/17 12:00 98.1 97 18 137/61 (86) 100 04/29/17 11:31 Room Air I/O 04/29/17 04/29/17 04/29/17 04/30/17 04/30/17 04/30/17 07:00 15:00 23:00 07:00 15:00 23:00 Intake Total 994 ml 1030 ml 1150 ml Balance 994 ml 1030 ml 1150 ml Intake Oral 480 ml 480 ml 600 ml IV Total 514 ml 550 ml 550 ml # Voids 2 4 3 # Bowel Movements 0 1 Result Diagram: 04/26/17 0246 Imaging Last Impressions Maxillofacial CT 04/21/17 0000 Signed Impressions: Service Date/Time: Friday, April 21, 2017 09:23 - CONCLUSION: 1. Subcutaneous soft tissue thickening and induration left lower neck without drainable fluid collections. 2. Left maxillary and ethmoid sinus disease. Rakesh Coronado MD Chest X-Ray 04/14/17639 Signed Impressions: Service Date/Time: Friday, April 14, 2017 06:47 - CONCLUSION: The lungs are clear. Rakesh Coronado MD CT Angiography 04/14/17639 Signed Impressions: Service Date/Time: Friday, April 14, 2017 07:43 - CONCLUSION: 1. No pulmonary embolus. 2. Subcentimeter pulmonary nodules as above, presumably infectious or inflammatory. 6 month followup noncontrast chest CT is recommended. 3. Apparent hepatosplenomegaly, nonspecific. 4. Nonacute right first rib fracture. Harpal Bueno MD Objective Remarks awake and alert, oriented x 3 anicteric no nuchal rigidity lungs clear regular rhythm abdomen soft, nontender extremities no edema Procedures ERASTO A/P Problem List: (1) Endocarditis ICD Code: I38 - Endocarditis, valve unspecified Assessment and Plan This is a 26-year-old female who presented with bacteremia on last admission and left AMA twice Bacteremia Bacillus no anthracis Endocarditis -Culture from 03/29 2/ positive, 03/31/ positive and 04/02/ positive. Labs reviewed from this admission relatively normal. -CT scan this chest suggests septic emboli concerning for right-sided endocarditis despite negative ERASTO. -Infectious disease ff if patient has safe place to stay, and consistent transportation to outpatient infusion clinic, we could start looking at D/C to get Rx at outpatient infusion clinic - labs while on Abx: CBC creatinine, LFT Patient will need to sign form for PICC, and that he is responsible if he uses PICC outside the intended use which is for his IV Abx, and if he gets complications as a result of his using it for his IVDU. ADMITS to ongoing illegal drug use while in house. His case has been escalated to legal team for advise. Discussed with ID again, we'll consider Dalvance once every 10 days for 3 doses to avoid PICC. -Continue with vancomycin pending final blood cultures negative to date. - CM arranging for Dalvance approval continue on po augmentin till 05/02 -currently on IV vancomycin while in house Pleuritic-type chest pain -Noncardiac. Per panel fitter very unlikely that this is cardiac in nature. This is most likely secondary to septic emboli. -Continue with ibuprofen when necessary for pain. Polysubstance abuse -UDs + cocaine, marijuana, and benzos. Rpt UDs with amphetamines -education given and discourage use. - very motivated with lifestyle modification Tobacco use in room -education given. Dental infection. po Augmentin till 05/02. Facial CT scan showed no abscess but also with sinusitis. Warm compresses. Needs outpatient follow-up with dental. Diarrhea: Start lactinex. - no further episodes CM ff- pending Dalvance approval Teddy Alvarez MD Apr 30, 2017 10:19
[2017-04-30] MEDS ORDERED: Amoxicil-Clavulanate PO (10:32)
== END 2017-04-30 11:55 | disposition home or self-care (01) | DRG 307 ==
LOC: NEPE 05:47 → NEDA 09:14 → HCIS 10:13 → N04A 04-15 06:10
PROVIDERS: ADMIT Internal Medicine; ATTEND Internal Medicine
PROC: B246ZZ4 Ultrasonography of Right and Left Heart, Transesophageal (ICD-10-PCS; principal; 2017-04-14)
DX: I38 Endocarditis, valve unspecified (principal); I76 Septic arterial embolism; R78.81 Bacteremia; L03.211 Cellulitis of face; F17.210 Nicotine dependence, cigarettes, uncomplicated; R91.8 Other nonspecific abnormal finding of lung field; F14.10 Cocaine abuse, uncomplicated; F12.10 Cannabis abuse, uncomplicated; F13.10 Sedative, hypnotic or anxiolytic abuse, uncomplicated; F15.10 Other stimulant abuse, uncomplicated; K02.9 Dental caries, unspecified; R19.7 Diarrhea, unspecified; K04.7 Periapical abscess without sinus; J32.8 Other chronic sinusitis; Z85.828 Personal history of other malignant neoplasm of skin
CPT/HCPCS: 70487; 71010; 71275; 76937; 80048; 80202; 80307; 82565; 83735; 84484; 85025; 87040; 93005; 93312; 93320; 93325; J3370; J7040; J7050; Q9967

== ENCOUNTER 2017-05-02 20:39 | Emergency (ER) | payer SELFPAY ==
[~2017-05-02] VITALS: Ht 165.1 cm; Wt 73.0 kg
[~2017-05-02 20:39] MED LIST changes: +Amoxicil-Clavulanate PO; -BACT800T5 PO; -CEPH-460 PO
[2017-05-02 20:40] VITALS: BP 167/77; PULSE 124; RESP 18; TEMP 98.4; O2SAT 98
[2017-05-02] MEDS ORDERED: ASPIRIN 81 MG CHEW TAB PO ONE (22:00)
[2017-05-02] MEDS ORDERED: SODIUM CHLORIDE 0.9% FLUSH 10 ML FLUSH IVF PRN (22:00)
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
[2017-05-02 22:01] VITALS: BP_SYST 110; BP_SYST 140; BP_DIAS 63; BP_DIAS 68; PULSE 120; RESP 16; O2SAT 99
[2017-05-02 22:02] VITALS: O2SAT 99
[2017-05-02 22:31] LABS: AUTOMATED NEUTROPHIL # 4.4 TH/MM3 (1.8-7.7); BASOPHIL # 0.1 TH/MM3 (0-0.2); BASOPHIL % 0.9 % (0.0-2.0); EOSINOPHIL # 0.1 TH/MM3 (0-0.4); EOSINOPHIL % 1.1 % (0.0-4.0); HEMATOCRIT 36.8 % (39.0-51.0); HEMO FLAGS DIFF FINAL; LYMPH % 26.8 % (9.0-44.0); LYMPHOCYTE # 2.1 TH/MM3 (1.0-4.8); MEAN CELL VOLUME 85.5 FL (80.0-100.0); MEAN CORPUSCULAR HEMOGLOBIN 29.7 PG (27.0-34.0); MEAN CORPUSCULAR HGB CONC 34.7 % (32.0-36.0); MONO % 15.4 % (0.0-8.0); NEUT % 55.8 % (16.0-70.0); PLATELET COUNT 353 TH/MM3 (150-450); RED CELL DISTRIBUTION WIDTH 14.5 % (11.6-17.2); WHITE BLOOD COUNT 7.8 TH/MM3 (4.0-11.0)
[2017-05-02 22:44] LABS: ALT (GPT) 267 U/L (12-78); ANION GAP 10 MEQ/L (5-15); AST (GOT) 106 U/L (15-37); BICARBONATE 26.5 MEQ/L (21.0-32.0); BLOOD UREA NITROGEN 16 MG/DL (7-18); CHLORIDE 102 MEQ/L (98-107); GLOMERULAR FILTRATION RATE 82 ML/MIN (>89); MAGNESIUM 2.3 MG/DL (1.5-2.5); POTASSIUM 3.5 MEQ/L (3.5-5.1); SODIUM (NA) 138 MEQ/L (136-145)
[2017-05-02 22:49] LABS: ALKALINE PHOSPHATASE 97 U/L (45-117); CREATINE KINASE 618 U/L (39-308); TOTAL BILIRUBIN ADULT 0.9 MG/DL (0.2-1.0)
[2017-05-02 22:52] LABS: APTT (PATIENT) 29.4 SEC (24.3-30.1); INTERNATIONAL NORMALIZED RATIO 1.1 RATIO
[2017-05-02 22:55] VITALS: BP 112/78; PULSE 122; RESP 16; O2SAT 98
[2017-05-02 23:01] LABS: CKMB 5.8 NG/ML (0.5-3.6)
[2017-05-02] MEDS ORDERED: IOHEXOL 350 MG/ML 10 ML VIAL (for RAD DIAG) IVCONTRAST ONE (23:14)
--- NOTE | 2017-05-02 23:16 | RADRPT ---
EXAM DATE/TIME: 05/02/2017 22:58 [facility] COMPARISON: CT PULMONARY ANGIOGRAM, April 14, 2017, 7:43. INDICATIONS : Mid-sternal chest pain, history of septic emboli IV CONTRAST: 74 cc Omnipaque 350 (iohexol) IV RADIATION DOSE: 23.43 CTDIvol (mGy) MEDICAL HISTORY : Endocarditis SURGICAL HISTORY : None. ENCOUNTER: Initial ACUITY: 3 days PAIN SCALE: 6/10 LOCATION: chest TECHNIQUE: Volumetric scanning of the chest was performed using a pulmonary embolism protocol MIP images were re constructed. Using automated exposure control and adjustment of the mA and/or kV according to patien t size, radiation dose was kept as low as reasonably achievable to obtain optimal diagnostic quality images. DICOM format image data is available electronically for review and comparison. Follow-up recommendations for detected pulmonary nodules are based at a minimum on nodule size and pa tient risk factors according to Fleischner Society Guidelines. FINDINGS: Scattered tiny nodules are stable. There is no evidence of consolidation. No effusions are seen. No a denopathy. There is no evidence for pulmonary embolism. The osseous structures are intact. CONCLUSION: No evidence of pulmonary embolus. Tomi Elizabeth MD on May 02, 2017 at 23:13 Board Certified Radiologist. This report was verified electronically.
[2017-05-03] MEDS ORDERED: LORazepam 1 MG TAB PO ONE ×2 (00:15→03:30)
[2017-05-03] MEDS ORDERED: LORazepam 0.5 MG TAB PO ONE (02:00)
[2017-05-03] MEDS ORDERED: ALUMINUM/MAGNESIUM/SIMETH 30 ML CUP PO ONE (02:00)
[2017-05-03] MEDS ORDERED: LIDOCAINE VISCOUS 2% SOLN 15 ML UDC SWISH-SWAL ONE (02:00)
[2017-05-03 02:12] VITALS: BP 137/79; PULSE 125; RESP 16; O2SAT 97
[2017-05-03 03:23] VITALS: BP 129/80; PULSE 103; PULSE 110; RESP 16; O2SAT 98
[2017-05-03 03:23] LABS: CKMB 4.7 NG/ML (0.5-3.6)
[2017-05-03 04:08] VITALS: PULSE 97; RESP 16; O2SAT 98
--- NOTE | 2017-05-03 04:12 | PD ---
Physical Exam Date Seen by Provider: May 02, 2017 Time Seen by Provider: 23:[address] is negative for emboli septic nor pulmonary clots patient has 2 troponins that are negative CPK 618 goes down to 500s Ativan is given by mouth 3 to dull the effects of whatever stability took on his heart falls asleep eventually his heart rate is below 95 safe for discharge EKG was normal sinus rhythm troponins 2 is negative. Patient is discharged with diagnoses of drug reaction and tachycardia Data Data Last Documented VS Vital Signs Date Time Temp Pulse Resp B/P (MAP) Pulse Ox O2 Delivery O2 Flow Rate FiO2 05/03/17 09:16 05/03/17 06:09 84 14 98 Room Air 05/02/17 20:40 98.4 Orders Orders Electrocardiogram (05/02/17 21:47) Ckmb (Isoenzyme) Profile (05/02/17 21:47) Complete Blood Count With Diff (05/02/17 21:47) Comprehensive Metabolic Panel (05/02/17 21:47) Magnesium (Mg) (05/02/17 21:47) Prothrombin Time / Inr (Pt) (05/02/17 21:47) Act Partial Throm Time (Ptt) (05/02/17 21:47) Troponin I (05/02/17 21:47) Ecg Monitoring (05/02/17 21:47) Bilateral Bp Monitoring (05/02/17 21:47) Iv Access Insert/Monitor (05/02/17 21:47) Oximetry (05/02/17 21:47) Oxygen Administration (05/02/17 21:47) Aspirin Chew (Aspirin Chew) (05/02/17 22:00) Sodium Chloride 0.9% Flush (Ns Flush) (05/02/17 22:00) Ct Pulmonary Angiogram (05/02/17 ) Drug Screen, Random Urine (05/02/17 21:48) CKMB (05/02/17 21:56) CKMB% (05/02/17 21:56) Iohexol 350 Inj (Omnipaque 350 Inj) (05/02/17 23:14) Lorazepam (Ativan) (05/03/17 00:15) Al-Mag Hy-Si 40-40-4 Mg/Ml Liq (Mag-Al P (05/03/17 02:00) Lidocaine 2% Viscous (Xylocaine 2% Visco (05/03/17 02:00) Lorazepam (Ativan) (05/03/17 02:00) Troponin I (05/03/17 02:14) Creatine Kinase (Cpk) (05/03/17 02:47) CKMB (05/03/17 02:16) CKMB% (05/03/17 02:16) Lorazepam (Ativan) (05/03/17 03:30) Ed Discharge Order (05/03/17 04:12) Labs Laboratory Tests Test 05/02/17 21:56 05/03/17 00:30 05/03/17 02:16 White Blood Count 7.8 TH/MM3 Red Blood Count 4.30 MIL/MM3 Hemoglobin 12.8 GM/DL Hematocrit 36.8 % Mean Corpuscular Volume 85.5 FL Mean Corpuscular Hemoglobin 29.7 PG Mean Corpuscular Hemoglobin Concent 34.7 % Red Cell Distribution Width 14.5 % Platelet Count 353 TH/MM3 Mean Platelet Volume 6.7 FL Neutrophils (%) (Auto) 55.8 % Lymphocytes (%) (Auto) 26.8 % Monocytes (%) (Auto) 15.4 % Eosinophils (%) (Auto) 1.1 % Basophils (%) (Auto) 0.9 % Neutrophils # (Auto) 4.4 TH/MM3 Lymphocytes # (Auto) 2.1 TH/MM3 Monocytes # (Auto) 1.2 TH/MM3 Eosinophils # (Auto) 0.1 TH/MM3 Basophils # (Auto) 0.1 TH/MM3 CBC Comment DIFF FINAL Differential Comment Prothrombin Time 11.0 SEC Prothromb Time International Ratio 1.1 RATIO Activated Partial Thromboplast Time 29.4 SEC Blood Urea Nitrogen 16 MG/DL Creatinine 1.10 MG/DL Random Glucose 78 MG/DL Total Protein 8.9 GM/DL Albumin 4.6 GM/DL Calcium Level 9.5 MG/DL Magnesium Level 2.3 MG/DL Alkaline Phosphatase 97 U/L Aspartate Amino Transf (AST/SGOT) 106 U/L Alanine Aminotransferase (ALT/SGPT) 267 U/L Total Bilirubin 0.9 MG/DL Sodium Level 138 MEQ/L Potassium Level 3.5 MEQ/L Chloride Level 102 MEQ/L Carbon Dioxide Level 26.5 MEQ/L Anion Gap 10 MEQ/L Estimat Glomerular Filtration Rate 82 ML/MIN Total Creatine Kinase 618 U/L 523 U/L Creatine Kinase MB 5.8 NG/ML 4.7 NG/ML Creatine Kinase MB % 0.9 % 0.9 % Troponin I LESS THAN 0.02 NG/ML LESS THAN 0.02 NG/ML Urine Opiates Screen NEG Urine Barbiturates Screen NEG Urine Amphetamines Screen POS Urine Benzodiazepines Screen NEG Urine Cocaine Screen POS Urine Cannabinoids Screen POS MDM Supervised Visit with THOMAS: Yes Narrative Course i had to givn the pt 3 doses of ativan over the 5 hrs of observation in the ED so his heart rate would slow and then he fell asleep and hr was 95 , safe for discharge trop was negative and ativan to block the stimulation of cocaine on his heart rate . pt instructed to abstain from stimulant and cocaine abuse Diagnosis Primary Impression: Drug reaction Qualified Codes: T88.7XXA - Unspecified adverse effect of drug or medicament, initial encounter Additional Impression: Tachycardia Patient Instructions: Chest Pain (ED), General Instructions, Tachycardia (ED) Disposition: 01 DISCHARGE HOME Condition: Good Vincent Granger MD May 03, 2017 04:12
[2017-05-03 06:09] VITALS: BP 114/64; PULSE 84; PULSE 94; RESP 14; O2SAT 98
--- NOTE | 2017-05-03 08:02 | EKG ---
Date Performed: 05/02/2017 Time Performed: 21:55:38 PTAGE: 26 years EKG: SINUS TACHYCARDIA WITH SHORT CA INTERVAL BORDERLINE RIGHT AXIS DEVIATION NONSPECIFIC T-WAVE ABNORMALITY ABNORMAL RHYTHM ECG Compared to prior electrocardiogram, rate has increased PREVIOUS TRACING : 04/14/2017 06.04 DOCTOR: Sánchez Loo Interpretating Date/Time 05/03/2017 07:59:58
== END 2017-05-03 09:20 | disposition home or self-care (01) ==
LOC: NEPE 20:39
DX: T50.905A Adverse effect of unspecified drugs, medicaments and biological substances, initial encounter (principal); R00.0 Tachycardia, unspecified; I38 Endocarditis, valve unspecified; R94.31 Abnormal electrocardiogram [ECG] [EKG]; F17.210 Nicotine dependence, cigarettes, uncomplicated; Z85.828 Personal history of other malignant neoplasm of skin; Z79.899 Other long term (current) drug therapy
CPT/HCPCS: 71275; 80053; 80307; 82550; 82552; 83735; 84484; 85025; 85610; 85730; 93005; 99285; Q9967

== ENCOUNTER 2017-05-03 23:35 | Emergency (ER) | payer SELFPAY ==
[~2017-05-03] VITALS: Ht 177.8 cm; Wt 75.0 kg
[2017-05-03 23:37] VITALS: BP 149/68; PULSE 125; RESP 18; TEMP 98.8; O2SAT 100
[2017-05-04 00:15] VITALS: BP_SYST 116; BP_SYST 123; BP_DIAS 52; BP_DIAS 58; O2SAT 98
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
[2017-05-04] MEDS ORDERED: SODIUM CHLOR 0.9% 1000 ML INJ 1,000 ML IV ONE ×2 (00:30→02:45)
[2017-05-04] MEDS ORDERED: SODIUM CHLORIDE 0.9% FLUSH 10 ML FLUSH IVF PRN (00:30)
--- NOTE | 2017-05-04 00:39 | RADRPT ---
EXAM DATE/TIME: 05/04/2017 00:29 [facility] COMPARISON: CHEST SINGLE AP, April 14, 2017, 6:47. INDICATIONS : Chest pain. MEDICAL HISTORY : Endocarditis SURGICAL HISTORY : None. ENCOUNTER: Initial ACUITY: 2 months PAIN SCORE: 7/10 LOCATION: Bilateral chest FINDINGS: A single view of the chest demonstrates the lungs to be symmetrically aerated without evidence of mas s, infiltrate or effusion. The cardiomediastinal contours are unremarkable. Osseous structures are intact. CONCLUSION: No acute disease. Tomi Elizabeth MD on May 04, 2017 at 0:38 Board Certified Radiologist. This report was verified electronically.
[2017-05-04 00:41] LABS: AUTOMATED NEUTROPHIL # 5.9 TH/MM3 (1.8-7.7); BASOPHIL # 0.1 TH/MM3 (0-0.2); BASOPHIL % 0.5 % (0.0-2.0); EOSINOPHIL # 0.1 TH/MM3 (0-0.4); HEMATOCRIT 35.4 % (39.0-51.0); HEMO FLAGS DIFF FINAL; LYMPH % 25.2 % (9.0-44.0); LYMPHOCYTE # 2.5 TH/MM3 (1.0-4.8); MEAN CORPUSCULAR HEMOGLOBIN 29.6 PG (27.0-34.0); MEAN CORPUSCULAR HGB CONC 34.8 % (32.0-36.0); MONO % 13.8 % (0.0-8.0); NEUT % 59.5 % (16.0-70.0); PLATELET COUNT 392 TH/MM3 (150-450); RED BLOOD COUNT 4.17 MIL/MM3 (4.50-5.90); RED CELL DISTRIBUTION WIDTH 13.3 % (11.6-17.2)
[2017-05-04 00:46] LABS: CHLORIDE 102 MEQ/L (98-107); POTASSIUM 3.4 MEQ/L (3.5-5.1); SODIUM (NA) 136 MEQ/L (136-145)
[2017-05-04 00:50] LABS: ANION GAP 11 MEQ/L (5-15); BICARBONATE 23.1 MEQ/L (21.0-32.0); BLOOD UREA NITROGEN 16 MG/DL (7-18); MAGNESIUM 2.3 MG/DL (1.5-2.5)
[2017-05-04 00:53] LABS: ALT (GPT) 229 U/L (12-78); APTT (PATIENT) 27.2 SEC (24.3-30.1); AST (GOT) 93 U/L (15-37); GLOMERULAR FILTRATION RATE 92 ML/MIN (>89); INTERNATIONAL NORMALIZED RATIO 1.1 RATIO; PROTHROMBIN TIME - PATIENT 11.3 SEC (9.8-11.6)
[2017-05-04 00:55] LABS: TOTAL BILIRUBIN ADULT 1.1 MG/DL (0.2-1.0)
[2017-05-04 00:56] LABS: ALKALINE PHOSPHATASE 87 U/L (45-117); CREATINE KINASE 329 U/L (39-308)
[2017-05-04 01:08] LABS: CKMB 2.4 NG/ML (0.5-3.6)
[2017-05-04 01:58] VITALS: BP 116/52; PULSE 103; RESP 16; O2SAT 100
[2017-05-04] MEDS ORDERED: KETOROLAC TROMETHAMINE 30 MG/ML (IVP) VIAL IV PUSH ONE (02:45)
[2017-05-04 04:31] VITALS: BP 131/68
[2017-05-04 04:43] VITALS: RESP 20
--- NOTE | 2017-05-04 14:06 | EKG ---
Date Performed: 05/03/2017 Time Performed: 23:59:18 PTAGE: 26 years EKG: SINUS TACHYCARDIA WITH SHORT OR INTERVAL ABNORMAL RHYTHM ECG PREVIOUS TRACING : 05/02/2017 21.55 Compared to prior tracing no significant change DOCTOR: Emery Whittaker Interpretating Date/Time 05/04/2017 14:06:10
== END 2017-05-04 04:49 | disposition home or self-care (01) ==
LOC: PHED 23:35
DX: F15.10 Other stimulant abuse, uncomplicated (principal); R00.2 Palpitations; R94.31 Abnormal electrocardiogram [ECG] [EKG]; F12.90 Cannabis use, unspecified, uncomplicated
CPT/HCPCS: 71010; 80053; 80307; 82550; 82552; 83735; 84484; 85025; 85379; 85610; 85730; 93005; 96361; 96374; 99285; J1885; J7030